=== PATIENT | female | born 1945 | race Caucasian/White ===

== ENCOUNTER → 2018-05-31 10:55 | Outpatient (CLI) | payer MEDICARE, OTHER, SELFPAY ==
--- NOTE | 2018-05-31 11:30 | MRI_ITS ---
STUDY: MRI BRAIN WITH AND WITHOUT CONTRAST REASON FOR EXAM: Female, 73 years old. Ataxia, bilateral ear fullness. TECHNIQUE: Standardized multiplanar fat and water weighted pulse sequences were obtained. 7 ml of Gadavist contrast material was administered intravenously for the contrast portion of the examination. COMPARISON: None. FINDINGS: There is mild cerebral atrophy with widening of the extra-axial spaces and ventricular dilatation. There are a limited number of small white matter hyperintensities, distributed throughout the deep white matter tracts of the cerebral hemispheres, consistent with mild chronic white matter ischemic changes. Normal bilateral basal ganglia. Normal thalami. There is no extra-axial fluid accumulation. Normal flow voids within the major intracranial circulation suggesting patency by spin echo criteria. There is no enhancing intra-axial or extra-axial abnormality. There is no intracranial mass or enhancing lesion. 7th and 8th cranial nerves are unremarkable. There is no enhancing lesion within the internal auditory canals. Cerebellopontine angles are unremarkable. Normal midbrain, amaury and medulla. Normal cerebellum. Normal basal cisterns. Normal bilateral temporal bones. Normal bilateral internal auditory canals. No demonstrated orbital abnormality, within the constraints of a routine brain study. Normal visualized paranasal sinuses. Normal calvarium and skull base. Normal visualized soft tissue structures. Normal visualized upper cervical spine. MRI/Brain W/WO Contrast IMPRESSION: 1. Mild chronic microvascular ischemic changes. Mild atrophy. 2. Normal IACs. Electronically Signed: Lauren Luna MD at 21:01 EDT Tel , Service support ,
[2018-05-31 11:35] LABS: CREATININE FINGERSTICK 0.9 mg/dL (0.55-1.02); EGFR FINGERSTICK > 60.0000 mL/min (>60)
== END ==
PROVIDERS: Visit Provider Otolaryngology Otolaryngology/Facial Plastic Surgery
DX: R27.0 Ataxia, unspecified (principal)
CPT/HCPCS: 70553; A9585

== ENCOUNTER → 2018-06-11 15:17 | Outpatient (CLI) | payer MEDICARE, OTHER, SELFPAY ==
[2018-06-11 17:48] LABS: Absolute Lymphocyte Count 1.35 X10^3/ul (0.83-4.51); Absolute Neutrophil Count 4.1 X10^3/uL (2.0-7.7); Basophil# 0.03 X10^3/uL; Basophil% 0.5 % (0-1); Eosinophil# 0.06 X10^3/uL; Hematocrit 36.3 % (37-47); Hemoglobin 12.1 g/dl (12.0-15.0); Lymphocyte # 1.35 X10^3/ul (4.0); Lymphocyte % 22.5 % (19-41); Mean Corp Hgb Conc 33.3 g/gl (32-36); Mean Corpuscular Hgb 31.5 pg (27.0-32.0); Mean Corpuscular Volume 94.5 fL (81-99); Mean Platelet Vol. 10.4 fl (6.2-12.0); Monocyte# 0.43 X10^3/uL; Monocyte% 7.2 % (0-10); Neutrophil # 4.13 X10^3/uL (2.7-7.7); Neutrophil % 68.6 % (47-70); Platelet Count 211 K/mm3 (150-450); RBC Distribution Width CV 12.8 % (11.6-14.6); RBC Distribution Width SD 43.3 fl (35.1-43.9); Red Blood Count 3.84 M/mm3 (4.2-5.4)
[2018-06-11 17:52] LABS: POSITIVE COUNT NO; POSITIVE DIFFERENTIAL NO; POSITIVE MORPHOLOGY NO
[2018-06-11 18:06] LABS: Vitamin B12 294 pg/mL (211-911)
[2018-06-11 18:27] LABS: AST(SGOT) 19 U/L (15-37); Alanine Aminotransfer ALT/SGPT 23 U/L (13-56); Albumin, Serum 3.5 g/dL (3.2-5.0); Alkaline Phosphatase 68 U/L (45-117); Anion Gap 8 (5-15); BUN 27 mg/dL (7-18); BUN/Creat Ratio 31.1 RATIO (10-20); Calcium,Total 8.8 mg/dL (8.5-10.1); Chloride 107 mmol/L (98-107); Creatinine, Serum 0.87 mg/dL (0.55-1.02); EST Glomerular Filtration Rate 68 mL/min (>60); Est Glom Filt Rate - Afr Amer 82 mL/min (>60); Ferritin 82 ng/mL (8-252); Globulin 3.6 g/dL (2.2-4.2); Glucose 91 mg/dL (74-106); Iron 50 ug/dL (50-170); Iron Binding Capacity,Total 303 ug/dL (250-450); Potassium 3.9 mmol/L (3.5-5.1); Protein, Total 7.1 g/dL (6.4-8.2); Sodium Level 142 mmol/L (136-145); Thyroid Stim Hormone (TSH) 0.63 uIU/mL (0.358-3.74)
== END ==
PROVIDERS: Family Provider Family Medicine; PCP Family Medicine; Visit Provider Family Medicine
DX: R35.8 Other polyuria (principal); R42 Dizziness and giddiness; D64.9 Anemia, unspecified
CPT/HCPCS: 36415; 80053; 82607; 82728; 82746; 83540; 83550; 84443; 85025

== ENCOUNTER → 2018-07-08 13:51 | Outpatient (CLI) | payer MEDICARE, OTHER, SELFPAY ==
--- NOTE | 2018-07-08 13:53 | ECHOD_ITS ---
Reason For Study: Murmur Procedure This was a 2D Doppler, Color Flow transthoracic echocardiogram. Exam performed in department. Left Ventricle Normal size and thickness. The estimated ejection fraction is 65 %. Stage 1 diastolic dysfunction. No regional wall motion abnormalities noted. Right Ventricle Normal size and thickness. Normal systolic function. Atria Normal left atrium. Normal right atrium. Normal atrial septum. Bubble contrast study negative for right to left interatrial shunt. Mitral Valve The mitral valve is structurally normal. No prolapse or stenosis seen. Trivial mitral valve insufficiency. Tricuspid Valve Normal tricuspid valve. Mild (1+) tricuspid valve insufficiency. Right ventricular systolic pressure estimated to be 26 mmHg. Aortic Valve Trisinus/trileaflet aortic valve. Trivial aortic valve insufficiency. Pulmonic Valve Normal pulmonic valve. Great Vessels Normal aortic root. Normal arch. Normal inferior vena cava. Inferior vena cava collapse with sniff. Pericardium/Pleural No pericardial effusion. Medication 20 gauge I.V. with prn adaptor inserted into left arm. Performed a rapid injection of agitated mix of 9 cc saline and 1cc air to assess for atrial septal defect. MMode/2D Measurements & Calculations LVIDd: 4.4 cm IVSd: 1.1 cm Ao root diam: 3.5 cm LVIDs: 2.4 cm LVPWd: 1.1 cm LA dimension: 3.2 cm RVDd: 3.2 cm FS: 45.5 % LAV(MOD-bp): 43.5 ml LA A4 area: 16.7 cm2 RA A4 area: 12.6 cm2 LAV(MOD-bp) Indexed: 26.7 ml/m2 LAV(MOD-sp2): 49.4 ml LAV(MOD-sp4): 37.7 ml Time Measurements MV dec time: 0.19 sec Doppler Measurements & Calculations MV E max luis: 71.7 cm/sec Lat Peak E' Luis: 8.7 cm/sec MV V2 max: 93.8 cm/sec MV A max luis: 83.8 cm/sec E/E' lat: 8.2 MV max P.5 mmHg MV E/A: 0.86 MV V2 mean: 50.6 cm/sec MV mean P.2 mmHg MV V2 VTI: 26.7 cm MV P1/2t max luis: 82.8 cm/sec Ao V2 max: 128.1 cm/sec AI max luis: 417.9 cm/sec MV P1/2t: 64.6 msec Ao max P.6 mmHg AI max P.8 mmHg MV dec slope: 375.7 cm/sec2 Ao V2 mean: 81.2 cm/sec AI dec slope: 210.9 cm/sec2 MVA(P1/2t): 3.4 cm2 Ao mean P.1 mmHg AI P1/2t: 580.4 msec Ao V2 VTI: 25.7 cm LV V1 max: 98.5 cm/sec PA V2 max: 89.6 cm/sec TR max luis: 232.3 cm/sec LV V1 max P.9 mmHg TR max P.6 mmHg LV V1 mean P.8 mmHg LV V1 mean: 63.2 cm/sec LV V1 VTI: 21.1 cm Interpretation Summary The estimated ejection fraction is 65 %. Stage 1 diastolic dysfunction. Trivial mitral valve insufficiency. Mild (1+) tricuspid valve insufficiency. Right ventricular systolic pressure estimated to be 26 mmHg. Trivial aortic valve insufficiency. Bubble contrast study negative for right to left interatrial shunt. There is no comparison study available. Ordering Physician: Dane Castro Referring Physician: Dane Castro Performed By: Iain Vega RCS
== END ==
PROVIDERS: Family Provider Family Medicine; PCP Family Medicine; Referring Provider Family Medicine; Visit Provider Family Medicine
DX: R01.1 Cardiac murmur, unspecified (principal)
CPT/HCPCS: 93306; A4216

== ENCOUNTER → 2018-08-12 11:52 | Outpatient (CLI) | payer MEDICARE, OTHER, SELFPAY ==
--- NOTE | 2018-08-12 11:58 | BI_ITS ---
MAMMOGRAPHY - BILATERAL SCREENING REASON FOR EXAM: Female, 73 years old. Routine annual screening examination. PERTINENT HISTORY: Non-contributory. TECHNIQUE: Digital bilateral breast bety (3D mammographic acquisition) in the CC and MLO projections. 2-D mediolateral oblique (MLO) and craniocaudad (CC) views of both breasts were obtained. CAD: Full Field Digital Mammography with Computer Added Detection was performed. COMPARISON: No comparison mammograms available at this time. If any prior films become available, an addendum to this report can be generated. FINDINGS: Breast Composition: There are scattered areas of fibroglandular density. There are no dominant masses or suspicious calcifications. No other significant abnormalities are identified. BI/SCREENING MAMM (CAD), BILAT IMPRESSION: Negative screening mammogram. Yearly followup mammogram recommended. (A) ASSESSMENT CATEGORY: BIRADS Category 1: Negative. A letter regarding these results will be sent to the patient by the facility within 30 days. Approximately 10% of breast cancers are not detected by mammography. A normal mammogram should not delay biopsy of a clinically suspicious abnormality. [id number] Electronically Signed: Pedro Sorto MD at 15:26 EST Tel [phone], Service support ,
== END ==
PROVIDERS: Family Provider Family Medicine; PCP Family Medicine; Visit Provider Family Medicine
DX: Z12.31 Encounter for screening mammogram for malignant neoplasm of breast (principal)
CPT/HCPCS: 77063; 77067

== ENCOUNTER 2018-08-30 07:11 | Day surgery (SDC) | payer MEDICARE, OTHER, SELFPAY ==
[2018-08-12 15:21] VITALS: BMI 28.2
[2018-08-30] VITALS (7 sets, daily range): BP systolic 126–138; BP diastolic 65–73; PULSE 66–78; RESP 16–18; TEMP 36.2–36.9; O2SAT 96–100; BMI 29.0
--- NOTE | 2018-08-30 08:44 | OP.ENDO_ITS ---
Patient Name: Sharita Crews Procedure Date: 08/30/2018 8:15 AM Date of : 1945 Age: 73 Procedure: Colonoscopy Indications: Screening for colorectal malignant neoplasm Providers: Marcial Shepard MD Referring MD: Dane Castro Medicines: See the Anesthesia note for documentation of the administered medications Patient Profile: Last Colonoscopy: none. The patient's first colonoscopy is today. Complications: No immediate complications. Procedure: Pre-Anesthesia Assessment: - Prior to the procedure, a History and Physical was performed, and patient medications and allergies were reviewed. The patient's tolerance of previous anesthesia was also reviewed. The risks and benefits of the procedure and the sedation options and risks were discussed with the patient. All questions were answered, and informed consent was obtained. Prior Anticoagulants: The patient has taken no previous anticoagulant or antiplatelet agents. ASA Grade Assessment: II - A patient with mild systemic disease. After reviewing the risks and benefits, the patient was deemed in satisfactory condition to undergo the procedure. After I obtained informed consent, the scope was passed under direct vision. Throughout the procedure, the patient's blood pressure, pulse, and oxygen saturations were monitored continuously. The pediatric colonoscope was introduced through the anus and advanced to the cecum, identified by appendiceal orifice and ileocecal valve. The colonoscopy was performed without difficulty. The patient tolerated the procedure well. The quality of the bowel preparation was good. The ileocecal valve and the appendiceal orifice were photographed. Scope In: 8:27:36 AM Scope Withdrawal Time 0 hours 6 minutes 35 seconds Scope Out: 8:40:08 AM Total Procedure Duration Time 0 hours 12 minutes 32 seconds Findings: The digital rectal exam findings include non-thrombosed external hemorrhoids, non-thrombosed internal hemorrhoids and internal hemorrhoids that prolapse with straining, but spontaneously regress to the resting position (Grade II). Pertinent negatives include normal sphincter tone. Multiple diverticula were found in the sigmoid colon. The exam was otherwise without abnormality. Impression: - Non-thrombosed external hemorrhoids, non-thrombosed internal hemorrhoids and internal hemorrhoids that prolapse with straining, but spontaneously regress to the resting position (Grade II) found on digital rectal exam. - Diverticulosis in the sigmoid colon. - The examination was otherwise normal. - No specimens collected. Recommendation: - Discharge patient to home. - Resume previous diet. - Continue present medications. - Repeat colonoscopy in 10 years for screening purposes. Procedure Code(s): --- Professional --- 34666, Colonoscopy, flexible; diagnostic, including collection of specimen(s) by brushing or washing, when performed (separate procedure) Diagnosis Code(s): --- Professional --- Z12.11, Encounter for screening for malignant neoplasm of colon K64.1, Second degree hemorrhoids K64.4, Residual hemorrhoidal skin tags K57.30, Diverticulosis of large intestine without perforation or abscess without bleeding CPT copyright 2017 [employer] [employer]. All rights reserved. The codes documented in this report are preliminary and upon agent review may be revised to meet current compliance requirements. Marcial Shepard MD 08/30/2018 8:43:56 AM This report has been signed electronically. Number of Addenda: 0 Note Initiated On: 08/30/2018 8:15 AM
--- OUTSIDE RECORDS SUMMARY | 2018-10-15 18:56 | XMS RPT_ITS ---
:1945 Author Organization OHIP Care Team Providers Name Role Phone Marcial Shepard Attending Unavailable Willi Ceja Attending Unavailable Willi Ceja Referring Unavailable Primay Care Physicia, No Primary Care Unavailable Dane Castro Attending Unavailable Dane Castro Primary Care Unavailable Dane Castro Attending Unavailable Dane Castro Primary Care Unavailable Dane Castro Referring Unavailable Thom Chavez Attending Unavailable Dane Castro Referring Unavailable Dane Castro Attending Unavailable Dane Castro Primary Care Unavailable Marcial Shepard Attending Unavailable Dane Castro Referring Unavailable Marcial Shepard Attending Unavailable Marcial Shepard Referring Unavailable Dane Castro Primary Care Unavailable PROBLEMS PROBLEMS DATE TYPE CONDITION / CODE ATTENDING STATUS SOURCE 10/01/2018 Unknown Z12.11 - Encounter Marcial Shepard for screening for Community malignant neoplasm [facility] / Repository Z12.11(ICD-10) 10/01/2018 Unknown K64.1 - Second Marcial Shepard degree hemorrhoids / Community K64.1(ICD-10) Hospital Repository 10/01/2018 Unknown K57.30 - Marcial Sheaprd Diverticulosis of [facility] large intestine [facility] without perforation Repository or abscess without bleeding / K57.30(ICD-10) PROCEDURES PROCEDURES No Procedure Records FoundRESULTS RESULTS OPERATIVE REPORT - Observed: 08/30/2018 Status: F Source: [facility] 8:44 AM [facility] REPOSITORY [facility] Medical Records Department [address] [place] [address] Operative Report - Endoscopy MR#: [id number] Acct: [id number] Name: SHARITA CREWS Rep #: [id number] : 1945 73 From: Marcial Shepard MD PCP: Dane Castro MD Status: REG [facility] Patient Name: Sharita Crews Procedure Date: 08/30/2018 8:15 AM Date of : 1945 Age: 73 Procedure: Colonoscopy Indications: Screening for colorectal malignant neoplasm Providers: Marcial Shepard MD Referring MD: Dane Castro Medicines: See the Anesthesia note for documentation of the administered medications Patient Profile: Last Colonoscopy: none. The patient's first colonoscopy is today. Complications: No immediate complications. Procedure: Pre-Anesthesia Assessment: - Prior to the procedure, a History and Physical was performed, and patient medications and allergies were reviewed. The patient's tolerance of previous anesthesia was also reviewed. The risks and benefits of the procedure and the sedation options and risks were discussed with the patient. All questions were answered, and informed consent was obtained. Prior Anticoagulants: The patient has taken no previous anticoagulant or antiplatelet agents. ASA Grade Assessment: II - A patient with mild systemic disease. After reviewing the risks and benefits, the patient was deemed in satisfactory condition to undergo the procedure. After I obtained informed consent, the scope was passed under direct vision. Throughout the procedure, the patient's blood pressure, pulse, and oxygen saturations were monitored continuously. The pediatric colonoscope was introduced through the anus and advanced to the cecum, identified by appendiceal orifice and ileocecal valve. The colonoscopy was performed without difficulty. The patient tolerated the procedure well. The quality of the bowel preparation was good. The ileocecal valve and the appendiceal orifice were photographed. Scope In: 8:27:36 AM Scope Withdrawal Time 0 hours 6 minutes 35 seconds Scope Out: 8:40:08 AM Total Procedure Duration Time 0 hours 12 minutes 32 seconds Findings: The digital rectal exam findings include non-thrombosed external hemorrhoids, non-thrombosed internal hemorrhoids and internal hemorrhoids that prolapse with straining, but spontaneously regress to the resting position (Grade II). Pertinent negatives include normal sphincter tone. Multiple diverticula were found in the sigmoid colon. The exam was otherwise without abnormality. Impression: - Non-thrombosed external hemorrhoids, non-thrombosed internal hemorrhoids and internal hemorrhoids that prolapse with straining, but spontaneously regress to the resting position (Grade II) found on digital rectal exam. - Diverticulosis in the sigmoid colon. - The examination was otherwise normal. - No specimens collected. Recommendation: - Discharge patient to home. - Resume previous diet. - Continue present medications. - Repeat colonoscopy in 10 years for screening purposes. Procedure Code(s): --- Professional --- 48708, Colonoscopy, flexible; diagnostic, including collection of specimen(s) by brushing or washing, when performed (separate procedure) Diagnosis Code(s): --- Professional --- Z12.11, Encounter for screening for malignant neoplasm of colon K64.1, Second degree hemorrhoids K64.4, Residual hemorrhoidal skin tags K57.30, Diverticulosis of large intestine without perforation or abscess without bleeding CPT copyright 2017 [employer]. All rights reserved. The codes documented in this report are preliminary and upon per diem clerk review may be revised to meet current compliance requirements. Marcial Shepard MD 08/30/2018 8:43:56 AM This report has been signed electronically. Number of Addenda: 0 Note Initiated On: 08/30/2018 8:15 AM 08/30/18 0843 Date Marcial Shepard MD Cosign Signature: Date (if indicated) CC: Dane Castro MD; Marcial Shepard MD Date Dictated: 08/30/18814 Date Transcribed: Gambling Floor Supervisor: SURYA Signed SURGERY VISIT REPORT Observed: 08/12/2018 Status: F Source: [place] 6:04 PM [facility] REPOS[facility] [address] [place] [address] OFFICE VISIT Date of Service: 08/12/18 MR#: [id number] Acct: [id number] Name: SHARITA CREWS Rep #: [id number] : 1945 Provider: Marcial Shepard MD Age/Sex: 73/F Location: [facility] Status: Signed Intake Vital Signs08/12/18 Height 5 ft 0.75 in 08/12/18 Weight: 148 lb 08/12/18 Body Mass Index (BMI) 28.2 Intake Visit 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 Hand Required: No Is patient in pain?: No Allergies No Known Allergies Allergy (Unverified 08/12/18 15:21) Medications NK 08/12/18 [History Confirmed 08/12/18] PFSH Medical History Screening for intestinal cancer (Acute) Surgical History S/P cataract extraction (Acute) s/p dental extraction (Acute) Family History Mother Diabetes Heart disease Hypertension CVA (cerebral vascular accident) Thyroid disorder Father Heart disease Brother CAD (coronary artery disease) Social History Smoking Status: Never smoker alcohol intake: never HPI HPI HPI: SHARITA CREWS, is a 73 F who presents to the office today for surgical consultation regarding a screening colonoscopy. The patient is age 73. She has never previously had a colonoscopy. She denies family history of colon cancer or colon polyps. On further discussion with her it is apparent apparently over the years that she has been variably compliant with her screening mammography as well. She denies bright red blood per rectum or melena. The patient is referred by Dr Dane Castro for a screening colonoscopy and a written copy of my surgical consult and recommendations will be returned to him. Fortunately she otherwise enjoys a good quality of life ROS General General: Yes fatigue; no weight change, appetite, colon cancer, breast cancer or weakness HEENT HEENT: Yes eye injury and eye surgery; no difficulty swallowing, swollen glands or hoarseness Endo Endocrine: No thyroid disease, diabetes mellitus, thyroid cancer, Hair loss, heat intolerance or cold intolerance Skin Skin: Yes rash; no changing moles Breast Breast: No left breast lump, right breast lump, nipple discharge, breast pain, abnormal mammogram, abnormal US or breast enlargement Musc Musculoskeletal: No back problems, arthritis, rheumatoid arthritis, gout or joint pain Cardio Cardiovascular: Yes murmur; no pacemaker, heart disease, atrial fibrillation, high blood pressure, heart attack, heart stent, palpitations, shortness of breat with exertion or chest pain Psych Psychiatric: No depression, anxiety or hearing voices Resp Respiratory: No shortness of breath, No sleep apnea, No cough, No COPD, No asthma, No emphysema, No wheezing Gastro Gastrointestinal: Yes nausea or vomiting, No abdominal pain, No diarrhea, No constipation, No blood in stool, No acid reflux, No hemorrhoids, No ulcers, No gallbladder problem, No black,tarry stools Keny Hematologic: No blood thinners, No blood disorders, No bleeding, No anemia, No blood clots Neuro Neurologic: No system reviewed and no additional complaints, except as docu, No as per HPI, No abnormal walking, No abnormal hearing, No abnormal movements, No abnormal speech, No behavioral changes, No burning sensations, No confusion, No seizure-like activity, No unsteadiness, No dizziness, No localized weakness, No frequent falls, No headache(s), No lack of coordination, No loss of vision, No memory loss, No numbness, No other visual disturbances, No radiating pain, No restless legs, No sensory deficit, No fainting, No tingling, No tremor(s), No weakness, No other Exam Const General: cooperative, healthy appearing Nutritional Appearance: overweight Orientation: alert, awake, oriented x3 HENMT Head: normal to inspection Chest Chest palpation AND inspection: normal inspection of the chest Breast Palpation: No nipple discharge Resp Effort AND Inspection: normal respiratory effort Auscultation: clear to auscultation bilaterally Cardio Rate: regular rate Rhythm: regular rhythm Heart Sounds: murmur GI Palpation: soft, no hepatosplenomegaly Auscultation: normal bowel sounds Skin General: no rashes or lesions noted Neuro General: alert Extrem General: no clubbing, cyanosis or edema Psych Affect: normal affect Assessment AND Plan Problems 1. Screening for intestinal cancer Z12.10 Plan I am recommending to the patient a screening colonoscopy with possible biopsy or polypectomy is indicated. She is aware of the technique, benefits, risks, alternatives. She is older at age 73. I will pursue with monitored anesthesia care. She has had an opportunity to ask and have questions answered. We will schedule and proceed at her discretion. I very much appreciate the ongoing opportunity of assisting with her surgical care. Cc: Dr Dane Shepard M.D., F.A.C.S. Orders Orders: Coding Level of Care Code Exp prob focused,strt fwd Diagnoses Screening for intestinal cancer Z12.10 08/12/18 1804 <Electronically signed by Marcial Sheaprd MD> Date Marcial Shepard MD Cosigner Signature: Date (if applicable) CC: Dane Castro MD SCREENING MAMM (CAD), Observed: 08/12/2018 Status: F Source: [facility] 11:58 AM [facility] REPOSIT[facility] Imaging Services [address] [place] [id number] SCREENING MAMM (CAD), BILAT MR#: [id number] Acct: [id number] Name: SHARITA CREWS Rep #: [id number] : 1945 F 73 From: Pedro Sorto MD PCP: Dane Castro MD Status: [facility] Study: SCREENING MAMM (CAD), BILAT Date of Exam: 08/12/18 Exam# [id number] Ordering Dr: Dane Castro MD MAMMOGRAPHY - BILATERAL SCREENING REASON FOR EXAM: Female, 73 years old. Routine annual screening examination. PERTINENT HISTORY: Non-contributory. TECHNIQUE: Digital bilateral breast bety (3D mammographic acquisition) in the CC and MLO projections. 2-D mediolateral oblique (MLO) and craniocaudad (CC) views of both breasts were obtained. CAD: Full Field Digital Mammography with Computer Added Detection was performed. COMPARISON: No comparison mammograms available at this time. If any prior films become available, an addendum to this report can be generated. FINDINGS: Breast Composition: There are scattered areas of fibroglandular density. There are no dominant masses or suspicious calcifications. No other significant abnormalities are identified. BI/SCREENING MAMM (CAD), BILAT IMPRESSION: Negative screening mammogram. Yearly followup mammogram recommended. (A) ASSESSMENT CATEGORY: BIRADS Category 1: Negative. A letter regarding these results will be sent to the patient by the facility within 30 days. Approximately 10% of breast cancers are not detected by mammography. A normal mammogram should not delay biopsy of a clinically suspicious abnormality. [id number] Electronically Signed: Pedro Sorto MD at 15:26 EST Tel [phone], Service support , CC: Dane Castro MD Gambling Floor Supervisor: Signed ECHOCARDIOGRAM COMPLETE Observed: 07/09/2018 Status: F Source: [place] 9:33 AM [facility] REPOSITORY [facility] Cardiovascular Services [address] [place] [address] Echo Complete 07/08/18 1401 MR#: [id number] Acct: [id number] Name: SHARITA CREWS Rep #: [id number] : 1945 73 From: Thom Chavez MD Attending Dr: Dane Castro MD Status: REG CLI Ordering Dr: Dane Castro MD Date: 07/08/18 Location: [facility] Sex: F C Admitted: Reason For Study: Murmur Procedure This was a 2D Doppler, Color Flow transthoracic echocardiogram. Exam performed in department. Left Ventricle Normal size and thickness. The estimated ejection fraction is 65 %. Stage 1 diastolic dysfunction. No regional wall motion abnormalities noted. Right Ventricle Normal size and thickness. Normal systolic function. Atria Normal left atrium. Normal right atrium. Normal atrial septum. Bubble contrast study negative for right to left interatrial shunt. Mitral Valve The mitral valve is structurally normal. No prolapse or stenosis seen. Trivial mitral valve insufficiency. Tricuspid Valve Normal tricuspid valve. Mild (1+) tricuspid valve insufficiency. Right ventricular systolic pressure estimated to be 26 mmHg. Aortic Valve Trisinus/trileaflet aortic valve. Trivial aortic valve insufficiency. Pulmonic Valve Normal pulmonic valve. Great Vessels Normal aortic root. Normal arch. Normal inferior vena cava. Inferior vena cava collapse with sniff. Pericardium/Pleural No pericardial effusion. Medication 20 gauge I.V. with prn adaptor inserted into left arm. Performed a rapid injection of agitated mix of 9 cc saline and 1cc air to assess for atrial septal defect. MMode/2D Measurements AND Calculations LVIDd: 4.4 cm IVSd: 1.1 cm Ao root diam: 3.5 cm LVIDs: 2.4 cm LVPWd: 1.1 cm LA dimension: 3.2 cm RVDd: 3.2 cm FS: 45.5 % LAV(MOD-bp): 43.5 ml LA A4 area: 16.7 cm2 RA A4 area: 12.6 cm2 LAV(MOD-bp) Indexed: 26.7 ml/m2 LAV(MOD-sp2): 49.4 ml LAV(MOD-sp4): 37.7 ml Time Measurements MV dec time: 0.19 sec Doppler Measurements AND Calculations MV E max luis: 71.7 cm/sec Lat Peak E' Luis: 8.7 cm/sec MV V2 max: 93.8 cm/sec MV A max luis: 83.8 cm/sec E/E' lat: 8.2 MV max P.5 mmHg MV E/A: 0.86 MV V2 mean: 50.6 cm/sec MV mean P.2 mmHg MV V2 VTI: 26.7 cm MV P1/2t max luis: 82.8 cm/sec Ao V2 max: 128.1 cm/sec AI max luis: 417.9 cm/sec MV P1/2t: 64.6 msec Ao max P.6 mmHg AI max P.8 mmHg MV dec slope: 375.7 cm/sec2 Ao V2 mean: 81.2 cm/sec AI dec slope: 210.9 cm/sec2 MVA(P1/2t): 3.4 cm2 Ao mean P.1 mmHg AI P1/2t: 580.4 msec Ao V2 VTI: 25.7 cm LV V1 max: 98.5 cm/sec PA V2 max: 89.6 cm/sec TR max luis: 232.3 cm/sec LV V1 max P.9 mmHg TR max P.6 mmHg LV V1 mean P.8 mmHg LV V1 mean: 63.2 cm/sec LV V1 VTI: 21.1 cm Interpretation Summary The estimated ejection fraction is 65 %. Stage 1 diastolic dysfunction. Trivial mitral valve insufficiency. Mild (1+) tricuspid valve insufficiency. Right ventricular systolic pressure estimated to be 26 mmHg. Trivial aortic valve insufficiency. Bubble contrast study negative for right to left interatrial shunt. There is no comparison study available. Ordering Physician: Dane Castro Referring Physician: Dane Castro Performed By: Iain Vega RCS 07/09/18931 Date Thom Chavez MD CC: Dane Castro MD Date Dictated: 07/08/18 1401 Date Transcribed: 07/09/18931 Gambling Floor Supervisor: Signed CBC W/DIFF, AUTOMATED Collected: 06/11/2018 Status: F Source: [place] 3:18 PM [facility] REPOSIT[facility] TYPE CODE TESTS RESULT OUT OF RANGE REFERENCE UNITS LAB L100.1000 4.4-11.0 K/mm3 Normal WBC 6.0 LAB L100.1200 4.2-5.4 M/mm3 Low RBC 3.84 LAB L100.1300 12.0-15.0 g/dl Normal HGB 12.1 LAB L100.1400 37-47 % Low HCT 36.3 LAB L100.1500 81-99 fL Normal MCV 94.5 LAB L100.1600 27.0-32.0 pg Normal MCH 31.5 LAB L100.1700 32-36 g/gl Normal MCHC 33.3 LAB L100.1810 11.6-14.6 % Normal RDW CV 12.8 LAB L100.1820 35.1-43.9 fl Normal RDW SD 43.3 LAB L100.1900 150-450 K/mm3 Normal PLT 211 LAB L100.2000 6.2-12.0 fl Normal MPV 10.4 LAB L100.2100 47-70 % Normal NEUT% 68.6 LAB L100.2200 19-41 % Normal LY% 22.5 LAB L100.2300 0-10 % Normal MONO% 7.2 LAB L100.2400 0-5 % Normal EO% 1.0 LAB L100.2500 0-1 % Normal BASO% 0.5 LAB L100.2550 0.0-0.9 % Normal IM GRAN % 0.200 Result Comment: IG% - Immature Granulocytes (promyelocytes, myelocytes and metamyelocytes) > 1% indicates that a LEFT SHIFT is Present. LAB L100.2620 2.0-7.7 X10 3/uL Normal Absolute Neut 4.1 LAB L100.2720 0.83-4.51 X10 3/ul Normal Absolute Lymph 1.35 Performed By: #### L100.0100, L500.4050, L501.9520 #### [facility] [address] [place], [place], [address] COMPREHENSIVE METABOLIC Collected: 06/11/2018 Status: F Source: [facility] 3:18 PM [facility] Order Comment: Is Patient Taking Vitamins or Folic Acid Supplements? N TYPE CODE TESTS RESULT OUT OF RANGE REFERENCE UNITS LAB L501.0100 74-106 mg/dL Normal GLU 91 Result Comment: Please note revised GLUCOSE reference range effective 2017. LAB L501.1000 7-18 mg/dL High BUN 27 LAB L501.1100 0.55-1.02 mg/dL Normal CREAT,SERUM 0.87 Result Comment: The validity of the calculated GFR AND GFRAA in patients over 70 years has not been determined. Clinical correlation is essential. LAB L501.1110 >60 mL/min Normal EST GFR 68 Result Comment: Non- GFR Calc LAB L501.1115 >60 mL/min Normal EST GFR - AA 82 Result Comment: GFR Calc LAB L501.1300 10-20 RATIO High BUN/CRE 31.1 LAB L501.1500 6.4-8.2 g/dL T Normal PROT 7.1 LAB L501.1800 3.2-5.0 g/dL Normal ALB 3.5 LAB L501.1950 2.2-4.2 g/dL Normal GLOB 3.6 LAB L501.2000 0.9-2.4 RATIO Normal A/G 1.0 LAB L501.2200 8.5-10.1 mg/dL CA Normal 8.8 LAB L501.4100 15-37 U/L Normal AST 19 LAB L501.4305 45-117 U/L Normal ALK P 68 LAB L501.4405 13-56 U/L Normal ALT 23 LAB L501.4600 0.20-1.00 mg/dL T Normal BILI 0.20 LAB L501.5300 136-145 mmol/L NA Normal 142 LAB L501.5600 3.5-5.1 mmol/L K Normal 3.9 LAB L501.5900 98-107 mmol/L CL Normal 107 LAB L501.6100 21.0-32.0 mmol/L Normal CO2 27.0 LAB L501.6200 5-15 Normal GAP 8 Performed By: #### L100.0100, L500.4050, L501.9520 #### [facility] [address] [facility] [place], [address] THYROID STIM HORMONE Collected: 06/11/2018 Status: F Source: [facility] (T[facility]) 3:18 PM [facility] RE[facility] Order Comment: Is Patient Taking Vitamins or Folic Acid Supplements? N TYPE CODE TESTS RESULT OUT OF RANGE REFERENCE UNITS LAB L501.9520 0.358-3.74 uIU/mL Normal TSH 0.63 Performed By: #### L100.0100, L500.4050, L501.9520 #### [facility] [address] [facility] [place], [address] VITAMIN B12 Collected: 06/11/2018 Status: F Source: [place] 3:18 PM [facility] TYPE CODE TESTS RESULT OUT OF RANGE REFERENCE UNITS LAB L503.0105 211-911 pg/mL Normal Vitamin B12 294 Performed By: #### L503.0105, L503.6075, L503.6150, L503.6550, L506.0250 #### [facility] [address] [facility] [place], [address] IRON BINDING Collected: 06/11/2018 Status: F Source: [facility] 3:18 PM [facility] Order Comment: Is Patient Taking Vitamins or Folic Acid Supplements? N TYPE CODE TESTS RESULT OUT OF RANGE REFERENCE UNITS LAB L503.6075 250-450 ug/dL Normal TIBC 303 Performed By: #### L503.0105, L503.6075, L503.6150, L503.6550, L506.0250 #### [facility] [address] [place], [address] IRON Collected: 06/11/2018 Status: F Source: [place] 3:18 PM [facility] Order Comment: Is Patient Taking Vitamins or Folic Acid Supplements? N TYPE CODE TESTS RESULT OUT OF RANGE REFERENCE UNITS LAB L503.6150 50-170 ug/dL Normal IRON 50 Performed By: #### L503.0105, L503.6075, L503.6150, L503.6550, L506.0250 #### [facility] [address] [facility] [place], [address] FERRITIN Collected: 06/11/2018 Status: F Source: [place] 3:18 PM [facility] Order Comment: Is Patient Taking Vitamins or Folic Acid Supplements? N TYPE CODE TESTS RESULT OUT OF RANGE REFERENCE UNITS LAB L503.6550 8-252 ng/mL Normal FERRITIN 82 Performed By: #### L503.0105, L503.6075, L503.6150, L503.6550, L506.0250 #### [facility] [facility] [place], [address] FOLATES, (FOLIC ACID) Collected: 06/11/2018 Status: F Source: [place] 3:18 PM [facility] Order Comment: Is Patient Taking Vitamins or Folic Acid Supplements? N TYPE CODE TESTS RESULT OUT OF RANGE REFERENCE UNITS LAB L506.0250 3.1-55.4 ng/mL Normal FOLATES 19.00 Performed By: #### L503.0105, L503.6075, L503.6150, L503.6550, L506.0250 #### [facility] [address] [facility] [place], [address] CREATININE FINGERSTICK Collected: 05/31/2018 Status: F Source: [place] 11:22 AM [facility] RE[facility] TYPE CODE TESTS RESULT OUT OF RANGE REFERENCE UNITS LAB L9100.0210 0.55-1.02 mg/dL Normal CREATININE WB 0.9 LAB L9100.0220 >60 mL/min EGFR WB Normal > 60.0000 Performed By: #### L9100.0200 #### [facility] Point of Care [address] [place] [address] BRAIN W/WO CONTRAST Observed: 05/31/2018 Status: F Source: [place] 11:03 AM [facility] REPOSIT[facility] Imaging Services [address] [place] [address] Brain W/WO Contrast MR#: [id number] Acct: [id number] Name: SHARITA CREWS Rep #: [id number] : 1945 F 73 From: Lauren Luna MD PCP: Care Physician, No Primary Status: REG CLI Study: Brain W/WO Contrast Date of Exam: 05/31/18 Exam# [id number] Ordering Dr: Willi Ceja MD STUDY: MRI BRAIN WITH AND WITHOUT CONTRAST REASON FOR EXAM: Female, 73 years old. Ataxia, bilateral ear fullness. TECHNIQUE: Standardized multiplanar fat and water weighted pulse sequences were obtained. 7 ml of Gadavist contrast material was administered intravenously for the contrast portion of the examination. COMPARISON: None. FINDINGS: There is mild cerebral atrophy with widening of the extra- axial spaces and ventricular dilatation. There are a limited number of small white matter hyperintensities, distributed throughout the deep white matter tracts of the cerebral hemispheres, consistent with mild chronic white matter ischemic changes. Normal bilateral basal ganglia. Normal thalami. There is no extra-axial fluid accumulation. Normal flow voids within the major intracranial circulation suggesting patency by spin echo criteria. There is no enhancing intra- axial or extra-axial abnormality. There is no intracranial mass or enhancing lesion. 7th and 8th cranial nerves are unremarkable. There is no enhancing lesion within the internal auditory canals. Cerebellopontine angles are unremarkable. Normal midbrain, amaury and medulla. Normal cerebellum. Normal basal cisterns. Normal bilateral temporal bones. Normal bilateral internal auditory canals. No demonstrated orbital abnormality, within the constraints of a routine brain study. Normal visualized paranasal sinuses. Normal calvarium and skull base. Normal visualized soft tissue structures. Normal visualized upper cervical spine. MRI/Brain W/WO Contrast IMPRESSION: 1. Mild chronic microvascular ischemic changes. Mild atrophy. 2. Normal IACs. Electronically Signed: Lauren Luna MD at 21:01 EDT Tel , Service support , CC: No Primary Care Physician; Willi Ceja MD Gambling Floor Supervisor: Signed ALLERGIES ALLERGIES DATE TYPE / CODE NAME / CODE REACTION SEVERITY SOURCE 08/29/2018 Drug No Known Unknown Dania [facility] Allergy/4160 Allergies/F00 Hospital 23301(SNOMED [id number](RXNOR Repository CT) M) ENCOUNTERS ENCOUNTERS ADMIT/DISCHARGE ACCOUNT ADMITTING ENCOUNTER LOCATION SOURCE NUMBER CLASS 08/30/2018/ [id number] Ambulatory BMSBuilding:B Somis 8 5 [facility] Repository 08/30/2018/ [id number] Ambulatory Somis Somis 8 5 [facility] ing:ENRoom: Repository 14 08/12/2018/ [id number] Ambulatory BMSBuilding:B Dania 8 4 [facility] Repository 08/12/2018 [id number] Ambulatory Dania Dania 4 [facility] ing:OPBI Repository 07/08/2018 [id number] Ambulatory Dania Dania 8 [facility] ing:CVS Repository 07/08/2018 [id number] Ambulatory BMSBuilding:W Somis 5 [facility] Repository 06/11/2018 [id number] Ambulatory Somis Somis 6 [facility] ing:MFPLAB Repository 05/31/2018 [id number] Ambulatory Somis Somis 2 [facility] ing:MRI Repository PAYERS PAYERS ENCOUNTER GUARANTOR PAYER SUBSCRIBER SOURCE 08/30/2018 SHARITA Najera [id number] W Insurance:MEDICARE BURKHOLDERDOB: Community [place] PART A [id number] Number: Repository [id number]: 330 [id number] [phone] () Date:2018-08-13 08/30/2018 Secondary SHARITA E Somis Insurance:AARPPolicy BURKHOLDERDOB: Community Number: [id number] Hospital [id number] Repository Date:8031-01-36[address], [place] [address]CR: 08/30/2018 Tertiary NOT GIVENUNK Somis Insurance:SELF PAY [facility] Number: Effective Repository Date:2018-08-30 08/30/2018 SHARITA E Primary SHARITA E Dania [id number] Insurance:MEDICARE BURKHOLDERDOB: Community LARWILL PART A [id number] [place] Number[facility] Repository [id number]: 330 [id number] [phone] () Date:2018-08-13 08/30/2018 Secondary SHARITA E Dania Insurance:AARPPolicy BURKHOLDERDOB: Community Number: [id number] Hospital [id number] Repository Date:3860-56-63[address], [place] [address]NB: 08/30/2018 Tertiary NOT GIVENUNK Dania Insurance:SELF PAY [facility] Number: Effective Repository Date:2018-08-13 08/12/2018 SHARITA E Primary SHARITA E Somis [id number] [address] Insurance:MEDICARE BURKHOLDERDOB: Community LARWILL PART A [facility] [id number] Number: Repository [id number]: 330 [id number] [phone] () Date:2018-07-03 08/12/2018 Secondary SHARITA E Somis Insurance:AARPPolicy BURKHOLDERDOB: Community Number: [id number] Hospital [id number] Repository Date:4885-34-18[address], [place] [address]ZT: 08/12/2018 Tertiary NOT GIVENUNK Dania Insurance:SELF PAY [facility] Number: Effective Repository Date:2018-08-07 08/12/2018 SHARITA E Primary SHARITA E Dania [id number] W Insurance:MEDICARE BURKHOLDERDOB: Community LARWILL PART A [facility] [id number] Number: Repository [id number]: [phone] [id number] [phone] () Date:2018-07-03 08/12/2018 Secondary SHARITA E Dania Insurance:AARPPolicy BURKHOLDERDOB: Community Number: [id number] Hospital [id number] Repository Date:9623-22-15[address], [place] [address]BC: 08/12/2018 Tertiary NOT GIVENUNK Dania Insurance:SELF PAY [facility] Number: Effective Repository Date:2018-07-03 07/08/2018 SHARITA E Primary SHARITA E Somis [id number] [address] Insurance:MEDICARE BURKHOLDERDOB: Community LARWILL PART A [facility] [id number] Number[place] Repository [id number]: [phone] [id number] [phone] () Date:2018-07-04 07/08/2018 Secondary SHARITA E Somis Insurance:AARPPolicy BURKHOLDERDOB: Community Number: [id number] Hospital [id number] Repository Date:4684-06-35XJ [facility] [address], [place] [address]RI: 07/08/2018 Tertiary NOT GIVENUNK Somis Insurance:SELF PAY [facility] Number: Effective Repository Date:2018-07-04 07/08/2018 SHARITA E Primary SHARITA E Somis [id number] [address] Insurance:MEDICARE BURKHOLDERDOB: Community LARWILL PART A [id number] [place] Number: Repository [id number]: [phone] [id number] [phone] () Date:2018-07-04 07/08/2018 Secondary SHARITA E Dania Insurance:AARPPolicy BURKHOLDERDOB: Community Number: [id number] Hospital [id number] Repository Date:0141-96-01CB [facility] [place], [place] [address]CV: 07/08/2018 Tertiary NOT GIVENUNK Dania Insurance:SELF PAY [facility] Effective Repository Date:2018-07-08 06/11/2018 SHARITA E Primary SHARITA E Somis [id number] W Insurance:MEDICARE BURKHOLDERDOB: Community LARWILL PART A [facility] [id number] Number: Repository [id number]: 330 [id number] [phone] () Date:2018-06-11 06/11/2018 Secondary SHARITA E Somis Insurance:AARPPolicy BURKHOLDERDOB: Community Number: [id number] Hospital [id number] Repository Date:1873-04-75[address], [place] [address]ZE: 06/11/2018 Tertiary NOT GIVENUNK Dania Insurance:SELF PAY [facility] Number: Effective Repository Date:2018-06-11 05/31/2018 SHARITA E Primary SHARITA E Somis [id number] W Insurance:MEDICARE BURKHOLDERDOB: Community LARWILL PART A [facility] [id number] [place] Number: Repository [id number]: 330 [id number] [phone] () Date:2018-05-23 05/31/2018 Secondary SHARITA E Somis Insurance:AARPPolicy BURKHOLDERDOB: Community Number: [id number] Hospital [id number] Repository Date:1524-70-59WF [facility] [address]44[address], [place] [address]LK: 05/31/2018 Tertiary NOT GIVENUNK Somis Insurance:SELF PAY [facility] Number: Effective Repository Date:2018-05-23
== END 2018-08-30 09:36 | disposition home or self-care (01) ==
LOC: EN 07:12 → AC 07:13
PROVIDERS: Family Provider Family Medicine; PCP Family Medicine; Referring Provider Surgery; Visit Provider Surgery
PROC: 0DJD8ZZ Inspection of Lower Intestinal Tract, Via Natural or Artificial Opening Endoscopic (ICD-10-PCS; CPT 45378; principal; 2018-08-30 08:10)
DX: Z12.11 Encounter for screening for malignant neoplasm of colon (principal); K64.4 Residual hemorrhoidal skin tags; K57.30 Diverticulosis of large intestine without perforation or abscess without bleeding; K64.1 Second degree hemorrhoids; R01.1 Cardiac murmur, unspecified
CPT/HCPCS: G0121; J7120

== ENCOUNTER → 2018-10-24 08:22 | Outpatient (CLI) | payer MEDICARE, OTHER, SELFPAY ==
[2018-08-30 07:33] VITALS: BMI 29.0
--- NOTE | 2018-10-24 08:28 | BD_ITS ---
STUDY: DUAL ENERGY X-RAY ABSORPTIOMETRY / DXA REASON FOR EXAM: Female, 73 years old. The patient is postmenopausal. Loss of height. TECHNIQUE: Bone Mineral Density (BMD) measurements of lumbar spine and bilateral hips were obtained. COMPARISON: Comparison is made with prior examination of May 26, 1999. FINDINGS: Lumbar Spine (L1-L4): g/cm2 (1.369) / T-score (1.6) / Z-score (3.3) Findings are suggestive of normal bone density with a low fracture risk. Increased kyphosis. Left Femur Total: g/cm2 (1.211) / T-score (1.6) / Z-score (3.4) Left Femoral Neck: g/cm2 (1.053) / T-score (0.1) / Z-score (2.0) Right Femur Total: g/cm2 (1.098) / T-score (0.7) / Z-score (2.5) Right Femoral Neck: g/cm2 (0.977) / T-score (-0.4) / Z-score (1.5) The T-Scores on the most recent prior examination were: Lumbar Spine (L1-L4): There has been improvement of bone density since the previous examination. Left Femur Total: which represents a worsening of 1%. BD/Dexa Bone Density Study IMPRESSION: The patient is considered normal as outlined below according to World Vasu Organization (WHO) criteria with a low fracture risk. There has been improvement of bone density since the previous examination. Reference Information: The T-score is the number of standard deviations above or below the standard which is normal for young adults at their peak bone mineral density. The World Health Organization (WHO) interprets the T-scores as follows: Above -1 Normal bone density Between -1 and -2.5 Osteopenia Equal to / or below -2.5 Osteoporosis As a practical clinical guideline, osteopenia may be graded as follows: Mild -1 through -1.5 Moderate -1.6 through -2.0 Severe -2.1 through -2.4 The Z-score is the number of standard deviations above or below age-matched controls. A Z-score of less than -1.5 would be considered abnormal. References: 1. NIH Osteoporosis and Related Bone Diseases http://www.osteo.org 2. International Society for Clinical Densitometry http://www.iscd.org 3. National Osteoporosis Foundation http://www.nof.org Electronically Signed: Pedro Sorto MD at 15:48 EST , Service support ,
== END ==
PROVIDERS: Family Provider Family Medicine; PCP Family Medicine; Referring Provider Family Medicine; Visit Provider Family Medicine
DX: Z13.820 Encounter for screening for osteoporosis (principal); Z78.0 Asymptomatic menopausal state
CPT/HCPCS: 77080

== ENCOUNTER 2020-11-23 10:56 | Outpatient (RCR) | payer MEDICARE, SELFPAY ==
[2018-08-30 07:33] VITALS: BMI 29.0
[2020-11-23] MEDS: COVID-19 VACC, MRNA(PFIZER)/PF 30 MCG/0.3 ML SYRINGE IM (13:44)
[2020-12-14] MEDS: COVID-19 VACC, MRNA(PFIZER)/PF 30 MCG/0.3 ML SYRINGE IM (13:47)
== END 2021-02-22 23:59 ==
LOC: IMMUN 10:56
PROVIDERS: PCP Family Medicine; Visit Provider Family Medicine
DX: Z23 Encounter for immunization (principal)
CPT/HCPCS: 0001A; 0002A; 91300

== ENCOUNTER → 2022-02-28 | Outpatient (CLI) | payer BC, MEDICARE, SELFPAY ==
[2022-02-28 15:41] LABS: Absolute Lymphocyte Count 1.19 X10^3/uL (0.83-4.51); Absolute Neutrophil Count 4.2 X10^3/uL (2.0-7.7); Basophil# 0.04 X10^3/uL; Basophil% 0.7 % (0-1); Eosinophil# 0.05 X10^3/uL; Eosinophils% 0.8 % (0-5); Hematocrit 38.2 % (37-47); Hemoglobin 12.6 g/dL (12.0-15.0); Lymphocyte # 1.19 X10^3/ul (0.83-4.51); Lymphocyte % 20.1 % (19-41); Mean Corpuscular Hgb 31.1 pg (27.0-32.0); Mean Corpuscular Volume 94.3 fL (81-99); Mean Platelet Vol. 10.6 fl (6.2-12.0); Monocyte# 0.42 X10^3/uL; Monocyte% 7.1 % (0-10); NRBC Flagged by Analyzer 0 % (0-5); Neutrophil # 4.22 X10^3/uL (2.7-7.7); Neutrophil % 71.1 % (47-70); Platelet Count 219 K/mm3 (150-450); RBC Distribution Width CV 12.9 % (11.6-14.6); RBC Distribution Width SD 44.9 fl (35.1-43.9); Red Blood Count 4.05 M/mm3 (4.2-5.4); White Blood Count 5.9 K/mm3 (4.4-11.0)
[2022-02-28 17:01] LABS: AST(SGOT) 18 U/L (15-37); Alanine Aminotransfer ALT/SGPT 20 U/L (13-56); Albumin, Serum 3.9 g/dL (3.2-5.0); Alkaline Phosphatase 69 U/L (45-117); Anion Gap 4 (5-15); BUN 20 mg/dL (7-18); BUN/Creat Ratio 19.2 RATIO (10-20); Calcium,Total 9.4 mg/dL (8.5-10.1); Chloride 107 mmol/L (98-107); Cholesterol 254 mg/dL (200); Creatinine, Serum 1.04 mg/dL (0.55-1.02); EST Glomerular Filtration Rate 54 mL/min (>60); Est Glom Filt Rate - Afr Amer 66 mL/min (>60); Globulin 3.8 g/dL (2.2-4.2); Glucose 84 mg/dL (74-106); High Density Lipoprotein 71 mg/dL; Potassium 3.8 mmol/L (3.5-5.1); Protein, Total 7.7 g/dL (6.4-8.2); Sodium Level 141 mmol/L (136-145); Triglycerides 91 mg/dL; Very Low Density Lipoprotein 18 mg/dL (5-40)
== END | disposition home or self-care (01) ==
LOC: MTLAB 11:43
PROVIDERS: PCP Family Medicine; Referring Provider Nurse Practitioner Family; Visit Provider Nurse Practitioner Family
DX: Z00.00 Encounter for general adult medical examination without abnormal findings (principal)
CPT/HCPCS: 36415; 80053; 80061; 85025

== ENCOUNTER → 2022-07-06 | Outpatient (CLI) | payer BC, MEDICARE, SELFPAY ==
[2022-07-06 15:44] LABS: Anion Gap 7 (5-15); BUN 20 mg/dL (7-18); BUN/Creat Ratio 18.9 RATIO (10-20); Calcium,Total 9.3 mg/dL (8.5-10.1); Chloride 107 mmol/L (98-107); Cholesterol 222 mg/dL (200); Creatinine, Serum 1.06 mg/dL (0.55-1.02); EST Glomerular Filtration Rate 53 mL/min (>60); Est Glom Filt Rate - Afr Amer 64 mL/min (>60); Glucose 128 mg/dL (74-106); High Density Lipoprotein 76 mg/dL; Potassium 4.1 mmol/L (3.5-5.1); Sodium Level 140 mmol/L (136-145); Triglycerides 73 mg/dL; Very Low Density Lipoprotein 15 mg/dL (5-40)
[2022-07-06 17:01] LABS: Mucous, Urine 0 SEEN /hpf (<or=2+); Red Blood Cells-Urine 0 SEEN /hpf (0-5); Squamous Epithelial Cells - UA 0 SEEN /hpf (5-10); White Blood Cells 0 SEEN /hpf (0-5)
[2022-07-06 17:59] LABS: Color, Urine Yellow (Yellow); Glucose, Dipstick Normal (Normal); Ketone-Dipstick 5 mg/dl (Negative); Leukocyte Esterase-Dipstick Negative /ul (Negative); Nitrite-Dipstick Negative (Negative); Occult Blood-Urine 25 /ul (Negative); Protein-Dipstick Negative (Negative); Specific Gravity, Urine 1.015 (1.002-1.030); Urine Bilirubin Dipstick Negative (Negative); Urine Clarity Clear (Clear); Urine Urobilinogen Normal (Normal); Urine pH 6.5 (5.0 - 8.0)
[2022-07-06 18:22] LABS: Bacteria 2+ /hpf (None Seen)
== END | disposition home or self-care (01) ==
LOC: MFPLAB 10:23
PROVIDERS: PCP Family Medicine; Referring Provider Family Medicine; Visit Provider Family Medicine
DX: E78.5 Hyperlipidemia, unspecified (principal); R31.9 Hematuria, unspecified; R94.4 Abnormal results of kidney function studies
CPT/HCPCS: 36415; 80048; 80061; 81001

== ENCOUNTER 2022-09-28 21:42 | Emergency (ER) | payer BC, MEDICARE, SELFPAY ==
[2022-09-28 21:43] VITALS: BP 197/85; PULSE 85; RESP 16; TEMP 36.7; O2SAT 97; BMI 29.2
--- NOTE | 2022-09-28 21:57 | CT_ITS ---
INDICATION: trauma EXAMINATION: CT BRAIN - CT Head or Brain W/O Contrast Injection TECHNIQUE: Multiple axial images were obtained of the head without intravenous contrast. A radiation dose optimization technique was used for this scan. IV Contrast dosage and agent: None. COMPARISON: FINDINGS: BRAIN PARENCHYMA: No intra- or extra-axial hemorrhage. Moderate periventricular white matter ischemic changes No evidence of acute infarct. No intracranial mass or mass effect. There is preservation of the osborn/white matter interface. Posterior fossa structures are unremarkable. CSF SPACES: Mild atrophy.. No hydrocephalus. Basal cisterns are patent. CALVARIUM, SKULL BASE, PARANASAL SINUSES AND MASTOID AIR CELLS: Clear. There is a hematoma in the scalp overlying the right frontal bone without associated skull fracture No discrete lytic or blastic abnormalities. ORBITS: Postsurgical changes of the orbits CT/Brain/Head without Contrast IMPRESSION: Hematoma in the scalp overlying the right frontal bone without associated skull fracture Mild atrophy and moderate white matter ischemic change. No acute intracranial hemorrhage Electronically Signed: Regino Jyoce MD at 22:24 EST ,
--- NOTE | 2022-09-28 22:03 | EDS_ITS ---
HPI HPI - Fall History of Present Illness Chief Complaint: Head Injury Informant: patient Occured/Mechanism Occurred: Today (JPTA) Mechanism/Context: Yes same level fall and Yes trip Narrative: Pushing her garbage can out, it got caught on something, causing her to fall into it, hitting her right head. No other injuries. Usually ambulates: Without assistance Pain/Injury Pain Location: head Quality of Pain: - (Sore) Current Severity: Mild Maximum Severity: Moderate Worsened by: Palpation Relieved by: Applying ice Associated Symptoms Associated Symptoms: Negative for Parasthesias, Weakness, Loss of function, Inability to ambulate, Loss of consciousness or Amnesia Narrative Narrative: Injury to the patient's head, accidental fall. No other injuries. Ambulatory, no headache, no nausea or vomiting, no vision changes. Patient is on no antiplatelet or anticoagulant medications. PFSH PFS Medical History Encounter for screening for COVID-19 Non-smoker Screening for intestinal cancer Home Medications NK 08/12/18 [History Last Taken Unknown] Allergy/AdvReac Type Severity Reaction Status Date / Time No Known Allergies Allergy Unverified 09/28/22 21:45 Family History Mother Diabetes Heart disease Hypertension CVA (cerebral vascular accident) Thyroid disorder Father Heart disease Brother CAD (coronary artery disease) Surgical History S/P cataract extraction s/p dental extraction Social History Smoking Status: Never smoker alcohol intake: never ROS ROS ED Constitutional Constitutional ED: Denies chills or fever(s) Eyes Eyes: Denies change in vision or diplopia ENT ENT ED: Denies ear pain, epistaxis, facial pain or rhinorrhea Cardiovascular Cardiovascular: Denies chest pain or palpitations Respiratory/Chest Respiratory/Chest: Denies cough or dyspnea Gastrointestinal Gastrointestinal: Denies abdominal pain, diarrhea, melena, nausea or vomiting Genitourinary Genitourinary ED: Denies dysuria or hematuria Musculoskeletal Musculoskeletal: Denies back pain, extremity pain or neck pain Integumentary Denies abscess, Abrasions, laceration or rash Neurologic Neurologic: Denies confusion, headache(s), paresthesias or weakness EXAM Physical Exam Const Vital Signs: 09/28/22 21:43 09/28/22 21:51 09/28/22 22:24 Temperature 98.1 F Temperature Source Temporal Pulse Rate 85 82 Respiratory Rate 16 14 Respiratory Effort Normal Respiratory Depth Normal Respiratory Pattern Normal Blood Pressure 197/85 H 179/78 H Blood Pressure Mean 122 111 Pulse Ox 97 95 Oxygen Delivery Method Room Air Room Air Room Air Positive well nourished and well developed General Appearance ED: well developed and NAD HEENT Reports TM's clear and nasal mucous membranes and turbinates normal HEENT Narrative: Tender hematoma with overlying abrasion right parietal scalp without crepitance or depression, but hematoma is swollen enough that it does limit the palpation of the scalp underneath. No laceration. No licona sign or raccoon eyes. No CSF otorhinorrhea or hemotympanum. trauma Face and Sinus: Negative for facial tenderness Tympanic Membrane ED: Yes TM's clear Eyes PERRL and EOMs intact bilaterally Visual Acuity: other Other Details: no entrapment or pain with extraocular movements Neck full ROM and supple General: Negative for tenderness Chest Wall inspection of chest normal and palpation of chest normal Chest: symmetrical chest wall rise; Negative for crepitus or tenderness Back/Spine normal ROM Cervical Spine: Negative for cervical spine tenderness Thoracic Spine / Upper Back: Negative for thoracic spinal tenderness Lumbar Spine / Lower Back: Negative for lumbar spinal tenderness Extremity normal to inspection and full ROM General Extremety ED: Negative for tenderness Neuro oriented x3, CN's II-XII intact bilaterally, moves all extremities, no focal motor deficits and no sensory deficits noted Fidelina Coma Scale: document GCS findings Spontaneous Obeys Commands Oriented 15 Sensorium / Orientation: awake and alert Psych mental status grossly normal and thought process normal Skin Lesions: no lesions Rashes: no rashes MDM MDM MDM Narrative Medical decision making narrative: CT of the head was performed. The scalp hematoma is noted, there is no underlying skull fracture or intracranial hemorrhage. I reviewed the films. My interpretation of the CT agrees with that of the radiologist. Patient reassured, no sign of any other injury, her blood pressure was high when she arrived that is gradually coming down, advised to have this rechecked in the near future and to return for any other acute issues. She is comfortable with this plan. Radiography Diagnostic Testing: Clinical Impression(s) from Imaging Studies Brain CT 09/28/22 21:57 IMPRESSION: Hematoma in the scalp overlying the right frontal bone without associated skull fracture Mild atrophy and moderate white matter ischemic change. No acute intracranial hemorrhage Electronically Signed: Regino Joyce MD at 22:24 EST Reading Location ID and State: [facility] / [place] , Service support , Discharge Plan Triage Chief Complaint: Head Injury ED Provider: Tyler Melo Dx/Rx/DC Orders Clinical Impression: Closed head injury without loss of consciousness, Hematoma of right parietal scalp Instructions: ED Scalp Contusion Prescriptions: No Action NK Primary Care Provider: Dane Castro Referrals: Dane Castro MD [Primary Care Provider] - As Needed Disposition Disposition: Home, Self Care
[2022-09-28 22:24] VITALS: BP 179/78; PULSE 82; RESP 14; O2SAT 95
[2022-09-28] MEDS: Acetaminophen 325 MG Tablet 650 MG PO (22:54)
[2022-09-28 22:56] VITALS: BP 182/102; PULSE 90; RESP 15; O2SAT 98
== END 2022-09-28 22:56 | disposition home or self-care (01) ==
PROVIDERS: Emergency Provider Emergency Medicine; PCP Family Medicine; Visit Provider Emergency Medicine
DX: S00.03XA Contusion of scalp, initial encounter (principal); W18.30XA Fall on same level, unspecified, initial encounter
CPT/HCPCS: 70450; 99282

== ENCOUNTER → 2022-11-09 | Outpatient (CLI) | payer MEDICARE, SELFPAY ==
[2022-11-09 08:48] LABS: Bacteria 0 SEEN /hpf (None Seen); Mucous, Urine 0 SEEN /hpf (<or=2+); White Blood Cells 0 SEEN /hpf (0-5)
[2022-11-09 10:32] LABS: Absolute Lymphocyte Count 1.39 X10^3/uL (0.83-4.51); Basophil# 0.05 X10^3/uL; Hematocrit 36.2 % (37-47); Hemoglobin 11.6 g/dL (12.0-15.0); Lymphocyte # 1.39 X10^3/ul (0.83-4.51); Lymphocyte % 27.6 % (19-41); Mean Corpuscular Hgb 31.1 pg (27.0-32.0); Mean Corpuscular Volume 97.1 fL (81-99); Mean Platelet Vol. 10.6 fl (6.2-12.0); Monocyte# 0.46 X10^3/uL; Monocyte% 9.1 % (0-10); NRBC Flagged by Analyzer 0 % (0-5); Neutrophil # 3.01 X10^3/uL (2.7-7.7); Neutrophil % 59.9 % (47-70); Platelet Count 214 K/mm3 (150-450); RBC Distribution Width SD 49.8 fl (35.1-43.9); Red Blood Count 3.73 M/mm3 (4.2-5.4)
[2022-11-09 10:35] LABS: Color, Urine Yellow (Yellow); Glucose, Dipstick Normal (Normal); Ketone-Dipstick Negative (Negative); Leukocyte Esterase-Dipstick Negative /ul (Negative); Nitrite-Dipstick Negative (Negative); Occult Blood-Urine 25 /ul (Negative); Protein-Dipstick Negative (Negative); Urine Bilirubin Dipstick Negative (Negative); Urine Clarity Clear (Clear); Urine Urobilinogen Normal (Normal)
[2022-11-09 10:51] LABS: Vitamin D,25 Hydroxy 16.2 ng/mL
[2022-11-09 10:52] LABS: AST(SGOT) 13 U/L (15-37); Alanine Aminotransfer ALT/SGPT 16 U/L (13-56); Albumin, Serum 3.5 g/dL (3.2-5.0); Alkaline Phosphatase 61 U/L (45-117); Anion Gap 7 (5-15); BUN 19 mg/dL (7-18); BUN/Creat Ratio 21.6 RATIO (10-20); Calcium,Total 9.2 mg/dL (8.5-10.1); Chloride 109 mmol/L (98-107); Cholesterol 210 mg/dL (200); Creatinine, Serum 0.88 mg/dL (0.55-1.02); EST Glomerular Filtration Rate 66 mL/min (>60); Est Glom Filt Rate - Afr Amer 80 mL/min (>60); Globulin 3.6 g/dL (2.2-4.2); Glucose 91 mg/dL (74-106); High Density Lipoprotein 73 mg/dL; Phosphorus 3.3 mg/dL (2.5-4.9); Potassium 4.2 mmol/L (3.5-5.1); Protein, Total 7.1 g/dL (6.4-8.2); Sodium Level 143 mmol/L (136-145); Triglycerides 57 mg/dL; Very Low Density Lipoprotein 11 mg/dL (5-40)
[2022-11-09 10:53] LABS: Red Blood Cells-Urine 0-5 SEEN /hpf (0-5); Squamous Epithelial Cells - UA 0-5 SEEN /hpf (5-10)
[2022-11-09 10:55] LABS: PTHIN 73.3 pg/mL (18.4-80.1)
[2022-11-09 11:24] LABS: Protein, Urine (Random) 7.4 mg/dL (<11.9); Protein:Creat Ratio 88 mg/g CRE (0-200)
[2022-11-10 17:43] LABS: Ferritin 57 ng/mL (8-252); Iron 62 ug/dL (50-170); Iron Binding Capacity,Total 291 ug/dL (250-450); PERCENT IRON SATURATION 21.3 % (15.0-55.0)
[2022-11-13 10:05] LABS: Vitamin B12 337 pg/mL (211-911)
== END | disposition home or self-care (01) ==
PROVIDERS: PCP Family Medicine; Referring Provider Family Medicine; Visit Provider Family Medicine
DX: D64.9 Anemia, unspecified (principal); N18.30 Chronic kidney disease, stage 3 unspecified; E78.5 Hyperlipidemia, unspecified
CPT/HCPCS: 36415; 80053; 80061; 81001; 82306; 82570; 82607; 82728; 83540; 83550; 83970; 84100; 84156; 85025

== ENCOUNTER → 2023-03-16 | Outpatient (CLI) | payer MEDICARE, SELFPAY ==
[2023-03-16 11:10] LABS: Ferritin 85 ng/mL (8-252); Iron 67 ug/dL (50-170); Iron Binding Capacity,Total 286 ug/dL (250-450)
[2023-03-16 11:15] LABS: Vitamin B12 300 pg/mL (211-911)
[2023-03-16 11:26] LABS: Cholesterol 216 mg/dL (200); High Density Lipoprotein 68 mg/dL; Triglycerides 67 mg/dL; Very Low Density Lipoprotein 13 mg/dL (5-40)
== END | disposition home or self-care (01) ==
LOC: MTLAB 08:40
PROVIDERS: PCP Family Medicine; Referring Provider Nurse Practitioner Family; Visit Provider Nurse Practitioner Family
DX: D64.9 Anemia, unspecified (principal); E55.9 Vitamin D deficiency, unspecified; E78.5 Hyperlipidemia, unspecified
CPT/HCPCS: 36415; 80061; 82306; 82607; 82728; 83540; 83550

== ENCOUNTER → 2023-07-11 | Outpatient (CLI) | payer MEDICARE, SELFPAY ==
[2023-07-11 13:03] LABS: Absolute Lymphocyte Count 1.16 X10^3/uL (0.83-4.51); Absolute Neutrophil Count 3.4 X10^3/uL (2.0-7.7); Basophil# 0.04 X10^3/uL; Basophil% 0.8 % (0-1); Eosinophil# 0.02 X10^3/uL; Eosinophils% 0.4 % (0-5); Hematocrit 36.2 % (37-47); Hemoglobin 11.4 g/dL (12.0-15.0); Lymphocyte # 1.16 X10^3/ul (0.83-4.51); Lymphocyte % 23.2 % (19-41); Mean Corp Hgb Conc 31.5 g/dL (32-36); Mean Corpuscular Volume 98.4 fL (81-99); Mean Platelet Vol. 11.2 fl (6.2-12.0); Monocyte# 0.36 X10^3/uL; Monocyte% 7.2 % (0-10); NRBC Flagged by Analyzer 0 % (0-5); Platelet Count 161 K/mm3 (150-450); RBC Distribution Width CV 13.2 % (11.6-14.6); RBC Distribution Width SD 47.1 fl (35.1-43.9); Red Blood Count 3.68 M/mm3 (4.2-5.4)
[2023-07-11 13:22] LABS: PTHIN 83.5 pg/mL (18.4-80.1)
[2023-07-11 13:23] LABS: Vitamin B12 368 pg/mL (211-911); Vitamin D,25 Hydroxy 36.8 ng/mL
[2023-07-11 13:56] LABS: ALB/GLOB Ratio 1.1 RATIO (0.9-2.4); AST(SGOT) 14 U/L (15-37); Alanine Aminotransfer ALT/SGPT 21 U/L (13-56); Albumin, Serum 3.6 g/dL (3.2-5.0); Alkaline Phosphatase 67 U/L (45-117); Anion Gap 6 (5-15); BUN 12 mg/dL (7-18); BUN/Creat Ratio 14.2 RATIO (10-20); Calcium,Total 9.3 mg/dL (8.5-10.1); Chloride 109 mmol/L (98-107); Cholesterol 155 mg/dL (200); Creatinine, Serum 0.84 mg/dL (0.55-1.02); EST Glomerular Filtration Rate 69 mL/min (>60); Est Glom Filt Rate - Afr Amer 83 mL/min (>60); Ferritin 78 ng/mL (8-252); Globulin 3.4 g/dL (2.2-4.2); Glucose 90 mg/dL (74-106); High Density Lipoprotein 73 mg/dL; Iron 59 ug/dL (50-170); Iron Binding Capacity,Total 316 ug/dL (250-450); Phosphorus 3.3 mg/dL (2.5-4.9); Potassium 4.2 mmol/L (3.5-5.1); Sodium Level 142 mmol/L (136-145); Triglycerides 57 mg/dL; Very Low Density Lipoprotein 11 mg/dL (5-40)
== END | disposition home or self-care (01) ==
LOC: MFPLAB 11:13
PROVIDERS: PCP Family Medicine; Visit Provider Family Medicine
DX: E55.9 Vitamin D deficiency, unspecified (principal); N18.30 Chronic kidney disease, stage 3 unspecified; D64.9 Anemia, unspecified; E78.5 Hyperlipidemia, unspecified
CPT/HCPCS: 36415; 80053; 80061; 82306; 82607; 82728; 82746; 83540; 83550; 83970; 84100; 85025

== ENCOUNTER → 2023-08-07 | Outpatient (CLI) | payer MEDICARE, SELFPAY ==
[2023-08-07 17:50] LABS: Absolute Lymphocyte Count 1.26 X10^3/uL (0.83-4.51); Basophil# 0.03 X10^3/uL; Basophil% 0.5 % (0-1); Eosinophil# 0.05 X10^3/uL; Eosinophils% 0.9 % (0-5); Hematocrit 36.1 % (37-47); Hemoglobin 11.7 g/dL (12.0-15.0); Lymphocyte # 1.26 X10^3/ul (0.83-4.51); Lymphocyte % 21.8 % (19-41); Mean Corp Hgb Conc 32.4 g/dL (32-36); Mean Corpuscular Hgb 31.7 pg (27.0-32.0); Mean Corpuscular Volume 97.8 fL (81-99); Mean Platelet Vol. 11.1 fl (6.2-12.0); Monocyte# 0.42 X10^3/uL; Monocyte% 7.3 % (0-10); NRBC Flagged by Analyzer 0 % (0-5); Neutrophil % 69.3 % (47-70); Platelet Count 165 K/mm3 (150-450); RBC Distribution Width CV 14.3 % (11.6-14.6); RBC Distribution Width SD 51.7 fl (35.1-43.9); Red Blood Count 3.69 M/mm3 (4.2-5.4); White Blood Count 5.8 K/mm3 (4.4-11.0)
[2023-08-07 18:22] LABS: ALB/GLOB Ratio 1.1 RATIO (0.9-2.4); AST(SGOT) 30 U/L (15-37); Alanine Aminotransfer ALT/SGPT 44 U/L (13-56); Albumin, Serum 3.5 g/dL (3.2-5.0); Alkaline Phosphatase 82 U/L (45-117); Anion Gap 6 (5-15); BUN 18 mg/dL (7-18); BUN/Creat Ratio 18.4 RATIO (10-20); Calcium,Total 8.5 mg/dL (8.5-10.1); Chloride 111 mmol/L (98-107); Creatinine, Serum 0.98 mg/dL (0.55-1.02); EST Glomerular Filtration Rate 58 mL/min (>60); Est Glom Filt Rate - Afr Amer 70 mL/min (>60); Globulin 3.3 g/dL (2.2-4.2); Glucose 84 mg/dL (74-106); Magnesium 2.3 mg/dL (1.6-2.6); Potassium 4.1 mmol/L (3.5-5.1); Protein, Total 6.8 g/dL (6.4-8.2); Sodium Level 144 mmol/L (136-145); Thyroid Stim Hormone (TSH) 1.35 uIU/mL (0.358-3.74)
== END | disposition home or self-care (01) ==
LOC: MFPLAB 16:50
PROVIDERS: PCP Family Medicine; Visit Provider Family Medicine
DX: I48.91 Unspecified atrial fibrillation (principal)
CPT/HCPCS: 36415; 80053; 83735; 84443; 85025

== ENCOUNTER → 2023-09-04 | Outpatient (CLI) | payer MEDICARE, SELFPAY ==
--- NOTE | 2023-09-04 08:32 | ECHOD_ITS ---
Reason For Study: AFIB Procedure This was a 2D Doppler, Color Flow transthoracic echocardiogram. Exam performed in department. Left Ventricle Normal LV size. Apical false tendon noted. The estimated ejection fraction is 40 %. No regional wall motion abnormalities noted. Right Ventricle Normal RV size. Normal systolic function. Atria Normal left atrium. Normal right atrium. Mitral Valve Bileaflet diffuse mitral valve thickening. Mild (1+) mitral valve insufficiency. Tricuspid Valve Normal tricuspid valve. Mild tricuspid valve insufficiency. Pulmonary artery systolic pressure is 30 mmHg. Aortic Valve Trisinus/trileaflet aortic valve. Mild (1+) aortic valve insufficiency. Pulmonic Valve Normal pulmonic valve. Great Vessels Normal aortic root. The pulmonary artery is normal size. Normal inferior vena cava. Pericardium/Pleural Moderate pericardial effusion. There are no echocardiographic indications of cardiac tamponade. MMode/2D Measurements & Calculations LVIDd: 4.7 cm IVSd: 1.2 cm Ao root diam: 3.2 cm LVIDs: 3.5 cm LVPWd: 1.0 cm LA dimension: 3.9 cm RVDd: 3.4 cm FS: 26.0 % LAV(MOD-bp): 67.3 ml LA A4 area: 21.7 cm2 RA A4 area: 15.2 cm2 LAV(MOD-bp) Indexed: 40.2 ml/m2 LAV(MOD-sp2): 63.6 ml LAV(MOD-sp4): 56.6 ml Doppler Measurements & Calculations MV E max dali: 89.4 cm/sec MV V2 max: 94.9 cm/sec Ao V2 max: 100.5 cm/sec MV max P.6 mmHg Ao max P.0 mmHg MV V2 mean: 58.8 cm/sec Ao V2 mean: 67.3 cm/sec MV mean P.7 mmHg Ao mean P.1 mmHg MV V2 VTI: 17.2 cm Ao V2 VTI: 17.6 cm AV (velocity ratio): 0.68 AI max dali: 428.5 cm/sec LV V1 max: 76.1 cm/sec MR max dali: 522.4 cm/sec AI max P.4 mmHg LV V1 max P.3 mmHg MR max P.2 mmHg LV V1 mean P.1 mmHg MR mean dali: 379.5 cm/sec AI dec slope: 242.2 cm/sec2 LV V1 mean: 48.9 cm/sec MR mean P.4 mmHg AI P1/2t: 518.3 msec LV V1 VTI: 12.1 cm MR VTI: 158.1 cm PA V2 max: 72.6 cm/sec TR max dali: 251.5 cm/sec TR max P.3 mmHg ECHO/Echo Complete Interpretation Summary Normal LV size. The estimated ejection fraction is 40 %. Mild (1+) mitral valve insufficiency. Normal tricuspid valve. Mild (1+) aortic valve insufficiency. Apical false tendon noted. Moderate pericardial effusion. There are no echocardiographic indications of cardiac tamponade. Ordering Physician: Lucho Crowley Referring Physician: Dane Castro Performed By: Iain Vega RCS
== END | disposition home or self-care (01) ==
PROVIDERS: PCP Family Medicine; Referring Provider Family Medicine; Visit Provider Family Medicine
DX: I48.11 Longstanding persistent atrial fibrillation (principal)
CPT/HCPCS: 93306

== ENCOUNTER → 2023-09-11 | Outpatient (CLI) | payer MEDICARE, SELFPAY ==
[2023-09-11 12:33] LABS: Anion Gap 3 (5-15); BUN 19 mg/dL (7-18); BUN/Creat Ratio 16.8 RATIO (10-20); Calcium,Total 8.6 mg/dL (8.5-10.1); Chloride 108 mmol/L (98-107); Creatinine, Serum 1.13 mg/dL (0.55-1.02); EST Glomerular Filtration Rate 49 mL/min (>60); Est Glom Filt Rate - Afr Amer 60 mL/min (>60); Glucose 87 mg/dL (74-106); Potassium 3.8 mmol/L (3.5-5.1); Sodium Level 142 mmol/L (136-145)
== END | disposition home or self-care (01) ==
LOC: MFPLAB 11:01
PROVIDERS: Nurse Practitioner Family; PCP Family Medicine; Visit Provider Family Medicine
DX: I48.91 Unspecified atrial fibrillation (principal)
CPT/HCPCS: 36415; 80048

== ENCOUNTER → 2023-09-11 | Outpatient (CLI) | payer MEDICARE, SELFPAY ==
--- NOTE | 2023-09-11 13:35 | BD_ITS ---
STUDY: DUAL ENERGY X-RAY ABSORPTIOMETRY / DXA REASON FOR EXAM: Female, 78 years old. 627.8Menopausal postmenopausal BONE DENSITY REASON FOR EXAM TECHNIQUE: Bone Mineral Density (BMD) measurements of lumbar spine and bilateral hips were obtained. COMPARISON: Comparison is made with prior study dated October 24, 2018. FINDINGS: Lumbar Spine (L1-L4): g/cm2 (1.245) / T-score (1.8) / Z-score (4.5) Findings are suggestive of normal bone density with a low fracture risk. Left Femur Total: g/cm2 (0.977) / T-score (0.3) / Z-score (2.4) Left Femoral Neck: g/cm2 (0.824) / T-score (-0.2) / Z-score (2.1) Right Femur Total: g/cm2 (0.933) / T-score (-0.1) / Z-score (2.0) Right Femoral Neck: g/cm2 (0.820) / T-score (-0.3) / Z-score (2.1) The T-Scores on the most recent prior examination were: Lumbar Spine (L1-L4): There has been improvement of bone density since the previous examination. Left Femur Total: which represents a worsening of 14.2%. Right Femur Total: which represents a worsening of 9.4%. BD/Dexa Bone Density Study IMPRESSION: The patient is considered normal as outlined below according to World Vasu Organization (WHO) criteria with a low fracture risk. There has been worsening of bone density since the previous examination. Reference Information: The T-score is the number of standard deviations above or below the standard which is normal for young adults at their peak bone mineral density. The World Health Organization (WHO) interprets the T-scores as follows: Above -1 Normal bone density Between -1 and -2.5 Osteopenia Equal to / or below -2.5 Osteoporosis As a practical clinical guideline, osteopenia may be graded as follows: Mild -1 through -1.5 Moderate -1.6 through -2.0 Severe -2.1 through -2.4 The Z-score is the number of standard deviations above or below age-matched controls. A Z-score of less than -1.5 would be considered abnormal. References: 1. NIH Osteoporosis and Related Bone Diseases www osteo.org 2. International Society for Clinical Densitometry www iscd.org 3. National Osteoporosis Foundation www nof.org Electronically Signed: Pedro Sorto MD at 14:36 EST ,
== END | disposition home or self-care (01) ==
LOC: OPBD 13:34
PROVIDERS: PCP Family Medicine; Referring Provider Family Medicine; Visit Provider Family Medicine
DX: Z78.0 Asymptomatic menopausal state (principal)
CPT/HCPCS: 77080

== ENCOUNTER → 2023-09-19 | Outpatient (CLI) | payer MEDICARE, SELFPAY ==
[2023-09-19 08:15] LABS: Anion Gap 4 (5-15); BUN 24 mg/dL (7-18); BUN/Creat Ratio 18.2 RATIO (10-20); Calcium,Total 9.8 mg/dL (8.5-10.1); Chloride 105 mmol/L (98-107); Creatinine, Serum 1.32 mg/dL (0.55-1.02); EST Glomerular Filtration Rate 41 mL/min (>60); Est Glom Filt Rate - Afr Amer 50 mL/min (>60); Glucose 100 mg/dL (74-106); Potassium 3.9 mmol/L (3.5-5.1); Sodium Level 139 mmol/L (136-145)
== END | disposition home or self-care (01) ==
PROVIDERS: PCP Family Medicine; Referring Provider Physician Assistant Medical; Visit Provider Physician Assistant Medical
DX: I48.19 Other persistent atrial fibrillation (principal); I42.9 Cardiomyopathy, unspecified; I31.39 Other pericardial effusion (noninflammatory)
CPT/HCPCS: 36415; 80048

== ENCOUNTER → 2023-10-04 | Outpatient (CLI) | payer MEDICARE, SELFPAY | END | disposition home or self-care (01) | LOC: CVS 13:17 | PROVIDERS: PCP Family Medicine; Referring Provider Nurse Practitioner Family; Visit Provider Nurse Practitioner Family | DX: R03.0 Elevated blood-pressure reading, without diagnosis of hypertension (principal) | CPT/HCPCS: 93788 ==

== ENCOUNTER → 2023-10-31 | Outpatient (CLI) | payer MEDICARE, SELFPAY ==
[2023-10-31 14:36] LABS: Absolute Lymphocyte Count 1.37 X10^3/uL (0.83-4.51); Absolute Neutrophil Count 3.6 X10^3/uL (2.0-7.7); Basophil# 0.05 X10^3/uL; Basophil% 0.9 % (0-1); Eosinophil# 0.09 X10^3/uL; Eosinophils% 1.6 % (0-5); Hematocrit 36.7 % (37-47); Hemoglobin 11.9 g/dL (12.0-15.0); Lymphocyte # 1.37 X10^3/ul (0.83-4.51); Lymphocyte % 24.2 % (19-41); Mean Corp Hgb Conc 32.4 g/dL (32-36); Mean Corpuscular Hgb 30.1 pg (27.0-32.0); Mean Corpuscular Volume 92.9 fL (81-99); Mean Platelet Vol. 11.3 fl (6.2-12.0); Monocyte# 0.53 X10^3/uL; Monocyte% 9.4 % (0-10); NRBC Flagged by Analyzer 0 % (0-5); Neutrophil # 3.61 X10^3/uL (2.7-7.7); Neutrophil % 63.7 % (47-70); Platelet Count 153 K/mm3 (150-450); RBC Distribution Width CV 14.1 % (11.6-14.6); RBC Distribution Width SD 48.4 fl (35.1-43.9); Red Blood Count 3.95 M/mm3 (4.2-5.4); White Blood Count 5.7 K/mm3 (4.4-11.0)
[2023-10-31 15:14] LABS: Anion Gap 3 (5-15); BUN 24 mg/dL (7-18); BUN/Creat Ratio 20.3 RATIO (10-20); Chloride 110 mmol/L (98-107); Creatinine, Serum 1.18 mg/dL (0.55-1.02); EST Glomerular Filtration Rate 47 mL/min (>60); Est Glom Filt Rate - Afr Amer 57 mL/min (>60); Glucose 90 mg/dL (74-106); Potassium 3.9 mmol/L (3.5-5.1); Sodium Level 142 mmol/L (136-145)
== END | disposition home or self-care (01) ==
LOC: LAB 14:01
PROVIDERS: PCP Family Medicine; Referring Provider Physician Assistant Medical; Visit Provider Physician Assistant Medical
DX: I48.11 Longstanding persistent atrial fibrillation (principal); I42.9 Cardiomyopathy, unspecified; I31.39 Other pericardial effusion (noninflammatory)
CPT/HCPCS: 36415; 80048; 85025

== ENCOUNTER → 2023-12-12 | Outpatient (CLI) | payer MEDICARE, SELFPAY ==
[2023-12-12 14:54] LABS: Basophil# 0.03 X10^3/uL; Basophil% 0.5 % (0-1); Eosinophil# 0.07 X10^3/uL; Eosinophils% 1.1 % (0-5); Hematocrit 36.3 % (37-47); Hemoglobin 11.6 g/dL (12.0-15.0); Lymphocyte % 25.6 % (19-41); Mean Corpuscular Hgb 29.8 pg (27.0-32.0); Mean Corpuscular Volume 93.3 fL (81-99); NRBC Flagged by Analyzer 0 % (0-5); Neutrophil # 4.02 X10^3/uL (2.7-7.7); Neutrophil % 64.5 % (47-70); Platelet Count 198 K/mm3 (150-450); RBC Distribution Width CV 14.6 % (11.6-14.6); RBC Distribution Width SD 49.5 fl (35.1-43.9); Red Blood Count 3.89 M/mm3 (4.2-5.4); White Blood Count 6.2 K/mm3 (4.4-11.0)
[2023-12-12 15:26] LABS: PTHIN 171.3 pg/mL (18.4-80.1)
[2023-12-12 15:29] LABS: Protein, Urine (Random) < 6.0 mg/dL (<11.9)
[2023-12-12 15:31] LABS: Vitamin B12 584 pg/mL (211-911)
[2023-12-12 15:41] LABS: AST(SGOT) 24 U/L (15-37); Alanine Aminotransfer ALT/SGPT 26 U/L (13-56); Albumin, Serum 3.4 g/dL (3.2-5.0); Alkaline Phosphatase 69 U/L (45-117); Anion Gap 4 (5-15); BUN 16 mg/dL (7-18); BUN/Creat Ratio 15.1 RATIO (10-20); Calcium,Total 8.7 mg/dL (8.5-10.1); Chloride 111 mmol/L (98-107); Cholesterol 130 mg/dL (200); Creatinine, Serum 1.06 mg/dL (0.55-1.02); EST Glomerular Filtration Rate 53 mL/min (>60); Est Glom Filt Rate - Afr Amer 64 mL/min (>60); Ferritin 85 ng/mL (8-252); Globulin 3.4 g/dL (2.2-4.2); Glucose 80 mg/dL (74-106); High Density Lipoprotein 59 mg/dL; Iron 80 ug/dL (50-170); Iron Binding Capacity,Total 339 ug/dL (250-450); Magnesium 2.1 mg/dL (1.6-2.6); Phosphorus 3.5 mg/dL (2.5-4.9); Potassium 3.6 mmol/L (3.5-5.1); Protein, Total 6.8 g/dL (6.4-8.2); Sodium Level 145 mmol/L (136-145); Triglycerides 73 mg/dL; Very Low Density Lipoprotein 15 mg/dL (5-40)
== END | disposition home or self-care (01) ==
LOC: MFPLAB 13:51
PROVIDERS: PCP Family Medicine; Visit Provider Family Medicine
DX: D64.9 Anemia, unspecified (principal); I48.91 Unspecified atrial fibrillation; N18.30 Chronic kidney disease, stage 3 unspecified; R60.0 Localized edema
CPT/HCPCS: 36415; 80053; 80061; 82570; 82607; 82728; 82746; 83540; 83550; 83735; 83970; 84100; 84156; 85025

== ENCOUNTER → 2023-12-27 | Outpatient (CLI) | payer MEDICARE, SELFPAY ==
[2023-12-27 15:27] LABS: Absolute Lymphocyte Count 1.24 X10^3/uL (0.83-4.51); Basophil# 0.05 X10^3/uL; Basophil% 0.9 % (0-1); Eosinophil# 0.04 X10^3/uL; Eosinophils% 0.7 % (0-5); Hematocrit 37.4 % (37-47); Hemoglobin 11.9 g/dL (12.0-15.0); Lymphocyte # 1.24 X10^3/ul (0.83-4.51); Lymphocyte % 21.4 % (19-41); Mean Corp Hgb Conc 31.8 g/dL (32-36); Mean Corpuscular Hgb 30.2 pg (27.0-32.0); Mean Corpuscular Volume 94.9 fL (81-99); Monocyte# 0.43 X10^3/uL; Monocyte% 7.4 % (0-10); NRBC Flagged by Analyzer 0 % (0-5); Neutrophil # 4.03 X10^3/uL (2.7-7.7); Neutrophil % 69.4 % (47-70); Platelet Count 193 K/mm3 (150-450); RBC Distribution Width SD 52.7 fl (35.1-43.9); Red Blood Count 3.94 M/mm3 (4.2-5.4); White Blood Count 5.8 K/mm3 (4.4-11.0)
[2023-12-27 16:25] LABS: AST(SGOT) 23 U/L (15-37); Alanine Aminotransfer ALT/SGPT 24 U/L (13-56); Albumin, Serum 3.7 g/dL (3.2-5.0); Alkaline Phosphatase 78 U/L (45-117); Anion Gap 4 (5-15); BUN 21 mg/dL (7-18); BUN/Creat Ratio 18.9 RATIO (10-20); Calcium,Total 8.9 mg/dL (8.5-10.1); Chloride 107 mmol/L (98-107); Creatinine, Serum 1.11 mg/dL (0.55-1.02); EST Glomerular Filtration Rate 50 mL/min (>60); Est Glom Filt Rate - Afr Amer 61 mL/min (>60); Globulin 3.6 g/dL (2.2-4.2); Glucose 91 mg/dL (74-106); Magnesium 2.1 mg/dL (1.6-2.6); Potassium 3.6 mmol/L (3.5-5.1); Protein, Total 7.3 g/dL (6.4-8.2); Sodium Level 141 mmol/L (136-145)
[2023-12-27 16:50] LABS: Digoxin Level 0.41 ng/mL (0.80-2.00)
== END | disposition home or self-care (01) ==
LOC: MFPLAB 14:15
PROVIDERS: PCP Family Medicine; Visit Provider Family Medicine
DX: I48.91 Unspecified atrial fibrillation (principal)
CPT/HCPCS: 36415; 80053; 80162; 83735; 85025

== ENCOUNTER → 2024-01-11 | Outpatient (CLI) | payer MEDICARE, SELFPAY | END | disposition home or self-care (01) | LOC: PSN 11:53 | PROVIDERS: PCP Family Medicine; Referring Provider Physician Assistant Medical; Visit Provider Physician Assistant Medical | DX: I48.11 Longstanding persistent atrial fibrillation (principal) | CPT/HCPCS: 93225; 93226 ==

== ENCOUNTER → 2024-01-25 | Outpatient (CLI) | payer MEDICARE, SELFPAY ==
--- NOTE | 2024-01-25 11:32 | STRESSREP_ITS ---
Stress Test Report Date: 01/25/2024 Procedure: Pharmacologic stress nuclear imaging study Indications: Dyspnea Consent: Per the patient Procedure: The patient underwent pharmacologic (Regadenoson 0.4mg ) evaluation with a peak heart rate of 151 beats per minute (107%predicted maximal heart rate) and a peak blood pressure of 162/82 mmHg. The baseline ECG demonstrated atrial fibrillation with incomplete right bundle branch block. The peak pharmacologic ECG demonstrated no ischemic changes . Baseline atrial fibrillation.. There was no complaint of chest discomfort during pharmacologic infusion or recovery. The patient was injected with 11.2 millicuries of technetium 99m Cardiolite and subsequently rest SPECT Cardiolite nuclear imaging was obtained in the horizontal long, vertical long, and short axis views. The patient underwent pharmacologic (Regadenoson) evaluation. The patient was injected with 35.0 millicuries of technetium 99m Cardiolite and subsequently stress SPECT Cardiolite nuclear imaging was obtained in the horizontal long, vertical long, and short axis views. A gated Cardiolite study at peak stress was obtained. The examination was stopped secondary to completion of protocol. Rest and stress SPECT Cardiolite nuclear imaging status post realignment, normalization, and attenuation correction demonstrate no fixed or reversible perfusion defects. There is end systolic thickening and brightening. The gated Cardiolite study demonstrates myocardial thickening and inward wall motion. The reported LVEF is 50 to %. Impression: 1. Pharmacologic (Regadenoson) evaluation 2. Peak pharmacologic ECG with no ischemic changes. 3. Baseline atrial fibrillation.. 5. Rest and stress SPECT Cardiolite nuclear imaging demonstrate relative uniform tracer uptake and myocardial perfusion appearing within normal limits. 6. The gated Cardiolite study reports an LVEF of 50 to %. This note was generated with Expert Medical Navigationation software. It may contain incorrect words, spelling, and punctuation that were not noted in checking the note before signing.
== END | disposition home or self-care (01) ==
LOC: CVS 06:04
PROVIDERS: PCP Family Medicine; Referring Provider Family Medicine; Visit Provider Family Medicine
DX: R06.02 Shortness of breath (principal)
CPT/HCPCS: 78452; 93017; A9500; A4216; J2785

== ENCOUNTER → 2024-01-30 | Outpatient (CLI) | payer MEDICARE, SELFPAY | END | disposition home or self-care (01) | LOC: MTLAB 16:34 | PROVIDERS: PCP Family Medicine; Referring Provider Family Medicine; Visit Provider Family Medicine | DX: I48.91 Unspecified atrial fibrillation (principal) | CPT/HCPCS: 36415; 80162 ==

== ENCOUNTER → 2024-03-13 | Outpatient (CLI) | payer MEDICARE, SELFPAY ==
[2024-03-13 10:54] LABS: Bacteria 0 SEEN /hpf (None Seen); Mucous, Urine 0 SEEN /hpf (<or=2+)
[2024-03-13 12:15] LABS: Color, Urine Yellow (Yellow); Glucose, Dipstick Normal (Normal); Ketone-Dipstick Negative (Negative); Leukocyte Esterase-Dipstick 25 /ul (Negative); Nitrite-Dipstick Negative (Negative); Occult Blood-Urine 10 /ul (Negative); Protein-Dipstick Negative (Negative); Urine Bilirubin Dipstick Negative (Negative); Urine Clarity Clear (Clear); Urine Urobilinogen Normal (Normal)
[2024-03-13 12:37] LABS: Red Blood Cells-Urine 0-5 SEEN /hpf (0-5); Squamous Epithelial Cells - UA 0-5 SEEN /hpf (5-10); White Blood Cells 0-5 SEEN /hpf (0-5)
[2024-03-13 13:11] LABS: Protein, Urine (Random) < 6.0 mg/dL (<11.9)
[2024-03-13 15:06] LABS: Absolute Neutrophil Count 3.7 X10^3/uL (2.0-7.7); Basophil# 0.05 X10^3/uL; Basophil% 0.9 % (0-1); Eosinophil# 0.11 X10^3/uL; Hematocrit 35.9 % (37-47); Hemoglobin 11.7 g/dL (12.0-15.0); Lymphocyte % 23.6 % (19-41); Mean Corp Hgb Conc 32.6 g/dL (32-36); Mean Corpuscular Hgb 31.4 pg (27.0-32.0); Mean Corpuscular Volume 96.2 fL (81-99); Mean Platelet Vol. 11.4 fl (6.2-12.0); Monocyte# 0.39 X10^3/uL; Monocyte% 7.1 % (0-10); NRBC Flagged by Analyzer 0 % (0-5); Neutrophil # 3.66 X10^3/uL (2.7-7.7); Neutrophil % 66.2 % (47-70); Platelet Count 178 K/mm3 (150-450); RBC Distribution Width CV 14.6 % (11.6-14.6); RBC Distribution Width SD 51.3 fl (35.1-43.9); Red Blood Count 3.73 M/mm3 (4.2-5.4); White Blood Count 5.5 K/mm3 (4.4-11.0)
[2024-03-13 15:20] LABS: PTHIN 120.1 pg/mL (18.4-80.1)
[2024-03-13 15:22] LABS: Vitamin B12 259 pg/mL (211-911)
[2024-03-13 15:40] LABS: ALB/GLOB Ratio 0.8 RATIO (0.9-2.4); AST(SGOT) 21 U/L (15-37); Alanine Aminotransfer ALT/SGPT 18 U/L (13-56); Albumin, Serum 3.3 g/dL (3.2-5.0); Alkaline Phosphatase 78 U/L (45-117); Anion Gap 6 (5-15); BUN 19 mg/dL (7-18); Calcium,Total 9.1 mg/dL (8.5-10.1); Chloride 105 mmol/L (98-107); Cholesterol 159 mg/dL (200); Creatinine, Serum 1.12 mg/dL (0.55-1.02); EST Glomerular Filtration Rate 50 mL/min (>60); Est Glom Filt Rate - Afr Amer 60 mL/min (>60); Ferritin 130 ng/mL (8-252); Glucose 92 mg/dL (74-106); High Density Lipoprotein 63 mg/dL; Iron 97 ug/dL (50-170); Iron Binding Capacity,Total 298 ug/dL (250-450); Magnesium 2.2 mg/dL (1.6-2.6); Phosphorus 2.8 mg/dL (2.5-4.9); Potassium 3.9 mmol/L (3.5-5.1); Protein, Total 7.3 g/dL (6.4-8.2); Sodium Level 140 mmol/L (136-145); Triglycerides 74 mg/dL; Very Low Density Lipoprotein 15 mg/dL (5-40)
== END | disposition home or self-care (01) ==
LOC: MTLAB 10:50
PROVIDERS: PCP Family Medicine; Referring Provider Family Medicine; Visit Provider Family Medicine
DX: I48.91 Unspecified atrial fibrillation (principal); N18.30 Chronic kidney disease, stage 3 unspecified; D64.9 Anemia, unspecified; E55.9 Vitamin D deficiency, unspecified
CPT/HCPCS: 80053; 80061; 81001; 82306; 82570; 82607; 82728; 82746; 83540; 83550; 83735; 83970; 84100; 84156; 85025

== ENCOUNTER → 2025-03-18 | Outpatient (CLI) | payer MEDICARE, SELFPAY ==
--- NOTE | 2025-03-18 16:05 | CT_ITS ---
PROCEDURE: CTA CHEST W/WO CONTRAST 03/18/2025 REASON FOR EXAM: KNOWN TAA TECHNIQUE: CTA CHEST W/WO CONTRAST Multiplanar Sagittal and Coronal images were obtained. CONTRAST: Isovue 370 VOLUME: 75 mL One or more dose reduction techniques were used (e.g., Automated exposure control, adjustment of the mA and/or kV according to patient size, use of iterative reconstruction technique). RADIATION DOSE SUMMARY: CTDlvol: 14 mGy DLP: 193 mGycm COMPARISON: No FINDINGS: Unremarkable base of neck and axilla. Thoracic spine scoliosis and degeneration. Normal esophagus. Cardiac enlargement. Small pericardial effusion. No central pulmonary embolism. Dilated ascending aorta, measuring 5.1 x 5.3 cm maximum cross-section. Proximal arch measures up to 5 cm. Distal arch measures up to 3.6 cm. The descending thoracic aorta is nondilated. At the thoracoabdominal junction, aorta measures 2.8 x 3.2 cm, borderline prominent. No significant calcified plaque. No dissection. No acute chest wall findings. No acute upper abdominal findings. Central airways are patent. Basilar atelectasis. No consolidation, effusion, or pneumothorax. CT/CTA Chest W/WO Contrast IMPRESSION: Ascending aortic aneurysm, measuring 5.1 x 5.3 cm maximum cross-section. No di ssection. No acute chest findings. Reading Location: [place] [address]
--- NOTE | 2025-03-18 16:05 | CT_ITS ---
PROCEDURE: CTA CHEST W/WO CONTRAST 03/18/2025 REASON FOR EXAM: KNOWN TAA TECHNIQUE: CTA CHEST W/WO CONTRAST Multiplanar Sagittal and Coronal images were obtained. CONTRAST: Isovue 370 VOLUME: 75 mL One or more dose reduction techniques were used (e.g., Automated exposure control, adjustment of the mA and/or kV according to patient size, use of iterative reconstruction technique). RADIATION DOSE SUMMARY: CTDlvol: 14 mGy DLP: 193 mGycm COMPARISON: No FINDINGS: Unremarkable base of neck and axilla. Thoracic spine scoliosis and degeneration. Normal esophagus. Cardiac enlargement. Small pericardial effusion. No central pulmonary embolism. Dilated ascending aorta, measuring 5.1 x 5.3 cm maximum cross-section. Proximal arch measures up to 5 cm. Distal arch measures up to 3.6 cm. The descending thoracic aorta is nondilated. At the thoracoabdominal junction, aorta measures 2.8 x 3.2 cm, borderline prominent. No significant calcified plaque. No dissection. No acute chest wall findings. No acute upper abdominal findings. Central airways are patent. Basilar atelectasis. No consolidation, effusion, or pneumothorax. CT/CTA Chest W/WO Contrast IMPRESSION: Ascending aortic aneurysm, measuring 5.1 x 5.3 cm maximum cross-section. No di ssection. No acute chest findings. Reading Location: [place] [id number]
== END | disposition home or self-care (01) ==
LOC: CT 16:00
PROVIDERS: PCP Family Medicine; Referring Provider Physician Assistant Medical; Visit Provider Physician Assistant Medical
DX: I71.20 Thoracic aortic aneurysm, without rupture, unspecified (principal)
CPT/HCPCS: 71275; Q9967

== ENCOUNTER → 2025-04-02 | Outpatient (CLI) | payer MEDICARE, SELFPAY ==
--- NOTE | 2025-04-02 12:23 | ECHOD_ITS ---
Reason For Study : CHF Procedure This was a 2D Doppler, Color Flow transthoracic echocardiogram. Exam performed in department. Left Ventricle Normal LV size. Mild concentric left ventricular hypertrophy. Left ventricular systolic function is normal. The left ventricular ejection fraction is 55 %. No regional wall motion abnormalities noted. Right Ventricle Normal RV size. Normal systolic function. Atria Normal left atrium. Normal right atrium. Mitral Valve Normal mitral valve. Mild (1+) eccentric mitral valve insufficiency. Tricuspid Valve Normal tricuspid valve. Mild tricuspid valve insufficiency. Pulmonary artery systolic pressure is 20 mmHg. Aortic Valve Trisinus/trileaflet aortic valve. Mild (1+) aortic valve insufficiency. Pulmonic Valve Normal pulmonic valve. Great Vessels Moderately dilated aortic root. The pulmonary artery is normal size. Inferior vena cava collapse with respiration. Pericardium/Pleural Small (<1.0 cm) pericardial effusion. MMode/2D Measurements & Calculations LVIDd: 4.2 cm IVSd: 1.2 cm Ao root diam: 5.3 cm LVIDs: 2.8 cm LVPWd: 1.4 cm RVDd: 3.5 cm FS: 33.5 % asc Aorta Diam: 4.6 cm LAV(MOD-bp): 57.7 ml LVAd ap4: 23.4 cm2 LAV(MOD-bp) Indexed: 36.6 ml/m2 LVLd ap4: 5.9 cm LAV(MOD-sp2): 55.3 ml EDV(MOD-sp4): 75.3 ml LAV(MOD-sp4): 54.9 ml EDV(sp4-el): 78.3 ml LVAs ap4: 14.1 cm2 LVLs ap4: 5.4 cm ESV(MOD-sp4): 31.1 ml ESV(sp4-el): 31.6 ml EF(MOD-sp4): 58.8 % EF(sp4-el): 59.7 % SV(MOD-sp4): 44.3 ml SV(sp4-el): 46.7 ml Ao sinus diam: 3.2 cm SI(MOD-sp4): 28.0 ml/m2 Ao ST Junction: 2.8 cm LA A4 area: 19.3 cm2 LA dimension(2D): 3.9 cm RA A4 area: 16.0 cm2 Doppler Measurements & Calculations MV E max dali: 63.7 cm/sec MV V2 max: 84.7 cm/sec MV P1/2t max dali: 83.8 cm/sec MV max P.9 mmHg MV P1/2t: 62.8 msec MV V2 mean: 46.9 cm/sec MV dec slope: 391.0 cm/sec2 MV mean P.1 mmHg MV V2 VTI: 15.1 cm MVA(P1/2t): 3.5 cm2 Ao V2 max: 111.4 cm/sec AI max dali: 449.9 cm/sec LV V1 max: 83.7 cm/sec Ao max P.0 mmHg AI max P.0 mmHg LV V1 max P.8 mmHg Ao V2 mean: 81.2 cm/sec AI dec slope: 268.5 cm/sec2 LV V1 mean P.5 mmHg Ao mean P.9 mmHg AI P1/2t: 490.7 msec LV V1 mean: 57.4 cm/sec Ao V2 VTI: 21.9 cm LV V1 VTI: 16.1 cm AV (velocity ratio): 0.74 MR max dali: 571.2 cm/sec PA V2 max: 64.8 cm/sec TR max dali: 211.7 cm/sec MR max P.5 mmHg TR max P.9 mmHg MR mean dali: 427.6 cm/sec MR mean P.0 mmHg MR VTI: 185.6 cm ECHO/Echo Complete Interpretation Summary Normal LV size. Left ventricular systolic function is normal. The left ventricular ejection fraction is 55 %. Small (<1.0 cm) pericardial effusion. Mild (1+) eccentric mitral valve insufficiency. Moderately dilated aortic root.Measures approximately 5.3 cm in the widest dime nsion. Mild concentric left ventricular hypertrophy. Ordering Physician: Matilde Correia Referring Physician: Matilde Correia Performed By: Iain Vega RCS
== END | disposition home or self-care (01) ==
LOC: CVS 12:18
PROVIDERS: PCP Family Medicine; Referring Provider Physician Assistant Medical; Visit Provider Physician Assistant Medical
DX: I51.9 Heart disease, unspecified (principal)
CPT/HCPCS: 93306

== ENCOUNTER → 2025-06-09 | Outpatient (CLI) | payer MEDICARE, SELFPAY ==
[2025-06-09 18:48] LABS: Hematocrit 38.3 % (37-47); Hemoglobin 12.7 g/dL (12.0-15.0); Immature Granulocytes Count 0.020 X10^3/uL (0.0-0.0); Mean Corp Hgb Conc 33.2 g/dL (32-36); Mean Corpuscular Volume 95.3 fL (81-99); Mean Platelet Vol. 10.9 fl (6.2-12.0); NRBC Flagged by Analyzer 0 % (0-5); Platelet Count 202 K/mm3 (150-450); RBC Distribution Width CV 12.9 % (11.6-14.6); RBC Distribution Width SD 45.2 fl (35.1-43.9); Red Blood Count 4.02 M/mm3 (4.2-5.4); White Blood Count 6.2 K/mm3 (4.4-11.0)
[2025-06-09 19:02] LABS: PTHIN 94 pg/mL (11-61)
[2025-06-09 19:03] LABS: Creatinine, Urine (random) 75.60 mg/dL (28.00-217.00); Protein, Urine (Random) 6.1 mg/dL (0.0-12.0); Protein:Creat Ratio 81 mg/g CRE (0-200)
[2025-06-09 19:18] LABS: FOLATES,SERUM (FOLIC ACID) 9.15 ng/mL (4.60-34.80)
[2025-06-09 19:33] LABS: Iron Binding Capacity,Total 329 ug/dL (250-450)
[2025-06-09 21:34] LABS: AST(SGOT) 22 U/L (<=31); Alanine Aminotransfer ALT/SGPT 14 U/L (<=34); Albumin, Serum 4.1 g/dL (3.4-4.8); Alkaline Phosphatase 77 U/L (35-104); Anion Gap 16 (5-15); BUN 36 mg/dL (4-19); BUN/Creat Ratio 22.3 RATIO (10-20); Calcium,Total 9.7 mg/dL (7.6-11.0); Carbon Dioxide 22.8 mmol/L (21.0-32.0); Chloride 100 mmol/L (98-108); Cholesterol 166 mg/dL (<=200); Globulin 3.1 g/dL (2.2-4.2); Glucose 90 mg/dL (70-99); Low Density Lipoprotein Calc. 79 mg/dL; Potassium 4.7 mmol/L (3.3-5.1); Triglycerides 107 mg/dL; Very Low Density Lipoprotein 21 mg/dL (5-40); cholesterol:hdl ratio screen 2.52
[2025-06-09 21:45] LABS: Ferritin 63 ng/mL (22-378); Magnesium 2.3 mg/dL (1.5-2.2); Vitamin B12 250 pg/mL (180-914)
[2025-06-09 21:46] LABS: Vitamin D,25 Hydroxy 37.2 ng/mL (30-100)
[2025-06-09 21:59] LABS: Iron 96 ug/dL (50-170); Iron Binding Capacity,Unsat 233 ug/dL (228-428)
== END | disposition home or self-care (01) ==
LOC: MFPLAB 14:21
PROVIDERS: PCP Family Medicine; Visit Provider Family Medicine
DX: I48.91 Unspecified atrial fibrillation (principal); N18.30 Chronic kidney disease, stage 3 unspecified; D64.9 Anemia, unspecified; E55.9 Vitamin D deficiency, unspecified
CPT/HCPCS: 36415; 80053; 80061; 82306; 82570; 82607; 82728; 82746; 83540; 83550; 83735; 83970; 84156; 84443; 85025

== ENCOUNTER 2025-08-17 06:24 | Day surgery (SDC) | payer MEDICARE, SELFPAY ==
[2025-07-28 15:35] LABS: Hematocrit 37.8 % (37-47); Hemoglobin 12.6 g/dL (12.0-15.0); Immature Granulocytes Count 0.040 X10^3/uL (0.0-0.0); Mean Corp Hgb Conc 33.3 g/dL (32-36); Mean Corpuscular Volume 94.7 fL (81-99); Mean Platelet Vol. 10.9 fl (6.2-12.0); NRBC Flagged by Analyzer 0 % (0-5); Platelet Count 178 K/mm3 (150-450); RBC Distribution Width CV 13.1 % (11.6-14.6); RBC Distribution Width SD 45.1 fl (35.1-43.9); Red Blood Count 3.99 M/mm3 (4.2-5.4); White Blood Count 7.5 K/mm3 (4.4-11.0)
[2025-07-28 15:46] LABS: Partial Thromboplast Time 25.4 Seconds (24.1-36.2); Prothrombin Time (Protime)PT. 15.3 SECONDS (11.7-14.9)
[2025-07-28 16:22] LABS: Anion Gap 10 (5-15); BUN 23 mg/dL (4-19); BUN/Creat Ratio 18.1 RATIO (10-20); Calcium,Total 9.8 mg/dL (7.6-11.0); Carbon Dioxide 26.6 mmol/L (21.0-32.0); Chloride 106 mmol/L (98-108); Glucose 106 mg/dL (70-99); Potassium 4.8 mmol/L (3.3-5.1)
[2025-08-12 14:33] VITALS: BMI 26.2
--- OUTSIDE RECORDS SUMMARY | 2025-08-17 06:28 | XMS RPT_ITS | CCD ---
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 1.485 m Peterson Shelley MD 07/14/2025 2:56 PM Signed CARDIOTHORACIC SURGERY CONSULT / HANDP SERVICE DATE: 07/14/2025 SERVICE TIME: 1:18 PM Subjective PRIMARY SERVICE: Cardiothoracic Surgery CHIEF COMPLAINT: Ascending aortic aneurysm HPI: This is a 80 year old woman is referred for evaluation of an ascending aortic aneurysm. The patient is an 80-year-old female with paroxysmal atrial fibrillation, HTN, HLD, CKD stage 3, and anemia presenting for evaluation of a thoracic aortic aneurysm. The patient reports recent onset of dyspnea, most noticeable in the mornings when feeding her cats. She denies any history of emphysema or bronchitis, has never smoked, and has never used inhalers. She denies chest heaviness, pressure, or pain. She also notes that her balance is not as good as it used to be. She was diagnosed with paroxysmal atrial fibrillation a little over a year ago and has been on Eliquis since diagnosis. She is also on metoprolol and digoxin. She reports easy bruising and difficulty stopping bleeding from minor injuries, such as cat scratches. She denies any history of stroke or heart failure. She has a history of HTN, with a recent BP reading in the 130s systolic, which she attributes to being measured over a bulky sweatshirt. She is also being treated for HLD. She denies diabetes, but her eye doctor recently suggested she be checked for it due to a finding on a recent eye exam. She reports intermittent rectal bleeding, with blood visible in the toilet for a few days at a time, then resolving. She denies abdominal pain and any history of colon ulcers or tumors. She was seen by surgery in late March for rectal bleeding, which was thought to be from hemorrhoids, and a colonoscopy was recommended if symptoms persisted. She has not had a recent colonoscopy. She reports being told by her PCP that she has CKD, but has never required dialysis. She denies liver disease, hepatitis, cirrhosis, vascular disease, or procedures on the blood vessels in her legs. She denies leg swelling. 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 She lives independently, does her own grocery shopping, and still drives. PAST MEDICAL HISTORY Diagnosis Date A-fib (HCC) Anemia Aortic root dilatation CKD (chronic kidney disease) stage 3, GFR 30-59 ml/min (HCC) PAST SURGICAL HISTORY Procedure Laterality Date LASER SURGERY OF EYE 2007 FAMILY HISTORY Problem Relation Age of Onset Diabetes Mother Hypertension Mother Heart disease Father Diabetes Father SOCIAL HISTORY[1] Prescriptions Prior to Admission[2] ELIQUIS 5 mg tab(s) Take 1 tablet by mouth every 12 hours. digoxin (LANOXIN) 125 mcg (0.125 mg) tablet Take 1 tablet by mouth once daily. furosemide (LASIX) 40 mg tablet Take 1 tablet by mouth once daily. metoprolol tartrate, short acting, (LOPRESSOR) 50 mg tablet Take 1 tablet by mouth every 12 hours. rosuvastatin (CRESTOR) 5 mg tablet Take 1 tablet by mouth once daily. Cholecalciferol, Vitamin D3, (VITAMIN D-3) 50 mcg (2,000 unit) cap Take 1 capsule by mouth once daily. ALLERGIES No Known Allergies REVIEW OF SYSTEMS: Constitutional: (+) fatigue Ears/Nose/Mouth/Thro at: (+) dry throat Cardiovascular: (-) chest pain, (-) chest pressure, (-) lower extremity swelling Respiratory: (+) dyspnea Gastrointestinal: (+) rectal bleeding, (-) abdominal pain Neurological: (+) balance difficulty Hematologic/Lymphati c: (+) easy bruising Objective PHYSICAL EXAM: General: No acute distress. CV: Irregularly irregular rhythm; strong radial pulses bilaterally; strong carotid pulses bilaterally; no jugular venous distention. Resp: Lungs clear to auscultation bilaterally. Abd: Soft, non-tender. MSK/Ext: No lower extremity edema. Skin: Mild ecchymosis on dorsum of hands. DATA: Diagnostic tests reviewed for today's visit: CTA of chest and echo CTA chest performed 03/18/2025 at [facility] shows: Dilated ascending aorta measuring 5.1 x 5.3 cm maximum cross-section; proximal arch measures up to 5 cm; descending thoracic aorta is nondilated. 2D echo performed on 04/02/2025 at [facility] shows: Normal left ventricle function Normal mitral valve with 1+ MR Normal tricuspid valve with mild TR Aortic valve trileaflet with mild AI Mildly dilated aortic root Assessment AND Plan Aneurysm of ascending aorta without rupture Ashley Crews is a 80-year-old woman with paroxysmal atrial fibrillation on chronic anticoagulation without complication who was found to have an as (more content not included)... Normal [facility] 07-14-2025 RAD[facility] Telephone ([facility]) ASHLEY CREWS ([id number]) 1945 F Date Time Provider Department 07/14/25 IDA CHRISTENSEN During your visit today, we recorded the following information about you: Maria M Abrams 07/14/2025 2:48 PM Signed Ida - is this patient being done in [place] or [place]. You have Dr. Crowley as the cathing Physician? Thanks Allergies As of Date: 07/14/2025 (No Known Allergies) Date Reviewed: 07/14/2025 Reviewed by: Linda Dias LPN - Fully Assessed Prescriptions as of 07/15/2025 - ELIQUIS 5 mg tab(s) Take 1 tablet by mouth every 12 hours. - digoxin (LANOXIN) 125 mcg (0.125 mg) tablet Take 1 tablet by mouth once daily. - furosemide (LASIX) 40 mg tablet Take 1 tablet by mouth once daily. - metoprolol tartrate, short acting, (LOPRESSOR) 50 mg tablet Take 1 tablet by mouth every 12 hours. - rosuvastatin (CRESTOR) 5 mg tablet Take 1 tablet by mouth once daily. - Cholecalciferol, Vitamin D3, (VITAMIN D-3) 50 mcg (2,000 unit) cap Take 1 capsule by mouth once daily. Problem List As Of Date: 07/14/2025 (None) Encounter Status:Closed by TAVO BELLO on 07/15/25 Normal [facility] Absolute lymphocyte countOrd ered By: Ulysses Spencer on 06-09-2025 Lymphocytes Auto (Unsp spec) [#/Vol] 1.34 10*3/uL 0.83-4.51 [facility] Absolute neutrophil countOrd ered By: Ulysses Spencer on 06-09-2025 Neutrophils (Bld) [#/Vol] 4.3 10*3/uL 2.0-7.7 [facility] Anion gap in Serum or Plasma Ordered By: Ulysses Spencer on 06-09-2025 Anion gap [Moles/Vol] 16 mmol/L High 5-15 [facility] Automated lymphocyte count a s percentage of total leukocytesOrdered By: Ulysses Spencer on 06-09-2025 Lymphocytes/100 WBC Auto (Unsp spec) 21.5 % 19-41 [facility] BUN/creatinine ratioOrdered By: Ulysses Spencer on 06-09-2025 Urea nitrogen/Creatinine [Mass ratio] 22.3 mg/mg High 10-20 [facility] Basophil percentageOrdered B y: Ulysses Spencer on 06-09-2025 Basophils/100 WBC (Bld) 1.0 % 0-1 [facility] Bilirubin, totalOrdered By: Ulysses Spencer on 06-09-2025 Bilirubin [Mass/Vol] 0.50 mg/dL 0.00-1.30 [facility] CBC W/Diff, Automatedon 05-19 Absolute Lymph 1.34 X10 3/uL Normal 0.83-4.51 [facility] Comment on above: Order Comment: Order Date: 04/08/25 Order Info: 0184-1 - CBCD Performed By: #### L 501.9520, L500.4050, L100.0100, L500.4100, L501.5200 #### [facility] [address] [place], [address] Absolute Neut 4.3 X10 3/uL Normal 2.0-7.7 [facility] Comment on above: Order Comment: Order Date: 04/08/25 Order Info: 0184-1 - CBCD Performed By: #### L 501.9520, L500.4050, L100.0100, L500.4100, L501.5200 #### [facility] [address] [place], [address] Basophils/100 WBC (Bld) 1.0 % Normal 0-1 [facility] Comment on above: Order Comment: Order Date: 04/08/25 Order Info: 0184-1 - CBCD Performed By: #### L 501.9520, L500.4050, L100.0100, L500.4100, L501.5200 #### [facility] [address] [place], [address] Eosinophils/100 WBC (Bld) 1.3 % Normal 0-5 [facility] Comment on above: Order Comment: Order Date: 04/08/25 Order Info: 0184-1 - CBCD Performed By: #### L 501.9520, L500.4050, L100.0100, L500.4100, L501.5200 #### [facility] [address] [place], [address] Erythrocyte distribution width (RBC) [Ratio] 12.9 % Normal 11.6-14.6 [facility] Comment on above: Order Comment: Order Date: 04/08/25 Order Info: 0184-1 - CBCD Performed By: #### L 501.9520, L500.4050, L100.0100, L500.4100, L501.5200 #### [facility] [address] [place], [address] Hematocrit (Bld) [Volume fraction] 38.3 % Normal 37-47 [facility] Comment on above: Order Comment: Order Date: 04/08/25 Order Info: 0184-1 - CBCD Performed By: #### L 501.9520, L500.4050, L100.0100, L500.4100, L501.5200 #### [facility] [address] [place], [address] Hemoglobin (Bld) [Mass/Vol] 12.7 g/dL Normal 12.0-15.0 [facility] Comment on above: Order Comment: Order Date: 04/08/25 Order Info: 0184-1 - CBCD Performed By: #### L 501.9520, L500.4050, L100.0100, L500.4100, L501.5200 #### [facility] [address] [place], [address] IG% 0.300 Normal 0.0-0.9 [facility] Comment on above: Order Comment: Order Date: 04/08/25 Order Info: 0184-1 - CBCD Result Comment: IG% - Immature Granulocytes (promyelocytes, myelocytes and metamyelocytes) > 1% indicates that a LEFT SHIFT is Present. Performed By: #### L 501.9520, L500.4050, L100.0100, L500.4100, L501.5200 #### [facility] [address] [place], [address] Lymphocytes/100 WBC (Bld) 21.5 % Normal 19-41 [facility] Comment on above: Order Comment: Order Date: 04/08/25 Order Info: 0184-1 - CBCD Performed By: #### L 501.9520, L500.4050, L100.0100, L500.4100, L501.5200 #### [facility] [address] [place], [address] MCH (RBC) [Entitic mass] 31.6 pg Normal 27.0-32.0 [facility] Comment on above: Order Comment: Order Date: 04/08/25 Order Info: 018-1 - CBCD Performed By: #### L 501.9520, L500.4050, L100.0100, L500.4100, L501.5200 #### [facility] [address] [place], [address] MCHC (RBC) [Mass/Vol] 33.2 g/dL Normal 32-36 [facility] Comment on above: Order Comment: Order Date: 04/08/25 Order Info: 018- - CBCD Performed By: #### L 501.9520, L500.4050, L100.0100, L500.4100, L501.5200 #### [facility] [address] [place], [address] MCV (RBC) [Entitic vol] 95.3 fL Normal 81-99 [facility] Comment on above: Order Comment: Order Date: 04/08/25 Order Info: 018- - CBCD Performed By: #### L 501.9520, L500.4050, L100.0100, L500.4100, L501.5200 #### [facility] [address] [place], [address] Monocytes/100 WBC (Bld) 7.2 % Normal 0-10 [facility] Comment on above: Order Comment: Order Date: 04/08/25 Order Info: 018- - CBCD Performed By: #### L 501.9520, L500.4050, L100.0100, L500.4100, L501.5200 #### [facility] [address] [place], [address] Neutrophils/100 WBC (Bld) 68.7 % Normal 47-70 [facility] Comment on above: Order Comment: Order Date: 04/08/25 Order Info: 0184-1 - CBCD Performed By: #### L 501.9520, L500.4050, L100.0100, L500.4100, L501.5200 #### [facility] [address] [place], [address] Nucleated RBC (Bld) [#/Vol] 0 10*3/uL Normal 0-5 [facility] Comment on above: Order Comment: Order Date: 04/08/25 Order Info: 0184-1 - CBCD Performed By: #### L 501.9520, L500.4050, L100.0100, L500.4100, L501.5200 #### [facility] [address] [place], [address] Platelet mean volume (Bld) [Entitic vol] 10.9 fL Normal 6.2-12.0 [facility] Comment on above: Order Comment: Order Date: 04/08/25 Order Info: 0184- - CBCD Performed By: #### L 501.9520, L500.4050, L100.0100, L500.4100, L501.5200 #### [facility] [address] [place], [address] Platelets (Bld) [#/Vol] 202 10*3/uL Normal 150-450 [facility] Comment on above: Order Comment: Order Date: 04/08/25 Order Info: 0184- - CBCD Performed By: #### L 501.9520, L500.4050, L100.0100, L500.4100, L501.5200 #### [facility] [address] [place], [address] RBC (Bld) [#/Vol] 4.02 10*6/uL Low 4.2-5.4 [facility] Comment on above: Order Comment: Order Date: 04/08/25 Order Info: 0184-1 - CBCD Performed By: #### L 501.9520, L500.4050, L100.0100, L500.4100, L501.5200 #### [facility] [address] [place], [address] RDW SD 45.2 fl High 35.1-43.9 [facility] Comment on above: Order Comment: Order Date: 04/08/25 Order Info: 0184-1 - CBCD Performed By: #### L 501.9520, L500.4050, L100.0100, L500.4100, L501.5200 #### [facility] [address] [place], [place], [address] WBC (Bld) [#/Vol] 6.2 10*3/uL Normal 4.4-11.0 [facility] Comment on above: Order Comment: Order Date: 04/08/25 Order Info: 0184-1 - CBCD Performed By: #### L 501.9520, L500.4050, L100.0100, L500.4100, L501.5200 #### [facility] [address] [place], [place], [id number] Calculated very low density lipoprotein (VLDL) cholesterol measurementOrdered By: Ulysses Spencer on 06-09-2025 Calculated very low density lipoprotein (VLDL) cholesterol measurement 21 mg/dL 5-40 [facility] Carbon dioxide, total [Moles /volume] in Central venous bloodOrdered By: Ulysses Spencer on 06-09-2025 CO2 [Moles/Vol] 22.8 mmol/L 21.0-32.0 [facility] Chloride assayOrdered By: Sanjuanita Spencer on 06-09-2025 Chloride [Moles/Vol] 100 mmol/L 98-108 [facility] Comprehensive Metabolic Prof ilon 06-09-2025 Albumin [Mass/Vol] 4.1 g/dL Normal 3.4-4.8 [facility] Comment on above: Order Comment: Order Date: 04/08/25 Order Info: 0786-1 - CMP Order Info: [id number] - LIPID Order Info: [id number] - MG Order Info: 3016-3 - TSH Performed By: #### L 501.9520, L500.4050, L100.0100, L500.4100, L501.5200 #### [facility] [address] [place], [address] Albumin/Globulin [Mass ratio] 1.3 {ratio} Normal 0.9-2.4 [facility] Comment on above: Order Comment: Order Date: 04/08/25 Order Info: 0786-1 - CMP Order Info: [id number] - LIPID Order Info: [id number] - MG Order Info: 3016-3 - TSH Performed By: #### L 501.9520, L500.4050, L100.0100, L500.4100, L501.5200 #### [facility] [address] [place], [address] ALK PHOS 77 U/L Normal 35-104 [facility] Comment on above: Order Comment: Order Date: 04/08/25 Order Info: 785-1 - CMP Order Info: [id number] - LIPID Order Info: [id number] - MG Order Info: 301-3 - TSH Performed By: #### L 501.9520, L500.4050, L100.0100, L500.4100, L501.5200 #### [facility] [address] [place], [address] ALT [Catalytic activity/Vol] 14 U/L Normal <=34 [facility] Comment on above: Order Comment: Order Date: 04/08/25 Order Info: 0786-1 - CMP Order Info: [id number] - LIPID Order Info: [id number] - MG Order Info: 3016-3 - TSH Performed By: #### L 501.9520, L500.4050, L100.0100, L500.4100, L501.5200 #### [facility] [address] [place], [address] AST [Catalytic activity/Vol] 22 U/L Normal <=31 [facility] Comment on above: Order Comment: Order Date: 04/08/25 Order Info: 0786-1 - CMP Order Info: [id number] - LIPID Order Info: [id number] - MG Order Info: 3 - TSH Performed By: #### L 501.9520, L500.4050, L100.0100, L500.4100, L501.5200 #### [facility] [address] [place], [address] Bilirubin [Mass/Vol] 0.50 mg/dL Normal 0.00-1.30 [facility] Comment on above: Order Comment: Order Date: 04/08/25 Order Info: 0786-1 - CMP Order Info: [id number] - LIPID Order Info: [id number] - MG Order Info: 3 - TSH Performed By: #### L 501.9520, L500.4050, L100.0100, L500.4100, L501.5200 #### [facility] [address] [place], [address] BUN/CRE 22.3 RATIO High 10-20 [facility] Comment on above: Order Comment: Order Date: 04/08/25 Order Info: 0786-1 - CMP Order Info: [id number] - LIPID Order Info: [id number] - MG Order Info: 3 - TSH Performed By: #### L 501.9520, L500.4050, L100.0100, L500.4100, L501.5200 #### [facility] [address] [place], [address] Calcium [Mass/Vol] 9.7 mg/dL Normal 7.6-11.0 [facility] Comment on above: Order Comment: Order Date: 04/08/25 Order Info: 0786-1 - CMP Order Info: [id number] - LIPID Order Info: [id number] - MG Order Info: 3015-3 - TSH Performed By: #### L 501.9520, L500.4050, L100.0100, L500.4100, L501.5200 #### [facility] [address] [place], [address] Chloride [Moles/Vol] 100 mmol/L Normal 98-108 [facility] Comment on above: Order Comment: Order Date: 04/08/25 Order Info: 86-1 - CMP Order Info: [id number] - LIPID Order Info: [id number] - MG Order Info: 3016-3 - TSH Performed By: #### L 501.9520, L500.4050, L100.0100, L500.4100, L501.5200 #### [facility] [address] [place], [address] CO2 [Moles/Vol] 22.8 mmol/L Normal 21.0-32.0 [facility] Comment on above: Order Comment: Order Date: 04/08/25 Order Info: 785-1 - CMP Order Info: [id number] - LIPID Order Info: [id number] - MG Order Info: 3016-3 - TSH Performed By: #### L 501.9520, L500.4050, L100.0100, L500.4100, L501.5200 #### [facility] [address] [place], [place], [address] Creatinine [Mass/Vol] 1.59 mg/dL High 0.70-1.20 [facility] Comment on above: Order Comment: Order Date: 04/08/25 Order Info: 785-1 - CMP Order Info: [id number] - LIPID Order Info: [id number] - MG Order Info: 3016-3 - TSH Performed By: #### L 501.9520, L500.4050, L100.0100, L500.4100, L501.5200 #### [facility] [address] [place], [address] GAP 16 High 5-15 [facility] Comment on above: Order Comment: Order Date: 04/08/25 Order Info: 07-1 - CMP Order Info: [id number] - LIPID Order Info: [id number] - MG Order Info: 3016-3 - TSH Performed By: #### L 501.9520, L500.4050, L100.0100, L500.4100, L501.5200 #### [facility] [address] [place], [place], [id number] GFR/1.73 sq M.predicted among non-blacks MDRD (S/P/Bld) [Vol rate/Area] 32 mL/min/{1.73_m2} Low >60 [facility] Comment on above: Order Comment: Order Date: 04/08/25 Order Info: 07- - CMP Order Info: [id number] - LIPID Order Info: [id number] - MG Order Info: 3016-3 - TSH Result Comment: mL/m in/1.73m2 CKD-EPI Creatinine Equation (2020) Performed By: #### L 501.9520, L500.4050, L100.0100, L500.4100, L501.5200 #### [facility] [address] [place], [place], [address] Globulin (S) [Mass/Vol] 3.1 g/dL Normal 2.2-4.2 [facility] Comment on above: Order Comment: Order Date: 04/08/25 Order Info: 07 - CMP Order Info: [id number] - LIPID Order Info: [id number] - MG Order Info: 3016-3 - TSH Performed By: #### L 501.9520, L500.4050, L100.0100, L500.4100, L501.5200 #### [facility] [address] [place], [address] Glucose [Mass/Vol] 90 mg/dL Normal 70-99 [facility] Comment on above: Order Comment: Order Date: 04/08/25 Order Info: 0786 - CMP Order Info: [id number] - LIPID Order Info: [id number] - MG Order Info: 3016-3 - TSH Performed By: #### L 501.9520, L500.4050, L100.0100, L500.4100, L501.5200 #### [facility] [address] [place], [address] Potassium [Moles/Vol] 4.7 mmol/L Normal 3.3-5.1 [facility] Comment on above: Order Comment: Order Date: 04/08/25 Order Info: 0786-1 - CMP Order Info: [id number] - LIPID Order Info: [id number] - MG Order Info: 3016-3 - TSH Performed By: #### L 501.9520, L500.4050, L100.0100, L500.4100, L501.5200 #### [facility] [address] [place], [address] Sodium [Moles/Vol] 138 mmol/L Normal 133-145 [facility] Comment on above: Order Comment: Order Date: 04/08/25 Order Info: 785-1 - CMP Order Info: [id number] - LIPID Order Info: [id number] - MG Order Info: 3016-3 - TSH Performed By: #### L 501.9520, L500.4050, L100.0100, L500.4100, L501.5200 #### [facility] [address] [place], [address] T PROT 7.2 g/dL Normal 5.9-8.4 [facility] Comment on above: Order Comment: Order Date: 04/08/25 Order Info: 0786-1 - CMP Order Info: [id number] - LIPID Order Info: [id number] - MG Order Info: 3016-3 - TSH Performed By: #### L 501.9520, L500.4050, L100.0100, L500.4100, L501.5200 #### [facility] [address] [place], [address] Urea nitrogen [Mass/Vol] 36 mg/dL High 4-19 [facility] Comment on above: Order Comment: Order Date: 04/08/25 Order Info: 0786-1 - CMP Order Info: [id number] - LIPID Order Info: [id number] - MG Order Info: [id number] - TSH Performed By: #### L 501.9520, L500.4050, L100.0100, L500.4100, L501.5200 #### [facility] [address] [place], [place], [id number] Eosinophil percentageOrdered By: Ulysses Spencer on 06-09-2025 Eosinophils/100 WBC (Bld) 1.3 % 0-5 [facility] Erythrocyte distribution wid th ratioOrdered By: Ulysses Spencer on 06-09-2025 Erythrocyte distribution width (RBC) [Ratio] 12.9 % 11.6-14.6 [facility] Erythrocyte distribution wid th standard deviationOrdered By: Ulysses Spencer on 06-09-2025 Erythrocyte distribution width (RBC) [Ratio] 45.2 fl High 35.1-43.9 [facility] Ferritinon 06-09-2025 Ferritin [Mass/Vol] 63 ng/mL Normal 22-378 [facility] Comment on above: Order Comment: Order Date: 04/08/25Order Info: 0786-1 - CMPOrder Info: [id number] - LIPIDOrder Info: [id number] - MGOrder Info: [id number] - TSH Performed By: #### L 501.0900, L506.1001, L503.6550, L506.0200, L503.6030, L503.0106, L509.1000 ####[facility] [id number] [place], [place], [id number] Folate [Mass/volume] in Seru m or PlasmaOrdered By: Ulysses Spencer on 06-09-2025 Folate [Mass/Vol] 9.15 ng/mL 4.60-34.80 [facility] Folates,Serum (Folic Acid)on 06-09-2025 FOLATES,SERUM 9.15 ng/mL Normal 4.60-34.80 [facility] Comment on above: Order Comment: N Performed By: #### L 501.0900, L506.1001, L503.6550, L506.0200, L503.6030, L503.0106, L509.1000 ####[facility] [id number] [place], [address] Glomerular filtration rate ( GFR) estimation/1.73 sq m using serum, plasma, or whole bOrdered By: Ulysses Spencer on 06-09-2025 GFR/1.73 sq M.predicted among non-blacks MDRD (S/P/Bld) [Vol rate/Area] 32 mL/min/{1.73_m2} Low >60 [facility] Comment on above: mL/min/1.73m2 CKD-EP I Creatinine Equation (2020) Hematocrit Auto (Bld) [Volum e fraction]Ordered By: Ulysses Spencer on 06-09-2025 Hematocrit (Bld) [Volume fraction] 38.3 % 37-47 [facility] Hemoglobin measurementOrdere d By: Ulysses Spencer on 06-09-2025 Hemoglobin (Bld) [Mass/Vol] 12.7 g/dL 12.0-15.0 [facility] Immature granulocytes/100 WB C Auto (Bld)Ordered By: Ulysses Spencer on 06-09-2025 Immature granulocytes/100 WBC (Bld) 0.300 % 0.0-0.9 [facility] Comment on above: IG% - Immature Granu locytes (promyelocytes, myelocytes and metamyelocytes) > 1% indicates that a LEFT SHIFT is Present. Iron measurement (mass/mass) Ordered By: Ulysses Spencer on 06-09-2025 Iron (Unsp spec) [Mass/Mass] 96 ug/dL 50-170 [facility] Iron+Iron Binding Capacityon 06-09-2025 Iron [Mass/Vol] 96 ug/dL Normal 50-170 [facility] Comment on above: Order Comment: Order Date: 04/08/25Order Info: 0786-1 - CMPOrder Info: [id number] - LIPIDOrder Info: [id number] - MGOrder Info: [id number] - TSH Performed By: #### L 501.0900, L506.1001, L503.6550, L506.0200, L503.6030, L503.0106, L509.1000 ####[facility] [id number] [place], [address] UIBC 233 ug/dL Normal 228-428 [facility] Comment on above: Order Comment: Order Date: 04/08/25Order Info: 0786- - CMPOrder Info: [id number] - LIPIDOrder Info: [id number] - MGOrder Info: 6-3 - TSH Performed By: #### L 501.0900, L506.1001, L503.6550, L506.0200, L503.6030, L503.0106, L509.1000 ####[facility] [address] [place], [address] LDL calc ser/plasOrdered By: Ulysses Spencer on 06-09-2025 Cholesterol in LDL [Mass/Vol] 79 mg/dL [facility] Comment on above: Vfljuunvdl=673-919 m g/dL & Higher Elfq=620 mg/dL or greaterFriedwald Equation for LDL-C Laboratory - Chemistry and C hemistry - challengeOrdered By: Ulysses Spencer on 06-09-2025 AST [Catalytic activity/Vol] 22 U/L <32 [facility] Lipid Profileon 06-09-2025 CHOL:HDL 2.52 Normal [facility] Comment on above: Order Comment: Order Date: 04/08/25 Order Info: 0786- - CMP Order Info: [id number] - LIPID Order Info: [id number] - MG Order Info: [id number] - TSH Performed By: #### L 501.9520, L500.4050, L100.0100, L500.4100, L501.5200 #### [facility] [address] [place], [address] Cholesterol [Mass/Vol] 166 mg/dL Normal <=200 [facility] Comment on above: Order Comment: Order Date: 04/08/25 Order Info: 0786- - CMP Order Info: [id number] - LIPID Order Info: [id number] - MG Order Info: 3015-3 - TSH Result Comment: Chol esterol level, Desirable <200 mg/dL Borderline high cholesterol 200-239 mg/dL High cholesterol >=240 mg/dL Recommendations of the NCEP Adult Treatment Panel for the following risk-cutoff thresholds for the [place] population. Performed By: #### L 501.9520, L500.4050, L100.0100, L500.4100, L501.5200 #### [facility] [address] [place], [address] Cholesterol in HDL [Mass/Vol] 66 mg/dL Normal [facility] Comment on above: Order Comment: Order Date: 04/08/25 Order Info: [id number] - CMP Order Info: [id number] - LIPID Order Info: [id number] - MG Order Info: [id number] - TSH Result Comment: Sanam onal Cholesterol Education Program (NCEP) guidelines: <40 mg/dL: Low HDL-cholesterol (major risk factor for CHD) >= 60 mg/dL: High HDL-cholesterol (negative risk factor for CHD) HDL-cholesterol is affected by a number of factors, e.g. smoking, exercise, hormones, sex and age. Performed By: #### L 501.9520, L500.4050, L100.0100, L500.4100, L501.5200 #### [facility] [address] [place], [address] Cholesterol in LDL [Mass/Vol] 79 mg/dL Normal [facility] Comment on above: Order Comment: Order Date: 04/08/25 Order Info: [id number] - CMP Order Info: [id number] - LIPID Order Info: [id number] - MG Order Info: [id number] - TSH Result Comment: Bord osohby=006-312 mg/dL Higher Hmdz=559 mg/dL or greater Friedwald Equation for LDL-C Performed By: #### L 501.9520, L500.4050, L100.0100, L500.4100, L501.5200 #### [facility] [address] [place], [address] Cholesterol in VLDL [Mass/Vol] 21 mg/dL Normal 5-40 [facility] Comment on above: Order Comment: Order Date: 04/08/25 Order Info: [id number] - CMP Order Info: [id number] - LIPID Order Info: [id number] - MG Order Info: [id number] - TSH Performed By: #### L 501.9520, L500.4050, L100.0100, L500.4100, L501.5200 #### [facility] [address] [place], [place], [address] Triglyceride [Mass/Vol] 107 mg/dL Normal [facility] Comment on above: Order Comment: Order Date: 04/08/25 Order Info: [id number] - CMP Order Info: - LIPID Order Info: [id number] - MG Order Info: [id number] - TSH Result Comment: The drugs N-Acetylcysteine and Metamizole may falsely depress this assay. Normal range: <150 mg/dL Borderline High: 150-199 mg/dL High: 200-499 mg/dL Very High: >500 mg/dL Performed By: #### L 501.9520, L500.4050, L100.0100, L500.4100, L501.5200 #### [facility] [address] [place], [place], [address] MCV (mean corpuscular volume ) determinationOrdered By: Ulysses Spencer on 06-09-2025 MCV (RBC) [Entitic vol] 95.3 fL 81-99 [facility] Magnesiumon 06-09-2025 Magnesium [Mass/Vol] 2.3 mg/dL High 1.5-2.2 [facility] Comment on above: Order Comment: Order Date: 04/08/25 Order Info: [id number] - CMP Order Info: - LIPID Order Info: [id number] - MG Order Info: [id number] - TSH Performed By: #### L 501.9520, L500.4050, L100.0100, L500.4100, L501.5200 #### [facility] [address] [place], [place], [id number] Magnesium measurement (mass/ volume)Ordered By: Ulysses Spencer on 06-09-2025 Magnesium (Unsp spec) [Mass/Vol] 2.3 mg/dL High 1.5-2.2 [facility] Mean corpuscular hemoglobin (MCH) determinationOrdered By: Ulysses Spencer on 06-09-2025 MCH (RBC) [Entitic mass] 31.6 pg 27.0-32.0 [facility] Mean corpuscular hemoglobin concentration (MCHC) determinationOrdered By: Ulysses Spencer on 06-09-2025 MCHC (RBC) [Mass/Vol] 33.2 g/dL 32-36 [facility] Mean platelet volume determi nationOrdered By: Ulysses Spencer on 06-09-2025 Platelet mean volume (Bld) [Entitic vol] 10.9 fL 6.2-12.0 [facility] Monocyte percentageOrdered B y: Ulysses Spencer on 06-09-2025 Monocytes/100 WBC (Bld) 7.2 % 0-10 [facility] Neutrophil percentageOrdered By: Ulysses Spencer on 06-09-2025 Neutrophils/100 WBC (Bld) 68.7 % 47-70 [facility] No Panel InformationOrdered By: Ulysses Spencer on 06-09-2025 Unsaturated Iron Binding Capacity 233 ug/dL 228-428 [facility] Nucleated red blood cell per centageOrdered By: Ulysses Spencer on 06-09-2025 Nucleated RBC/100 WBC (Bld) [Ratio] 0 % 0-5 [facility] PTHINon 06-09-2025 PTH 94 pg/mL High 11-61 [facility] Comment on above: Performed By: #### L 501.0900, L506.1001, L503.6550, L506.0200, L503.6030, L503.0106, L509.1000 ####[facility] [address] [place], [place], [id number] Platelet countOrdered By: Sanjuanita Spencer on 06-09-2025 Platelets (Bld) [#/Vol] 202 10*3/uL 150-450 [facility] Potassium measurement (mass/ volume)Ordered By: Ulysses Spencer on 06-09-2025 Potassium (Unsp spec) [Mass/Vol] 4.7 mmol/L 3.3-5.1 [facility] Protein+Creatinine Ratio,Uri neon 06-09-2025 PROT:CRE RATIO 81 mg/g CRE Normal 0-200 [facility] Comment on above: Performed By: #### L 501.0900, L506.1001, L503.6550, L506.0200, L503.6030, L503.0106, L509.1000 ####[facility] [address] [place], [address] Protein (U) [Mass/Vol] 6.1 mg/dL Normal 0.0-12.0 [facility] Comment on above: Performed By: #### L 501.0900, L506.1001, L503.6550, L506.0200, L503.6030, L503.0106, L509.1000 ####[facility] [address] [place], [address] UR CREAT 75.60 mg/dL Normal 28.00-217.00 [facility] Comment on above: Performed By: #### L 501.0900, L506.1001, L503.6550, L506.0200, L503.6030, L503.0106, L509.1000 ####[facility] [address] [place], [address] RBC Auto (Bld) [#/Vol]Ordere d By: Ulysses Spencer on 06-09-2025 RBC (Bld) [#/Vol] 4.02 10*6/uL Low 4.2-5.4 [facility] Random urine creatinine kenny urement (mass/volume)Ordered By: Ulysses Spencer on 06-09-2025 Creatinine Unsp time (U) [Mass/Vol] 75.60 mg/dL 28.00-217.00 [facility] Screening total cholesterol/ high density lipoprotein (HDL) cholesterol ratioOrdered By: Ulysses Spencer on 06-09-2025 Cholesterol.total/Iris sterol in HDL [Mass ratio] 2.52 {ratio} [facility] Serum creatinine measurement (mass/volume)Ordered By: Ulysses Spencer on 06-09-2025 Creatinine [Mass/Vol] 1.59 mg/dL High 0.70-1.20 [facility] Serum globulin measurementOr dered By: Ulysses Spencer on 06-09-2025 Globulin (S) [Mass/Vol] 3.1 g/dL 2.2-4.2 [facility] Serum glucose measurement (m ass/volume)Ordered By: Ulysses Spencer on 06-09-2025 Glucose [Mass/Vol] 90 mg/dL 70-99 [facility] Serum or plasma alanine alexis otransferase (ALT) measurementOrdered By: Ulysses Spencer on 06-09-2025 ALT [Catalytic activity/Vol] 14 U/L <35 [facility] Serum or plasma albumin kenny urement (mass/volume)Ordered By: Ulysses Spencer on 06-09-2025 Albumin [Mass/Vol] 4.1 g/dL 3.4-4.8 [facility] Serum or plasma albumin/glob ulin mass ratioOrdered By: Ulysses Spencer on 06-09-2025 Albumin/Globulin [Mass ratio] 1.3 {ratio} 0.9-2.4 [facility] Serum or plasma alkaline mishel sphatase measurementOrdered By: Ulysses Spencer on 06-09-2025 ALP [Catalytic activity/Vol] 77 U/L 35-104 [facility] Serum or plasma calcium kenny urement (mass/volume)Ordered By: Ulysses Spencer on 06-09-2025 Calcium [Mass/Vol] 9.7 mg/dL 7.6-11.0 [facility] Serum or plasma cholesterol in HDL measurement (mass/volume)Ordered By: Ulysses Spencer on 06-09-2025 Cholesterol in HDL [Mass/Vol] 66 mg/dL >40 [facility] Comment on above: National Cholesterol Education Program (NCEP) guidelines:<40 mg/dL: Low HDL-cholesterol (major risk factor for CHD)>= 60 mg/dL: High HDL-cholesterol (negative risk factor for CHD)HDL-cholesterol is affected by a number of factors, e.g. smoking, exercise, hormones, sex and age. Serum or plasma cholesterol measurement (mass/volume)Ordered By: Ulysses Spencer on 06-09-2025 Cholesterol [Mass/Vol] 166 mg/dL <201 [facility] Comment on above: Cholesterol level, D esirable <200 mg/dLBorderline high cholesterol 200-239 mg/dLHigh cholesterol >=240 mg/dLRecommendations of the NCEP Adult Treatment Panel for the following risk-cutoff thresholds for the [place] population. Serum or plasma ferritin bobby surement (mass/volume)Ordered By: Ulysses Spencer on 06-09-2025 Ferritin [Mass/Vol] 63 ng/mL 22-378 [facility] Serum or plasma iron saturat ion measurement (mass fraction)Ordered By: Ulysses Spencer on 06-09-2025 Iron saturation [Mass fraction] 29.2 % 13-59 [facility] Serum or plasma urea nitroge n measurement (mass/volume)Ordered By: Ulysses Spencer on 06-09-2025 Urea nitrogen [Mass/Vol] 36 mg/dL High 4-19 [facility] Sodium levelOrdered By: Ulysses Spencer on 06-09-2025 Sodium [Moles/Vol] 138 mmol/L 133-145 [facility] TSH DL <= 0.005 mIU/L QnOrde red By: Ulysses Spencer on 06-09-2025 TSH Qn 1.480 uIU/mL 0.300-4.200 [facility] Thyroid Stim Hormone (TSH)on 06-09-2025 TSH 1.480 uIU/mL Normal 0.300-4.200 [facility] Comment on above: Order Comment: Order Date: 04/08/25 Order Info: [id number] - CMP Order Info: [id number] - LIPID Order Info: [id number] - MG Order Info: [id number] - TSH Performed By: #### L 501.9520, L500.4050, L100.0100, L500.4100, L501.5200 #### [facility] [address] [place], [place], [id number] Total proteinOrdered By: Philip Spencer on 06-09-2025 Protein [Mass/Vol] 7.2 g/dL 5.9-8.4 [facility] Triglycerides measurementOrd ered By: Ulysses Spencer on 06-09-2025 Triglyceride [Mass/Vol] 107 mg/dL <199 [facility] Comment on above: The drugs N-Acetylcy steine and Metamizole may falsely depress this assay. Normal range: <150 mg/dLBorderline High: 150-199 mg/dLHigh: 200-499 mg/dLVery High: >500 mg/dL Urine protein measurement (m ass/volume)Ordered By: Ulysses Spencer on 06-09-2025 Protein (U) [Mass/Vol] 6.1 mg/dL 0.0-12.0 [facility] Urine protein/creatinine mas s ratioOrdered By: Ulysses Spencer on 06-09-2025 Protein/Creatinine (U) [Mass ratio] 81 mg/g CRE 0-200 [facility] Vitamin B12on 06-09-2025 Cobalamin (Vitamin B12) [Mass/Vol] 250 pg/mL Normal 180-914 [facility] Comment on above: Order Comment: Order Date: 04/08/25Order Info: [id number] - CMPOrder Info: [id number] - LIPIDOrder Info: - MGOrder Info: [id number] - TSH Performed By: #### L 501.0900, L506.1001, L503.6550, L506.0200, L503.6030, L503.0106, L509.1000 ####[facility] [address] [place], [place], [id number] Vitamin B12 ser/plasOrdered By: Ulysses Spencer on 06-09-2025 Cobalamin (Vitamin B12) [Mass/Vol] 250 pg/mL 180-914 [facility] Vitamin D,25 Hydroxyon 06-09 Vitamin D 25-OH 37.2 ng/mL Normal 30-100 [facility] Comment on above: Order Comment: Order Date: 04/08/25Order Info: [id number] - CMPOrder Info: [id number] - LIPIDOrder Info: - MGOrder Info: [id number] - TSH Result Comment: Dorcas min D Status Deficiency: <20 ng/mL (50nmol/L) Insufficiency: 20-30 ng/mL (50-75 nmol/L) Sufficiency: 30-100 ng/mL (75-250 nmol/L) Toxicity: >100 ng/mL (>250 nmol/L) Performed By: #### L 501.0900, L506.1001, L503.6550, L506.0200, L503.6030, L503.0106, L509.1000 ####[facility] [address] [place], [address] White blood cell (WBC) count Ordered By: Ulysses Spencer on 06-09-2025 WBC (Bld) [#/Vol] 6.2 10*3/uL 4.4-11.0 [facility] Surgery Visit Reporton 04-16 Surgery Visit Report [facility] [address] [place] [address] OFFICE VISIT Date of Service: 04/16/25 MR#: [id number] Acct: [id number] Name: ASHLEY CREWS Rep #: [id number] : 1945 Provider: Dr. Stevie jackson MD Age/Sex: 79/F Location: [facility] Status: Signed Intake Vital Signs 02/20/25 07:15 04/16/25 14:45 Height 5 ft 5 ft Weight: 127 lb 131 lb BMI 24.7 25.5 BP 104/69 101/59 L Blood Pressure Location Lt brachial Rt brachial Position Sitting Sitting Respiration 18 17 Pulse 86 10 L Pulse Source Monitor Monitor Pulse Oximetry (%) 99 95 Oxygen Delivery Method room air Intake Visit Reasons: RECTAL BLEEDING Chief Complaint: rectal bleeding Is patient in pain?: No Allergies No Known Allergies Allergy (Unverified 04/16/25 14:46) Medications ???Medication ???Instructions ???Recorded ???Confirmed ???Type apixaban 5 mg tablet (Eliquis) 5 mg PO BID 08/13/23 04/16/25 Hist ory cholecalciferol (vitamin D3) 50 50 mcg PO DAILY 05/02/24 04/16/25 History mcg (2,000 unit) capsule furosemide 40 mg tablet (Lasix) 40 mg PO DAILY #90 tabs 12/18/24 0 04/16/25 Rx rosuvastatin 5 mg tablet (Crestor) 5 mg PO DAILY #90 tabs 12/18/24 04/16/25 Rx digoxin 125 mcg (0.125 mg) tablet 125 mcg PO DAILY #30 tabs 5 04/16/25 Rx metoprolol tartrate 50 mg tablet 50 mg PO BID #180 tabs 04/01/25 Rx Have you fallen in the past year?: No PFSH Medical History Essential hypertension Thoracic aortic aneurysm (TAA) Longstanding persistent atrial fibrillation Pericardial effusion Cardiomyopathy Afib Tachycardia Post menopausal problems Non-smoker Surgical History s/p dental extraction S/P cataract extraction Family History Mother Diabetes Heart disease Hypertension CVA (cerebral vascular accident) Thyroid disorder Father Heart disease Brother CAD (coronary artery disease) Social History Smoking Status: Never smoker alcohol intake: current alcohol intake frequency: holidays/special occasions only substance use type: does not use caffeine: Yes Type: carbonated beverages Number of servings: 1 and coffee HPI HPI HPI: The patient is an 79-year-old female who presents today with complaints of periodic blood with bowel movements and wiping after bowel movements. She denies any pain. She denies issues with constipation. She states that this occurs a few times a month. She is on Eliquis. Last colonoscopy was in 2018. Internal and external hemorrhoids were noted. No polyps were found. ROS General General: Yes fatigue; No weight change, appetite, colon cancer, breast cancer or weakness HEENT HEENT: Yes eye surgery; No difficulty swallowing, eye injury, swollen glands or hoarseness Endo Endocrine: No thyroid disease, diabetes mellitus, thyroid cancer, Hair loss, heat intolerance or cold intolerance Skin Skin: No rash or changing moles Musc Musculoskeletal: Yes arthritis; No back problems, rheumatoid arthritis, gout or joint pain Cardio Cardiovascular: Yes murmur, atrial fibrillation and high blood pressure; No pacemaker, heart disease, heart attack, heart stent, palpitations, shortness of breath with exertion or chest pain Psych Psychiatric: No depression, anxiety or hearing voices Resp Respiratory: Yes shortness of breath, Yes sleep apnea, No cough, No COPD, No asthma, No emphysema and No wheezing Gastro Gastrointestinal: No abdominal pain, No nausea or vomiting, Yes diarrhea, No constipation, Yes blood in stool, No acid reflux, Yes hemorrhoids, No ulcers, No gallbladder problem and No black,tarry stools Keny Hematologic: Yes blood thinners, No blood disorders, No bleeding, No anemia and No blood clots Neuro Neurologic: No system reviewed and no additional complaints, except as documented, No as per HPI, No abnormal gait, No abnormal hearing, No abnormal movements, No abnormal speech, No behavioral changes, No burning sensations, No confusion, No convulsions, No disequilibrium, No dizziness, No localized weakness, No frequent falls, No headache(s), No lack of coordination, No loss of vision, No memory loss, No numbness, No other visual disturbances, No radicular pain, No restless legs, No sensory deficit, No syncope, No tingling, No tremor(s), No weakness and No other Exam Const General: cooperative, comfortable and no acute distress [facility] Head: normal to inspection Eyes General: appearance normal, both eyes and all related structures Resp Effort Inspection: normal respiratory effort GI Other: Examination of the rectum revealed moderate external hemorrhoids. She also had leonardo (more content not included)... Normal [facility] 04-08-2025 [facility] Telephone (AGVASACC) ASHLEY CREWS ([id number]) 1945 F Date Time Provider Department 04/08/25 PETERSON SHELLEY During your visit today, we recorded the following information about you: Andie Drew 04/08/2025 2:47 PM Signed Left VM to schedule OV. Referral from [facility]/Matilde BRUNER #[phone] - Thoracic aortic aneurysm (ECHO AND CTA uploaded) Andie Drew 04/14/2025 12:50 PM Signed 2nd call: Left VM to schedule OV with cardio thoracic. Referral from [facility]/Matilde BRUNER #[phone] - Thoracic aortic aneurysm-Ascending (ECHO AND CTA uploaded) Andie Drew 04/14/2025 12:51 PM Signed Referral scanned to chart. Allergies As of Date: 04/08/2025 (Not on File) Date Reviewed: Never Reviewed Reason for Visit: Appointment [186] Cmt: Appointment Problem List As Of Date: 04/08/2025 (None) Encounter Status:Closed by ANDIE DREW on 04/08/25 [facility] CNPN Telephone (AGVASReDent Nova) ASHLEY CREWS ([id number]) 1945 F Date Time Provider Department 04/08/25 PETERSON SHELLEY During your visit today, we recorded the following information about you: Andie Drew 04/08/2025 2:47 PM Signed Left VM to schedule OV. Referral from [facility]/Matilde BRUNER #[phone] - Thoracic aortic aneurysm (ECHO AND CTA uploaded) Andie Drew 04/14/2025 12:50 PM Signed 2nd call: Left VM to schedule OV with cardio thoracic. Referral from [facility]/Matilde BRUNER #[phone] - Thoracic aortic aneurysm-Ascending (ECHO AND CTA uploaded) Andie Drew 04/14/2025 12:51 PM Signed Referral scanned to chart. Sumanth Bello MA 07/14/2025 1:03 PM Signed Addended by: TAVO BELLO on: 07/14/2025 01:03 PM Modules accepted: Orders Allergies As of Date: 04/08/2025 (Not on File) Date Reviewed: Never Reviewed Reason for Visit: Appointment [186] Cmt: Appointment Prescriptions as of 07/14/2025 - ELIQUIS 5 mg tab(s) Take 1 tablet by mouth every 12 hours. - digoxin (LANOXIN) 125 mcg (0.125 mg) tablet Take 1 tablet by mouth once daily. - furosemide (LASIX) 40 mg tablet Take 1 tablet by mouth once daily. - metoprolol tartrate, short acting, (LOPRESSOR) 50 mg tablet Take 1 tablet by mouth every 12 hours. - rosuvastatin (CRESTOR) 5 mg tablet Take 1 tablet by mouth once daily. - Cholecalciferol, Vitamin D3, (VITAMIN D-3) 50 mcg (2,000 unit) cap Take 1 capsule by mouth once daily. Problem List As Of Date: 04/08/2025 (None) Encounter Status:Closed by ANDIE DREW on 04/08/25 Normal [facility] Echo Completeon 04-02-2025 Echo Complete [facility] [address] [place] [id number] Echo Complete 04/02/25 1254 MR#: [id number] Acct: [id number] Name: ASHLEY CREWS Rep #: [id number] : 1945 79 From: Lucho Crowley MD Attending Dr: FRANC Aguilar Status: REG CLI Ordering Dr: Matilde Correia Date: 03/17 04/10 Location: [facility] Sex: F C Admitted: Reason For Study : CHF Procedure This was a 2D Doppler, Color Flow transthoracic echocardiogram. Exam performed in department. Left Ventricle Normal LV size. Mild concentric left ventricular hypertrophy. Left ventricular systolic function is normal. The left ventricular ejection fraction is 55 %. No regional wall motion abnormalities noted. Right Ventricle Normal RV size. Normal systolic function. Atria Normal left atrium. Normal right atrium. Mitral Valve Normal mitral valve. Mild (1+) eccentric mitral valve insufficiency. Tricuspid Valve Normal tricuspid valve. Mild tricuspid valve insufficiency. Pulmonary artery systolic pressure is 20 mmHg. Aortic Valve Trisinus/trileaflet aortic valve. Mild (1+) aortic valve insufficiency. Pulmonic Valve Normal pulmonic valve. Great Vessels Moderately dilated aortic root. The pulmonary artery is normal size. Inferior vena cava collapse with respiration. Pericardium/Pleural Small (<1.0 cm) pericardial effusion. MMode/2D Measurements Calculations LVIDd: 4.2 cm IVSd: 1.2 cm Ao root diam: 5.3 cm LVIDs: 2.8 cm LVPWd: 1.4 cm RVDd: 3.5 cm FS: 33.5 % asc Aorta Diam: 4.6 cm LAV(MOD-bp): 57.7 ml LVAd ap4: 23.4 cm2 LAV(MOD-bp) Indexed: 36.6 ml/m2 LVLd ap4: 5.9 cm LAV(MOD-sp2): 55.3 ml EDV(MOD-sp4): 75.3 ml LAV(MOD-sp4): 54.9 ml EDV(sp4-el): 78.3 ml LVAs ap4: 14.1 cm2 LVLs ap4: 5.4 cm ESV(MOD-sp4): 31.1 ml ESV(sp4-el): 31.6 ml EF(MOD-sp4): 58.8 % EF(sp4-el): 59.7 % SV(MOD-sp4): 44.3 ml SV(sp4-el): 46.7 ml Ao sinus diam: 3.2 cm SI(MOD-sp4): 28.0 ml/m2 Ao ST Junction: 2.8 cm LA A4 area: 19.3 cm2 LA dimension(2D): 3.9 cm RA A4 area: 16.0 cm2 Doppler Measurements Calculations MV E max dali: 63.7 cm/sec MV V2 max: 84.7 cm/sec MV P1/2t max dali: 83.8 cm/sec MV max P.9 mmHg MV P1/2t: 62.8 msec MV V2 mean: 46.9 cm/sec MV dec slope: 391.0 cm/sec2 MV mean P.1 mmHg MV V2 VTI: 15.1 cm MVA(P1/2t): 3.5 cm2 Ao V2 max: 111.4 cm/sec AI max dali: 449.9 cm/sec LV V1 max: 83.7 cm/sec Ao max P.0 mmHg AI max P.0 mmHg LV V1 max P.8 mmHg Ao V2 mean: 81.2 cm/sec AI dec slope: 268.5 cm/sec2 LV V1 mean P.5 mmHg Ao mean P.9 mmHg AI P1/2t: 490.7 msec LV V1 mean: 57.4 cm/sec Ao V2 VTI: 21.9 cm LV V1 VTI: 16.1 cm AV (velocity ratio): 0.74 MR max dali: 571.2 cm/sec PA V2 max: 64.8 cm/sec TR max dali: 211.7 cm/sec MR max P.5 mmHg TR max P.9 mmHg MR mean dali: 427.6 cm/sec MR mean P.0 mmHg MR VTI: 185.6 cm ECHO/Echo Complete Interpretation Summary Normal LV size. Left ventricular systolic function is normal. The left ventricular ejection fraction is 55 %. Small (<1.0 cm) pericardial effusion. Mild (1+) eccentric mitral valve insufficiency. Moderately dilated aortic root.Measures approximately 5.3 cm in the widest dimension. Mild concentric left ventricular hypertrophy. Ordering Physician: Matilde Correia Referring Physician: Matilde oCrreia Performed By: Iain Vega RCS 04/02/25 1450 Date Lucho Crowley MD CC: Dr. Ulysses Spencer MD; FRANC Aguilar Date Dictated: 04/02/25 1254 Date Transcribed: 04/02/25 1440 [employer] Maker: Signed Normal [facility] Echocardiogram study reportO rdered By: Lucho Crowley on 04-02-2025 Study report [facility] [place] [address] Echo Complete 04/02/25 1254 MR#: [id number] Acct: [id number] Name: ASHLEY CREWS Rep #:[id number] : 1945 79 From: Lucho Root Attending Dr: FRANC Aguilar Status: REG CLI Ordering Dr: Matilde Correia Date: 04/02/25 Location: [facility] Sex: F C Admitted: Reason For Study : CHF Procedure This was a 2D Doppler, Color Flow transthoracic echocardiogram. Exam performed in department. Left Ventricle Normal LV size. Mild concentric left ventricular hypertrophy. Left ventricular systolic function is normal. The left ventricular ejection fraction is 55 %. No regional wall motion abnormalities noted. Right Ventricle Normal RV size. Normal systolic function. Atria Normal left atrium. Normal right atrium. Mitral Valve Normal mitral valve. Mild (1+) eccentric mitral valve insufficiency. Tricuspid Valve Normal tricuspid valve. Mild tricuspid valve insufficiency. Pulmonary artery systolic pressure is 20 mmHg. Aortic Valve Trisinus/trileaflet aortic valve. Mild (1+) aortic valve insufficiency. Pulmonic Valve Normal pulmonic valve. Great Vessels Moderately dilated aortic root. The pulmonary artery is normal size. Inferior vena cava collapse with respiration. Pericardium/Pleural Small (<1.0 cm) pericardial effusion. MMode/2D Measurements & Calculations LVIDd: 4.2 cm IVSd: 1.2 cm Ao root diam: 5.3 cm LVIDs: 2.8 cm LVPWd: 1.4 cm RVDd: 3.5 cm FS: 33.5 % asc Aorta Diam: 4.6 cm LAV(MOD-bp): 57.7 ml LVAd ap4: 23.4 cm2 LAV(MOD-bp) Indexed: 36.6 ml/m2 LVLd ap4: 5.9 cm LAV(MOD-sp2): 55.3 ml EDV(MOD-sp4): 75.3 ml LAV(MOD-sp4): 54.9 ml EDV(sp4-el): 78.3 ml LVAs ap4: 14.1 cm2 LVLs ap4: 5.4 cm ESV(MOD-sp4): 31.1 ml ESV(sp4-el): 31.6 ml EF(MOD-sp4): 58.8 % EF(sp4-el): 59.7 % SV(MOD-sp4): 44.3 ml SV(sp4-el): 46.7 ml Ao sinus diam: 3.2 cm SI(MOD-sp4): 28.0 ml/m2 Ao ST Junction: 2.8 cm LA A4 area: 19.3 cm2 LA dimension(2D): 3.9 cm RA A4 area: 16.0 cm2 Doppler Measurements & Calculations MV E max dali: 63.7 cm/sec MV V2 max: 84.7 cm/sec MVP1/2t max dali: 83.8 cm/sec MV max P.9 mmHg MVP1/2t: 62.8 msec MV V2 mean: 46.9 cm/sec MVdec slope: 391.0 cm/sec2 MV mean P.1 mmHg MV V2 VTI: 15.1 cm MVA(P1/2t): 3.5 cm2 Ao V2 max: 111.4 cm/sec AI max dali: 449.9 cm/sec LVV1 max: 83.7 cm/sec Ao max P.0 mmHg AI max P.0 mmHg LVV1 max P.8 mmHg Ao V2 mean: 81.2 cm/sec AI dec slope: 268.5 cm/sec2 LVV1 mean P.5 mmHg Ao mean P.9 mmHg AI P1/2t: 490.7 msec LVV1 mean: 57.4 cm/sec Ao V2 VTI: 21.9 cm LVV1 VTI: 16.1 cm AV (velocity ratio): 0.74 MR max dali: 571.2 cm/sec PA V2 max: 64.8 cm/sec TRmax dali: 211.7 cm/sec MR max P.5 mmHg TRmax P.9 mmHg MR mean dali: 427.6 cm/sec MR mean P.0 mmHg MR VTI: 185.6 cm ECHO/Echo Complete Interpretation Summary Normal LV size. Left ventricular systolic function is normal. The left ventricular ejection fraction is 55 %. Small (<1.0 cm) pericardial effusion. Mild (1+) eccentric mitral valve insufficiency. Moderately dilated aortic root.Measures approximately 5.3 cm in the widest dimension. Mild concentric left ventricular hypertrophy. Ordering Physician: Matilde Correia Referring Physician: Matilde Correia Performed By: Iain Vega RCS 04/02/25 1450 Date _ Lucho Crowley MD CC: Dr. Ulysses Spencer MD; FRANC Aguilar ~ Date Dictated: 04/02/25 1254 Date Transcribed: 04/02/25 1440 [employer] Maker: Signed [facility] Work Phone: CTA Chest W/WO Contraston CTA Chest W/WO Contrast [facility] Imaging Services [address] [place] [address] CTA Chest W/WO Contrast MR#: [id number] Acct: [id number] Name: ASHLEY CREWS Rep #: [id number] : 1945 F 79 From: Enio Booker MD PCP: Dr. Ulysses Spencer MD Status: REG CLI Study: CTA Chest W/WO Contrast Date of Exam: 03/18/25 Exam# [id number] Ordering Dr: Matilde Correia PROCEDURE: CTA CHEST W/WO CONTRAST 03/18/2025 REASON FOR EXAM: KNOWN TAA TECHNIQUE: CTA CHEST W/WO CONTRAST Multiplanar Sagittal and Coronal images were obtained. CONTRAST: Isovue 370 VOLUME: 75 mL One or more dose reduction techniques were used (e.g., Automated exposure control, adjustment of the mA and/or kV according to patient size, use of iterative reconstruction technique). RADIATION DOSE SUMMARY: CTDlvol: 14 mGy DLP: 193 mGycm COMPARISON: No FINDINGS: Unremarkable base of neck and axilla. Thoracic spine scoliosis and degeneration. Normal esophagus. Cardiac enlargement. Small pericardial effusion. No central pulmonary embolism. Dilated ascending aorta, measuring 5.1 x 5.3 cm maximum cross-section. Proximal arch measures up to 5 cm. Distal arch measures up to 3.6 cm. The descending thoracic aorta is nondilated. At the thoracoabdominal junction, aorta measures 2.8 x 3.2 cm, borderline prominent. No significant calcified plaque. No dissection. No acute chest wall findings. No acute upper abdominal findings. Central airways are patent. Basilar atelectasis. No consolidation, effusion, or pneumothorax. CT/CTA Chest W/WO Contrast IMPRESSION: Ascending aortic aneurysm, measuring 5.1 x 5.3 cm maximum cross-section. No dissection. No acute chest findings. Reading Location: [place] [address] CC: Dr. Ulysses Spencer MD; FRANC Aguilar S[employer] Har[employer] Maker: Signed Normal [facility] Cardiology Visit Reporton Cardiology Visit Report [facility] [address] [place] [address] OFFICE VISIT Date of Service: 02/20/25 MR#: [id number] Acct: [id number] Name: ASHLEY CREWS Rep #: [id number] : 1945 Provider: FRANC Fair Age/Sex: 79/F Location: [facility] [place] [facility] Status: Signed HPI HPI History of Present Illness Details: Ashley Crews is an 79-year-old lady with persistent atrial fibrillation. Echocardiogram was in 2017 and at that time demonstrated preserved ejection fraction. She established with us in 2022. Echocardiogram done which demonstrated an EF of 40% and a moderate pleural effusion. We increase her metoprolol and added lasix. Stress test in 01/2024 was negative for ischemia. From a cardiac standpoint, patient is doing well. She does not have any chest discomfort/heaviness /tightness. She does not have any worsening symptoms of shortness of breath. She does not have any orthopnea. She denies PND. She does not have any symptoms of congestive heart failure. She does not have any palpitations that she is aware of. She does not have any lightheadedness or dizziness. She does not have any near-syncope or syncope. She does not have any lower extremity edema. She does not have any symptoms of claudication. She has not had any more falls. She did not schedule her echo and chest CT. Intake Vital Signs 01/06/25 08:08 02/20/25 07:15 Height 5 ft 5 ft Weight: 130 lb 127 lb BMI 25.4 24.7 BP 154/90 H 104/69 Blood Pressure Location Lt brachial Lt brachial Position Sitting Sitting Respiration 16 18 Pulse 75 86 Pulse Source NIBP Monitor Pulse Oximetry (%) 99 Intake Visit Reasons: 6 WK FU Informatics Spec Required: No Is patient in pain?: No Allergies No Known Allergies Allergy (Unverified 02/20/25 12:58) Medications ???Medication ???Instructions ???Recorded ???Confirmed ???Type apixaban 5 mg tablet (Eliquis) 5 mg PO BID 08/13/23 02/20/25 Hist ory digoxin 125 mcg (0.125 mg) tablet 125 mcg PO DAILY #30 tabs 4 02/20/25 Rx metoprolol tartrate 50 mg tablet 50 mg PO BID #180 tabs 03/13/24 Rx cholecalciferol (vitamin D3) 50 50 mcg PO DAILY 05/02/24 02/20/25 History mcg (2,000 unit) capsule furosemide 40 mg tablet (Lasix) 40 mg PO DAILY #90 tabs 12/18/24 0 02/20/25 Rx rosuvastatin 5 mg tablet (Crestor) 5 mg PO DAILY #90 tabs 12/18/24 02/20/25 Rx Ejection fraction %: 40 Have you fallen in the past year?: Yes PFSH Medical History Essential hypertension Thoracic aortic aneurysm (TAA) Longstanding persistent atrial fibrillation Pericardial effusion Cardiomyopathy Afib Tachycardia Post menopausal problems Non-smoker Surgical History s/p dental extraction S/P cataract extraction Family History Mother Diabetes Heart disease Hypertension CVA (cerebral vascular accident) Thyroid disorder Father Heart disease Brother CAD (coronary artery disease) Social History Smoking Status: Never smoker alcohol intake: current alcohol intake frequency: holidays/special occasions only substance use type: does not use caffeine: Yes Type: carbonated beverages Number of servings: 1 and coffee ROS Const Const: Positive for fatigue; Negative for weakness, headache(s) or frequent falls Eyes Eyes: Negative for blurry vision ENT ENT: Negative for headache(s), dizziness or Nosebleed/epistaxis Cardio Chest Pain: No Palpitations: No Edema: None Muscle aches with walking: None Resp Respiratory: Positive for SOB with activity and SOB at rest; Negative for SOB orthopnea SOB lying down GI GI: Negative nausea, vomiting, heartburn, bright, red blood in stools or black,tarry stools : Negative for hematuria Neuro Neuro: Negative for dizziness, lightheadedness, near syncope, syncope, frequent falls, headache(s), weakness or blurry vision Endo Endo: Positive for fatigue Cardiology Exam Const Appearance: cooperative, no acute distress and well developed Orientation: alert, awake and oriented x3 Head Head: normocephalic and atraumatic Mouth: moist mucous membranes Eyes General: appearance normal, both eyes and all related structures Conjunctivae: conjunctivae normal Pupils: PERRL EOM: EOM intact bilaterally Neck Neck: normal visual inspection, no lymphadenopathy and no JVD Carotids: Negative bruit Neck Mass: Negative Neck mass Chest Chest inspection: normal inspection of the chest and symmetric chest movement Auscultation: Bilateral: Clear to Auscultation Cardio Palpation: normal PMI Rhythm: irregularly irregular Heart sounds: S1 normal and S2 normal; Negative rub, gallop or murmur GI GI: (more content not included)... Normal [facility] Cardiology Visit Reporton Cardiology Visit Report [facility] [address] [place] [address] OFFICE VISIT Date of Service: 01/06/25 MR#: [id number] Acct: [id number] Name: ASHLEY CREWS Rep #: [id number] : 1945 Provider: FRANC Fair Age/Sex: 79/F Location: [facility] [place] Status: Signed HPI HPI History of Present Illness Details: Ashley Crews is an 79-year-old lady with persistent atrial fibrillation. Echocardiogram was in 2017 and at that time demonstrated preserved ejection fraction. She established with us in 2022. Echocardiogram done which demonstrated an EF of 40% and a moderate pleural effusion. We increase her metoprolol and added lasix. Stress testin 01/2024 was negative for ischemia. From a cardiac standpoint, patient is doing well. She does not have any chest discomfort/heaviness /tightness. She does not have any worsening symptoms of shortness of breath. She does not have any orthopnea. She denies PND. She does not have any symptoms of congestive heart failure. She does not have any palpitations that she is aware of. She does not have any lightheadedness or dizziness. She does not have any near-syncope or syncope. She does not have any lower extremity edema. She does not have any symptoms of claudication. Did discuss her living by herself with her recent falls. Encouraged her to use her medical alert as she lives by herself and no one checks on her routinely. Intake Vital Signs 05/02/24 13:19 01/06/25 08:08 Height 5 ft 5 ft Weight: 130 lb BMI 25.4 BP 154/90 H Blood Pressure Location Lt brachial Position Sitting Respiration 16 Pulse 75 Pulse Source NIBP Intake Visit Reasons: 6 M FU Informatics Spec Required: No Is patient in pain?: No Allergies No Known Allergies Allergy (Unverified 01/06/25 08:13) Medications ???Medication ???Instructions ???Recorded ???Confirmed ???Type apixaban 5 mg tablet (Eliquis) 5 mg PO BID 08/13/23 01/06/25 Hist ory digoxin 125 mcg (0.125 mg) tablet 125 mcg PO DAILY #30 tabs 4 01/06/25 Rx metoprolol tartrate 50 mg tablet 50 mg PO BID #180 tabs 03/13/24 Rx cholecalciferol (vitamin D3) 50 50 mcg PO DAILY 05/02/24 01/06/25 History mcg (2,000 unit) capsule furosemide 40 mg tablet (Lasix) 40 mg PO DAILY #90 tabs 12/18/24 0 01/06/25 Rx rosuvastatin 5 mg tablet (Crestor) 5 mg PO DAILY #90 tabs 12/18/24 01/06/25 Rx Ejection fraction %: 40 Have you fallen in the past year?: Yes (Lost balance and fell into tub) PFSH Medical History Essential hypertension Thoracic aortic aneurysm (TAA) Longstanding persistent atrial fibrillation Pericardial effusion Cardiomyopathy Afib Tachycardia Post menopausal problems Non-smoker Surgical History s/p dental extraction S/P cataract extraction Family History Mother Diabetes Heart disease Hypertension CVA (cerebral vascular accident) Thyroid disorder Father Heart disease Brother CAD (coronary artery disease) Social History Smoking Status: Never smoker alcohol intake: current alcohol intake frequency: holidays/special occasions only substance use type: does not use caffeine: Yes Type: carbonated beverages Number of servings: 1 and coffee ROS Const Const: Positive for fatigue (Feels tired alot-unchanged from previous); Negative for weakness Eyes Eyes: Negative for change in vision ENT ENT: Negative for dizziness or balance problems Cardio Chest Pain: No Palpitations: No Edema: Bilateral (Occasionally) Resp Respiratory: Positive for SOB with activity; Negative for SOB at rest or SOB orthopnea SOB lying down GI GI: Negative nausea or heartburn Musc Musc: Negative for balance problems Neuro Neuro: Negative for dizziness, lightheadedness, near syncope, syncope or weakness Endo Endo: Positive for fatigue (Feels tired alot-unchanged from previous) Cardiology Exam Const Appearance: cooperative, no acute distress and well developed Orientation: alert, awake and oriented x3 Head Head: normocephalic and atraumatic Mouth: moist mucous membranes Eyes General: appearance normal, both eyes and all related structures Conjunctivae: conjunctivae normal Pupils: PERRL EOM: EOM intact bilaterally Neck Neck: normal visual inspection, no lymphadenopathy and no JVD Carotids: Negative bruit Neck Mass: Negative Neck mass Chest Chest inspection: normal inspection of the chest and symmetric chest movement Auscultation: Bilateral: Clear to Auscultation Cardio Palpation: normal PMI Rhythm: irregularly irregular Heart sounds: S1 normal and S2 normal; Negative rub, gallop or murmur GI GI: normal to inspection, soft, no hepatos (more content not included)... Normal [facility] Absolute lymphocyte countOrd ered By: Ulysses Spencer on 12-27-2023 Lymphocytes Auto (Unsp spec) [#/Vol] 1.24 10*3/uL 0.83-4.51 [facility] Automated lymphocyte count a s percentage of total leukocytesOrdered By: Ulysses Spencer on 12-27-2023 Lymphocytes/100 WBC Auto (Unsp spec) 21.4 % 19-41 [facility] Basophil percentageOrdered B y: Ulysses Spencer on 12-27-2023 Basophils/100 WBC (Bld) 0.9 % 0-1 [facility] Bilirubin [Mass/Vol] 0.70 mg/dL 0.20-1.00 [facility] Comment on above: For patients on eltr ombopag therapy, use of Dimension Amlin TBIL is not recommended. Chloride [Moles/Vol] 107 mmol/L 98-107 [facility] Eosinophils/100 WBC (Bld) 0.7 % 0-5 [facility] Glucose [Mass/Vol] 91 mg/dL 74-106 [facility] Hemoglobin (Bld) [Mass/Vol] 11.9 g/dL 12.0-15.0 [facility] Monocytes/100 WBC (Bld) 7.4 % 0-10 [facility] Neutrophils (Bld) [#/Vol] 4.0 10*3/uL 2.0-7.7 [facility] Neutrophils/100 WBC (Bld) 69.4 % 47-70 [facility] Potassium [Moles/Vol] 3.6 mmol/L 3.5-5.1 [facility] Protein [Mass/Vol] 7.3 g/dL 6.4-8.2 [facility] Sodium [Moles/Vol] 141 mmol/L 136-145 [facility] WBC (Bld) [#/Vol] 5.8 10*3/uL 4.4-11.0 [facility] Determination of erythrocyte mean corpuscular volume (MCV)Ordered By: Ulysses Spencer on 12-27-2023 MCV (RBC) [Entitic vol] 94.9 fL 81-99 [facility] Erythrocyte distribution wid th ratioOrdered By: Ulysses Spencer on 12-27-2023 Erythrocyte distribution width (RBC) [Ratio] 15.0 % 11.6-14.6 [facility] Erythrocyte distribution wid th standard deviationOrdered By: Ulysses Spencer on 12-27-2023 Erythrocyte distribution width (RBC) [Entitic vol] 52.7 fL 35.1-43.9 [facility] Hematocrit Auto (Bld) [Volum e fraction]Ordered By: Ulysses Spencer on 12-27-2023 Hematocrit (Bld) [Volume fraction] 37.4 % 37-47 [facility] Immature granulocytes/100 WB C Auto (Bld)Ordered By: Ulysses Spencer on 12-27-2023 Immature granulocytes/100 WBC (Bld) 0.200 % 0.0-0.9 [facility] Comment on above: IG% - Immature Granu locytes (promyelocytes, myelocytes and metamyelocytes) > 1% indicates that a LEFT SHIFT is Present. Laboratory - Chemistry and C hemistry - challengeOrdered By: Ulysses Spencer on 12-27-2023 Albumin/Globulin [Mass ratio] 1.0 {ratio} 0.9-2.4 [facility] ALP [Catalytic activity/Vol] 78 U/L 45-117 [facility] ALT [Catalytic activity/Vol] 24 U/L 13-56 [facility] CO2 [Moles/Vol] 30.0 mmol/L 21.0-32.0 [facility] Globulin (S) [Mass/Vol] 3.6 g/dL 2.2-4.2 [facility] Magnesium [Mass/Vol] 2.1 mg/dL 1.6-2.6 [facility] Urea nitrogen/Creatinine [Mass ratio] 18.9 mg/mg 10-20 [facility] Laboratory - Hematology and Cell countsOrdered By: Ulysses Spencer on 12-27-2023 MCH (RBC) [Entitic mass] 30.2 pg 27.0-32.0 [facility] MCHC (RBC) [Mass/Vol] 31.8 g/dL 32-36 [facility] Nucleated RBC/100 WBC (Bld) [Ratio] 0 % 0-5 [facility] Platelet mean volume (Bld) [Entitic vol] 11.0 fL 6.2-12.0 [facility] Platelets (Bld) [#/Vol] 193 10*3/uL 150-450 [facility] No Panel InformationOrdered By: Ulysses Spencer on 12-27-2023 Digoxin Level 0.41 ng/mL 0.80-2.00 [facility] Estimated GFR (MDRD) Amer 61 mL/min >60 [facility] Comment on above: GFR Calc Estimated GFR (MDRD) Non-Af Amer 50 mL/min >60 [facility] Comment on above: Non- GFR Calc RBC Auto (Bld) [#/Vol]Ordere d By: Ulysses Spencer on 12-27-2023 RBC (Bld) [#/Vol] 3.94 10*6/uL 4.2-5.4 [facility] Serum or plasma calcium kenny urement (mass/volume)Ordered By: Ulysses Spencer on 12-27-2023 Calcium [Mass/Vol] 8.9 mg/dL 8.5-10.1 [facility] Serum or plasma creatinine m easurement (mass/volume)Ordered By: Ulysses Spencer on 12-27-2023 Creatinine [Mass/Vol] 1.11 mg/dL 0.55-1.02 [facility] Comment on above: The validity of the calculated GFR & GFRAA in patients over 70 years has not been determined. Clinical correlation is essential. Serum or plasma urea nitroge n measurement (mass/volume)Ordered By: Ulysses Spencer on 12-27-2023 Urea nitrogen [Mass/Vol] 21 mg/dL 7-18 [facility] Thin prep Papanicolaou smear with manual screeningOrdered By: Ulysses Spencer on 12-27-2023 Thin prep Papanicolaou smear with manual screening 3.7 g/dL 3.2-5.0 [facility] Thin prep Papanicolaou smear with manual screening 23 U/L 15-37 [facility] Thin prep Papanicolaou smear with manual screening 4 5-15 [facility] .Auto Diffon 12-18-2023 Basophil, Absolute 0.1 10 3/mcL Normal 0.0-0.2 [facility] ([place]) Comment on above: Performed By: #### T GAYATHRI #### [address] [address] Basophils/100 WBC (Bld) 1.2 % Normal 0.0-2.5 [facility] ([place]) Comment on above: Performed By: #### T GAYATHRI #### [address] [address] Eosinophil, Absolute 0.1 10 3/mcL Normal 0.0-0.4 [facility] ([place]) Comment on above: Performed By: #### T GAYATHRI #### [address] [address] Eosinophils/100 WBC (Bld) 1.6 % Normal 0.0-7.0 [facility] ([place]) Comment on above: Performed By: #### T GAYATHRI #### [address] [address] Lymphocyte, Absolute 1.8 10 3/mcL Normal 0.8-3.9 [facility] ([place]) Comment on above: Performed By: #### T GAYATHRI #### [address] [address] Lymphocytes/100 WBC (Bld) 33.9 % Normal 10.0-50.0 [facility] ([place]) Comment on above: Performed By: #### T GAYATHRI #### [address] [address] Monocyte, Absolute 0.3 10 3/mcL Normal 0.2-1.0 [facility] ([place]) Comment on above: Performed By: #### T GAYATHRI #### [place] [address] [address] Monocytes/100 WBC (Bld) 4.7 % Normal 1.7-13.0 [facility] ([place]) Comment on above: Performed By: #### T GAYATHRI #### [place] [address] [address] Neutrophils/100 WBC (Bld) 58.6 % Normal 37.0-80.0 [facility] ([place]) Comment on above: Performed By: #### T GAYATHRI #### [address] [address] .GFRon 12-18-2023 GFR Non- 46 ml/min/1.73sqm Normal [facility] ([place]) Comment on above: Result Comment: GFR Population mean for , Non- Americans Ages 20-29 = 116 mL/min/1.73 sq.m. Ages 30-39 = 107 mL/min/1.73 sq.m. Ages 40-49 = 99 mL/min/1.73 sq.m. Ages 50-59 = 93 mL/min/1.73 sq.m. Ages 60-69 = 85 mL/min/1.73 sq.m. Ages 70+ = 75 mL/min/1.73 sq.m. Chronic Kidney Disease: Less than 60 mL/min/1.73 square meters End Stage Renal Disease: Less than 15 mL/min/1.73 square meters Performed By: #### T GAYATHRI #### [address] [address] GFR 56 ml/min/1.73sqm Normal [facility] ([place]) Comment on above: Result Comment: GFR Population mean for , Non- Americans Ages 20-29 = 116 mL/min/1.73 sq.m. Ages 30-39 = 107 mL/min/1.73 sq.m. Ages 40-49 = 99 mL/min/1.73 sq.m. Ages 50-59 = 93 mL/min/1.73 sq.m. Ages 60-69 = 85 mL/min/1.73 sq.m. Ages 70+ = 75 mL/min/1.73 sq.m. Chronic Kidney Disease: Less than 60 mL/min/1.73 square meters End Stage Renal Disease: Less than 15 mL/min/1.73 square meters Performed By: #### T GAYATHRI #### [address] [address] .NEUABSon 12-18-2023 Neutrophil, Absolute 3.2 10 3/mcL Normal 2.9-6.2 [facility] ([place]) Comment on above: Performed By: #### Zander TRINH #### [address] [address] BMPon 12-18-2023 BUN/Creatinine Ratio 21 ratio Normal 7-27 [facility] ([place]) Comment on above: Performed By: #### Zander TRINH #### [address] [address] Calcium [Mass/Vol] 8.5 mg/dL Normal 8.4-10.2 [facility] ([place]) Comment on above: Performed By: #### T GAYATHRI #### [address] [address] Chloride [Moles/Vol] 109 mmol/L High 98-107 [facility] ([place]) Comment on above: Performed By: #### T GAYATHRI #### [address] [address] CO2 [Moles/Vol] 30 mmol/L Normal 23-31 [facility] ([place]) Comment on above: Performed By: #### T GAYATHRI #### [address] [address] Creatinine [Mass/Vol] 1.13 mg/dL High 0.55-1.02 [facility] ([place]) Comment on above: Performed By: #### Zander TRINH #### [address] [address] Electrolyte Balance 6.0 mEq/L Normal 4.0-15.0 [facility] ([place]) Comment on above: Performed By: #### T GAYATHRI #### [address] [address] Glucose [Mass/Vol] 93 mg/dL Normal 83-110 [facility] ([place]) Comment on above: Performed By: #### T GAYATHRI #### [address] [address] Potassium [Moles/Vol] 4.2 mmol/L Normal 3.5-5.1 [facility] ([place]) Comment on above: Performed By: #### T GAYATHRI #### [address] [address] Sodium [Moles/Vol] 145 mmol/L Normal 136-145 [facility] ([place]) Comment on above: Performed By: #### T GAYATHRI #### [address] [address] Urea nitrogen [Mass/Vol] 24 mg/dL High 7-18 [facility] ([place]) Comment on above: Performed By: #### T GAYATHRI #### [address] [address] CBCon 12-18-2023 Erythrocyte distribution width (RBC) [Ratio] 15.1 % High 11.5-14.5 [facility] ([place]) Comment on above: Performed By: #### C BC, BMP, FT4, ADIFF, GFR, MG, ANEU #### [address] [address] Hematocrit (Bld) [Volume fraction] 32.3 % Low 37.0-47.0 [facility] ([place]) Comment on above: Performed By: #### C BC, BMP, FT4, ADIFF, GFR, MG, ANEU #### [address] [address] Hgb 11.1 G/dL Low 12.0-16.0 [facility] ([place]) Comment on above: Performed By: #### C BC, BMP, FT4, ADIFF, GFR, MG, ANEU #### [address] [address] MCH (RBC) [Entitic mass] 31.5 pg High 27.0-31.2 [facility] ([place]) Comment on above: Performed By: #### C BC, BMP, FT4, ADIFF, GFR, MG, ANEU #### [address] [address] MCHC 34.4 G/dL Normal 33.0-37.0 [facility] ([place]) Comment on above: Performed By: #### C BC, BMP, FT4, ADIFF, GFR, MG, ANEU #### [address] [address] MCV (RBC) [Entitic vol] 91.5 fL Normal 80.0-94.0 [facility] ([place]) Comment on above: Performed By: #### C BC, BMP, FT4, ADIFF, GFR, MG, ANEU #### [address] [address] Platelet 145 10 3/mcL Normal 130-400 [facility] ([place]) Comment on above: Performed By: #### C BC, BMP, FT4, ADIFF, GFR, MG, ANEU #### [address] [address] Platelet mean volume (Bld) [Entitic vol] 8.7 fL Normal 7.4-10.4 [facility] ([place]) Comment on above: Performed By: #### C BC, BMP, FT4, ADIFF, GFR, MG, ANEU #### [address] [address] RBC 3.53 10 6/mcL Low 4.20-5.40 [facility] ([place]) Comment on above: Performed By: #### C BC, BMP, FT4, ADIFF, GFR, MG, ANEU #### [address] [address] WBC 5.4 10 3/mcL Normal 4.6-10.8 [facility] ([place]) Comment on above: Performed By: #### C BC, BMP, FT4, ADIFF, GFR, MG, ANEU #### [place] [id number] [place], [place] [address] CT THORAX W/ CONTRASTon 040 CT THORAX W/ CONTRAST ORIGINAL EXAMINATION: CT OF THE CHEST WITH CONTRAST 12/18/2023 9:44 am TECHNIQUE: CT of the chest was performed with the administration of intravenous contrast. Multiplanar reformatted images are provided for review. Automated exposure control, iterative reconstruction, and/or weight based adjustment of the mA/kV was utilized to reduce the radiation dose to as low as reasonably achievable. COMPARISON: Chest x-ray 12/17/2023 HISTORY: ORDERING SYSTEM PROVIDED HISTORY: Reason for Exam: RML lung density FINDINGS: The heart is moderately enlarged. No pericardial thickening. Small to moderate pericardial effusion. Coronary atherosclerosis. The main pulmonary artery is normal in caliber. 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 The descending aorta is nonaneurysmal. Mild atherosclerosis of the aorta. The thyroid is unremarkable. No axillary, supraclavicular, mediastinal, or hilar adenopathy. No endotracheal or endobronchial lesion. No pneumothorax. Trace bilateral pleural effusions with adjacent atelectasis. No focal consolidation. No suspicious pulmonary nodule. The visualized upper abdomen is noncontributory. No acute osseous abnormality. Degenerative changes of the spine. IMPRESSION: No focal consolidation. Overlapping right lower lobe pulmonary vasculature and cardiomegaly appear to correlate with the previously noted chest x-ray finding. 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 Trace bilateral pleural effusions with associated atelectasis. Small to moderate pericardial effusion. I have personally reviewed the images of this examination and agree with the resident's findings and interpretation. Interpreted by: Murphy Lyons MD Preliminary Report By: Jaciel Crook Electronically signed By Murphy Lyons MD Dictated Date: 12/18/2023 9:53:58 AM Prelim Date: 12/18/2023 3:15:32 PM Sign Date: 12/18/2023 3:15:32 PM Ordering Provider: SANTIAGO KAHN Normal [facility] ([place]) FT4on 12-18-2023 Free T4 [Mass/Vol] 1.18 ng/dL Normal 0.76-1.46 [facility] ([place]) Comment on above: Performed By: #### T [facility] #### [facility] [address] [place], [place] [address] LABORATORYOrdered By: SYSTEM SYSTEM on 12-18-2023 Basophil, Absolute 0.1 103/mcL Normal 0.0 - 0.2 10^3/mcL AO Workflow SS Basophils/100 WBC (Bld) 1.2 % Normal 0.0 - 2.5 % AO Workflow SS Calcium [Mass/Vol] 8.5 mg/dL Normal 8.4 - 10. 2 mg/dL AO ADM SS Chloride [Moles/Vol] 109 mmol/L High 98 - 10 7 mmol/L AO ADM SS CO2 [Moles/Vol] 30 mmol/L Normal 23 - 31 mmol/L AO ADM SS Creatinine [Mass/Vol] 1.13 mg/dL High 0.55 - 1.02 mg/dL AO ADM SS Electrolyte Balance 6.0 mEq/L Normal 4.0 - 15 .0 mEq/L AO ADM SS Eosinophil, Absolute 0.1 103/mcL Normal 0.0 - 0 .4 10^3/mcL AO Workflow SS Eosinophils/100 WBC (Bld) 1.6 % Normal 0.0 - 7.0 % AO Workflow SS Erythrocyte distribution width (RBC) [Ratio] 15.1 % High 11.5 - 14.5 % AO Workflow SS Free T4 [Mass/Vol] 1.18 ng/dL Normal 0.76 - 1. 46 ng/dL AO ADM SS GFR/1.73 sq M.predicted among blacks MDRD (S/P/Bld) [Vol rate/Area] 56 ml/min/1.73sqm Invalid Interpretation Code AO Chemistry S Comment on above: Interpretive Data: GFR Population mean for , Non- Americans Ages 20-29 = 116 mL/min/1.73 sq.m. Ages 30-39 = 107 mL/min/1.73 sq.m. Ages 40-49 = 99 mL/min/1.73 sq.m. Ages 50-59 = 93 mL/min/1.73 sq.m. Ages 60-69 = 85 mL/min/1.73 sq.m. Ages 70+ = 75 mL/min/1.73 sq.m. Chronic Kidney Disease: Less than 60 mL/min/1.73 square meters End Stage Renal Disease: Less than 15 mL/min/1.73 square meters GFR/1.73 sq M.predicted among non-blacks MDRD (S/P/Bld) [Vol rate/Area] 46 ml/min/1.73sqm Invalid Interpretation Code AO Chemistry S Comment on above: Interpretive Data: GFR Population mean for , Non- Americans Ages 20-29 = 116 mL/min/1.73 sq.m. Ages 30-39 = 107 mL/min/1.73 sq.m. Ages 40-49 = 99 mL/min/1.73 sq.m. Ages 50-59 = 93 mL/min/1.73 sq.m. Ages 60-69 = 85 mL/min/1.73 sq.m. Ages 70+ = 75 mL/min/1.73 sq.m. Chronic Kidney Disease: Less than 60 mL/min/1.73 square meters End Stage Renal Disease: Less than 15 mL/min/1.73 square meters Glucose [Mass/Vol] 93 mg/dL Normal 83 - 110 mg/dL AO ADM SS Hematocrit (Bld) [Volume fraction] 32.3 % Low 37.0 - 47.0 % AO Workflow SS Hemoglobin (Bld) [Mass/Vol] 11.1 G/dL Low 12.0 - 16.0 G/dL AO Workflow SS Lymphocyte, Absolute 1.8 103/mcL Normal 0.8 - 3 .9 10^3/mcL AO Workflow SS Lymphocytes/100 WBC (Bld) 33.9 % Normal 10.0 - 50.0 % AO Workflow SS Magnesium [Mass/Vol] 2.4 mg/dL Normal 1.8 - 2 .4 mg/dL AO ADM SS MCH (RBC) [Entitic mass] 31.5 pg High 27.0 - 31.2 pg AO Workflow SS MCHC 34.4 G/dL Normal 33.0 - 37.0 G/dL AO Workflow SS MCV (RBC) [Entitic vol] 91.5 fL Normal 80.0 - 94.0 fL AO Workflow SS Monocyte, Absolute 0.3 103/mcL Normal 0.2 - 1.0 10^3/mcL AO Workflow SS Monocytes/100 WBC (Bld) 4.7 % Normal 1.7 - 13.0 % AO Workflow SS Neutrophil, Absolute 3.2 103/mcL Normal 2.9 - 6 .2 10^3/mcL AO Workflow SS Neutrophils/100 WBC (Bld) 58.6 % Normal 37.0 - 80.0 % AO Workflow SS Platelet mean volume (Bld) [Entitic vol] 8.7 fL Normal 7.4 - 10.4 fL AO Workflow SS Platelets (Bld) [#/Vol] 145 103/mcL Normal 130 - 400 10^3/mcL AO Workflow SS Potassium [Moles/Vol] 4.2 mmol/L Normal 3.5 - 5.1 mmol/L AO ADM SS RBC (Bld) [#/Vol] 3.53 106/mcL Low 4.20 - 5.4 0 10^6/mcL AO Workflow SS Sodium [Moles/Vol] 145 mmol/L Normal 136 - 145 mmol/L AO ADM SS Urea nitrogen [Mass/Vol] 24 mg/dL High 7 - 18 mg/dL AO ADM SS Urea nitrogen/Creatinine [Mass ratio] 21 ratio Normal 7 - 27 ratio AO ADM SS WBC (Bld) [#/Vol] 5.4 103/mcL Normal 4.6 - 10.8 10^3/mcL AO Workflow SS MGon 12-18-2023 Magnesium [Mass/Vol] 2.4 mg/dL Normal 1.8-2.4 [facility] ([place]) Comment on above: Performed By: #### T MASOOD #### [place] [address] [address] TROPHSon 12-18-2023 High Sensitivity Troponin I 124 ng/L High 0-51 [facility] ([place]) Comment on above: Result Comment: High Sensitive Troponin I Reference Ranges: Female: 0-51 ng/L Male: 0-76 ng/L Testing performed on [employer] using a homogeneous sandwich chemiluminescent immunoassay based on [employer] technology. Performed By: #### T GAYATHRI #### [place] [address] [address] .Auto Diffon 12-17-2023 Basophil, Absolute 0.1 10 3/mcL Normal 0.0-0.2 [facility] ([place]) Comment on above: Performed By: #### B MP, CBC, TROPHS, ADIFF, GFR, ANEU, W #### [address] [address] Basophils/100 WBC (Bld) 1.1 % Normal 0.0-2.5 [facility] ([place]) Comment on above: Performed By: #### B MP, CBC, TROPHS, ADIFF, GFR, ANEU, MDW #### [address] [address] Eosinophil, Absolute 0.1 10 3/mcL Normal 0.0-0.4 [facility] ([place]) Comment on above: Performed By: #### B MP, CBC, TROPHS, ADIFF, GFR, ANEU, W #### [address] [address] Eosinophils/100 WBC (Bld) 1.4 % Normal 0.0-7.0 [facility] ([place]) Comment on above: Performed By: #### B MP, CBC, TROPHS, ADIFF, GFR, ANEU, MDW #### [address] [address] Lymphocyte, Absolute 1.8 10 3/mcL Normal 0.8-3.9 [facility] ([place]) Comment on above: Performed By: #### B MP, CBC, TROPHS, ADIFF, GFR, ANEU, MDW #### [address] [address] Lymphocytes/100 WBC (Bld) 25.8 % Normal 10.0-50.0 [facility] ([place]) Comment on above: Performed By: #### B MP, CBC, TROPHS, ADIFF, GFR, ANEU, W #### [address] [address] Monocyte, Absolute 0.6 10 3/mcL Normal 0.2-1.0 [facility] ([place]) Comment on above: Performed By: #### B MP, CBC, TROPHS, ADIFF, GFR, ANEU, W #### [address] [address] Monocytes/100 WBC (Bld) 8.6 % Normal 1.7-13.0 [facility] ([place]) Comment on above: Performed By: #### B MP, CBC, TROPHS, ADIFF, GFR, TANIYA JORDAN #### [place] [id number] [place], [place] [address] Neutrophils/100 WBC (Bld) 63.1 % Normal 37.0-80.0 [facility] ([place]) Comment on above: Performed By: #### B MP, CBC, TROPHS, ADIFF, GFR, TANIYA JORDAN #### [address] [address] .GFRon 12-17-2023 GFR 49 ml/min/1.73sqm Normal [facility] ([place]) Comment on above: Result Comment: GFR Population mean for , Non- Americans Ages 20-29 = 116 mL/min/1.73 sq.m. Ages 30-39 = 107 mL/min/1.73 sq.m. Ages 40-49 = 99 mL/min/1.73 sq.m. Ages 50-59 = 93 mL/min/1.73 sq.m. Ages 60-69 = 85 mL/min/1.73 sq.m. Ages 70+ = 75 mL/min/1.73 sq.m. Chronic Kidney Disease: Less than 60 mL/min/1.73 square meters End Stage Renal Disease: Less than 15 mL/min/1.73 square meters Performed By: #### B MP, CBC, TROPHS, ADIFF, GFR, TANIYA JORDAN #### [id number] [place], [place] [address] GFR Non- 40 ml/min/1.73sqm Normal [facility] ([place]) Comment on above: Result Comment: GFR Population mean for , Non- Americans Ages 20-29 = 116 mL/min/1.73 sq.m. Ages 30-39 = 107 mL/min/1.73 sq.m. Ages 40-49 = 99 mL/min/1.73 sq.m. Ages 50-59 = 93 mL/min/1.73 sq.m. Ages 60-69 = 85 mL/min/1.73 sq.m. Ages 70+ = 75 mL/min/1.73 sq.m. Chronic Kidney Disease: Less than 60 mL/min/1.73 square meters End Stage Renal Disease: Less than 15 mL/min/1.73 square meters Performed By: #### B MP, CBC, TROPHS, ADIFF, GFR, TANIYA JORDAN #### [address] [address] .MDWon 12-17-2023 Monocyte Distribution Width 20.93 High 0.00-20.00 [facility] ([place]) Comment on above: Result Comment: For adults in ED, MDW>20.0 may be associated with a higher risk of sepsis during the first 12hrs of hospital admission Performed By: #### B MP, CBC, TROPHS, ADIFF, GFR, TANIYA JORDAN #### [address] [address] .NEUABSon 12-17-2023 Neutrophil, Absolute 4.4 10 3/mcL Normal 2.9-6.2 [facility] ([place]) Comment on above: Performed By: #### B MP, CBC, TROPHS, ADIFF, GFR, TANIYA JORDAN #### [address] [address] BMPon 12-17-2023 BUN/Creatinine Ratio 16 ratio Normal 7-27 [facility] ([place]) Comment on above: Performed By: #### B MP, CBC, TROPHS, ADIFF, GFR, TANIYA JORDAN #### [address] [address] Calcium [Mass/Vol] 9.0 mg/dL Normal 8.4-10.2 [facility] ([place]) Comment on above: Performed By: #### B MP, CBC, TROPHS, ADIFF, GFR, TANIYA JORDAN #### [address] [address] Chloride [Moles/Vol] 102 mmol/L Normal 98-107 [facility] ([place]) Comment on above: Performed By: #### B MP, CBC, TROPHS, ADIFF, GFR, INKKI, TANIYA #### [address] [address] CO2 [Moles/Vol] 30 mmol/L Normal 23-31 [facility] ([place]) Comment on above: Performed By: #### B MP, CBC, TROPHS, ADIFF, GFR, NIKKI, W #### [address] [address] Creatinine [Mass/Vol] 1.28 mg/dL High 0.55-1.02 [facility] ([place]) Comment on above: Performed By: #### B MP, CBC, TROPHS, ADIFF, GFR, TANIYA JORDAN #### [address] [address] Electrolyte Balance 14.0 mEq/L Normal 4.0-15.0 [facility] ([place]) Comment on above: Performed By: #### B MP, CBC, TROPHS, ADIFF, GFR, TANIYA JORDAN #### [address] [address] Glucose [Mass/Vol] 113 mg/dL High 83-110 [facility] ([place]) Comment on above: Performed By: #### B MP, CBC, TROPHS, ADIFF, GFR, TANIYA JORDAN #### [address] [address] Potassium [Moles/Vol] 3.8 mmol/L Normal 3.5-5.1 [facility] ([place]) Comment on above: Performed By: #### B MP, CBC, TROPHS, ADIFF, GFR, TANIYA JORDAN #### [address] [address] Sodium [Moles/Vol] 146 mmol/L High 136-145 [facility] ([place]) Comment on above: Performed By: #### B MP, CBC, TROPHS, ADIFF, GFR, TANIYA JORDAN #### [address] [address] Urea nitrogen [Mass/Vol] 21 mg/dL High 7-18 [facility] ([place]) Comment on above: Performed By: #### B MP, CBC, TROPHS, ADIFF, GFR, TANIYA JORDAN #### [address] [address] CBCon 12-17-2023 Erythrocyte distribution width (RBC) [Ratio] 15.1 % High 11.5-14.5 [facility] ([place]) Comment on above: Performed By: #### B MP, CBC, TROPHS, ADIFF, GFR, TANIYA JORDAN #### [address] [address] Hematocrit (Bld) [Volume fraction] 38.1 % Normal 37.0-47.0 [facility] ([place]) Comment on above: Performed By: #### B MP, CBC, TROPHS, ADIFF, GFR, TANIYA JORDAN #### [address] [address] Hgb 12.9 G/dL Normal 12.0-16.0 [facility] ([place]) Comment on above: Performed By: #### B MP, CBC, TROPHS, ADIFF, GFR, TANIYA JORDAN #### [address] [address] MCH (RBC) [Entitic mass] 31.4 pg High 27.0-31.2 [facility] ([place]) Comment on above: Performed By: #### B MP, CBC, TROPHS, ADIFF, GFR, TANIYA JORDAN #### [place] [id number] MCHC 34.0 G/dL Normal 33.0-37.0 [facility] ([place]) Comment on above: Performed By: #### B MP, CBC, TROPHS, ADIFF, GFR, TANIYA JORDAN #### [address] [address] MCV (RBC) [Entitic vol] 92.4 fL Normal 80.0-94.0 [facility] ([place]) Comment on above: Performed By: #### B MP, CBC, TROPHS, ADIFF, GFR, TANIYA JORDAN #### [address] [address] Platelet 189 10 3/mcL Normal 130-400 [facility] ([place]) Comment on above: Performed By: #### B MP, CBC, TROPHS, ADIFF, GFR, TANIYA JORDAN #### [address] [address] Platelet mean volume (Bld) [Entitic vol] 8.5 fL Normal 7.4-10.4 [facility] ([place]) Comment on above: Performed By: #### B MP, CBC, TROPHS, ADIFF, GFR, TANIYA JORDAN #### [address] [address] RBC 4.12 10 6/mcL Low 4.20-5.40 [facility] ([place]) Comment on above: Performed By: #### B MP, CBC, TROPHS, ADIFF, GFR, TANIYA JORDAN #### [place] [address] [address] WBC 7.0 10 3/mcL Normal 4.6-10.8 [facility] ([place]) Comment on above: Performed By: #### B MP, CBC, TROPHS, ADIFF, GFR, TANIYA JORDAN #### [address] [address] LABORATORYOrdered By: SYSTEM SYSTEM on 12-17-2023 Troponin I.cardiac DL <= 0.01 ng/mL [Mass/Vol] 124 ng/L High 0 - 51 ng/L AO ADM SS Comment on above: Interpretive Data: H igh Sensitive Troponin I Reference Ranges: Female: 0-51 ng/L Male: 0-76 ng/L Testing performed on [employer] using a homogeneous sandwich chemiluminescent immunoassay based on [employer] technology. Troponin I.cardiac DL <= 0.01 ng/mL [Mass/Vol] 140 ng/L High 0 - 51 ng/L AO ADM SS Comment on above: Interpretive Data: H igh Sensitive Troponin I Reference Ranges: Female: 0-51 ng/L Male: 0-76 ng/L Testing performed on [employer] using a homogeneous sandwich chemiluminescent immunoassay based on [employer] technology. Basophil, Absolute 0.1 103/mcL Normal 0.0 - 0.2 10^3/mcL AO Workflow SS Basophils/100 WBC (Bld) 1.1 % Normal 0.0 - 2.5 % AO Workflow SS Calcium [Mass/Vol] 9.0 mg/dL Normal 8.4 - 10. 2 mg/dL AO ADM SS Chloride [Moles/Vol] 102 mmol/L Normal 98 - 10 7 mmol/L AO ADM SS CO2 [Moles/Vol] 30 mmol/L Normal 23 - 31 mmol/L AO ADM SS Creatinine [Mass/Vol] 1.28 mg/dL High 0.55 - 1.02 mg/dL AO ADM SS Electrolyte Balance 14.0 mEq/L Normal 4.0 - 15 .0 mEq/L AO ADM SS Eosinophil, Absolute 0.1 103/mcL Normal 0.0 - 0 .4 10^3/mcL AO Workflow SS Eosinophils/100 WBC (Bld) 1.4 % Normal 0.0 - 7.0 % AO Workflow SS Erythrocyte distribution width (RBC) [Ratio] 15.1 % High 11.5 - 14.5 % AO Workflow SS GFR/1.73 sq M.predicted among blacks MDRD (S/P/Bld) [Vol rate/Area] 49 ml/min/1.73sqm Invalid Interpretation Code AO Chemistry S Comment on above: Interpretive Data: GFR Population mean for , Non- Americans Ages 20-29 = 116 mL/min/1.73 sq.m. Ages 30-39 = 107 mL/min/1.73 sq.m. Ages 40-49 = 99 mL/min/1.73 sq.m. Ages 50-59 = 93 mL/min/1.73 sq.m. Ages 60-69 = 85 mL/min/1.73 sq.m. Ages 70+ = 75 mL/min/1.73 sq.m. Chronic Kidney Disease: Less than 60 mL/min/1.73 square meters End Stage Renal Disease: Less than 15 mL/min/1.73 square meters GFR/1.73 sq M.predicted among non-blacks MDRD (S/P/Bld) [Vol rate/Area] 40 ml/min/1.73sqm Invalid Interpretation Code AO Chemistry S Comment on above: Interpretive Data: GFR Population mean for , Non- Americans Ages 20-29 = 116 mL/min/1.73 sq.m. Ages 30-39 = 107 mL/min/1.73 sq.m. Ages 40-49 = 99 mL/min/1.73 sq.m. Ages 50-59 = 93 mL/min/1.73 sq.m. Ages 60-69 = 85 mL/min/1.73 sq.m. Ages 70+ = 75 mL/min/1.73 sq.m. Chronic Kidney Disease: Less than 60 mL/min/1.73 square meters End Stage Renal Disease: Less than 15 mL/min/1.73 square meters Glucose [Mass/Vol] 113 mg/dL High 83 - 110 mg/dL AO ADM SS Hematocrit (Bld) [Volume fraction] 38.1 % Normal 37.0 - 47.0 % AO Workflow SS Hemoglobin (Bld) [Mass/Vol] 12.9 G/dL Normal 12.0 - 16.0 G/dL AO Workflow SS Lymphocyte, Absolute 1.8 103/mcL Normal 0.8 - 3 .9 10^3/mcL AO Workflow SS Lymphocytes/100 WBC (Bld) 25.8 % Normal 10.0 - 50.0 % AO Workflow SS MCH (RBC) [Entitic mass] 31.4 pg High 27.0 - 31.2 pg AO Workflow SS MCHC 34.0 G/dL Normal 33.0 - 37.0 G/dL AO Workflow SS MCV (RBC) [Entitic vol] 92.4 fL Normal 80.0 - 94.0 fL AO Workflow SS Monocyte distribution width Auto (Bld) [Entitic vol] 20.93 1 High 0.00 - 20.00 AO Workflow SS Comment on above: Result Comment: For adults in ED, MDW>20.0 may be associated with a higher risk of sepsis during the first 12hrs of hospital admission Monocyte, Absolute 0.6 103/mcL Normal 0.2 - 1.0 10^3/mcL AO Workflow SS Monocytes/100 WBC (Bld) 8.6 % Normal 1.7 - 13.0 % AO Workflow SS Neutrophil, Absolute 4.4 103/mcL Normal 2.9 - 6 .2 10^3/mcL AO Workflow SS Neutrophils/100 WBC (Bld) 63.1 % Normal 37.0 - 80.0 % AO Workflow SS Platelet mean volume (Bld) [Entitic vol] 8.5 fL Normal 7.4 - 10.4 fL AO Workflow SS Platelets (Bld) [#/Vol] 189 103/mcL Normal 130 - 400 10^3/mcL AO Workflow SS Potassium [Moles/Vol] 3.8 mmol/L Normal 3.5 - 5.1 mmol/L AO ADM SS RBC (Bld) [#/Vol] 4.12 106/mcL Low 4.20 - 5.4 0 10^6/mcL AO Workflow SS Sodium [Moles/Vol] 146 mmol/L High 136 - 145 mmol/L AO ADM SS Troponin I.cardiac DL <= 0.01 ng/mL [Mass/Vol] 136 ng/L High 0 - 51 ng/L AO ADM SS Comment on above: Interpretive Data: H igh Sensitive Troponin I Reference Ranges: Female: 0-51 ng/L Male: 0-76 ng/L Testing performed on [employer] using a homogeneous sandwich chemiluminescent immunoassay based on [employer] technology. TSH Qn 1.78 m[IU]/L Normal 0.36 - 3.74 mcIU/mL AO ADM SS Urea nitrogen [Mass/Vol] 21 mg/dL High 7 - 18 mg/dL AO ADM SS Urea nitrogen/Creatinine [Mass ratio] 16 ratio Normal 7 - 27 ratio AO ADM SS WBC (Bld) [#/Vol] 7.0 103/mcL Normal 4.6 - 10.8 10^3/mcL AO Workflow SS LABORATORYOrdered By: Catina Love on 12-17-2023 Appearance (U) Clear (12/17/23 3:47 PM) Normal Clear AO Auto Urine SS Bilirubin Ql (U) Negative (12/17/23 3:47 PM) Normal Negative AO Auto Urine SS Color (U) Yellow (12/17/23 3:47 PM) Normal AO Auto Urine SS Glucose Test strip (U) [Mass/Vol] Negative Normal Negative AO Auto Urine SS Hemoglobin Auto test strip (U) [Mass/Vol] Trace *ABN* (12/17/23 3:47 PM) Invalid Interpretation Code Negative AO Auto Urine SS Ketones Ql (U) Negative Normal Negative AO Auto Ur ine SS UA Leuk Est Negative (12/17/23 3:47 PM) Normal Negative AO Auto Urine SS UA Nitrite Negative (12/17/23 3:47 PM) Normal Negative AO Auto Urine SS UA pH 6.0 (12/17/23 3:47 PM) Normal 5.0 - 8.0 AO Auto Urine SS UA Protein Negative Normal Negative AO Auto Urine SS UA Spec Grav 1.015 (12/17/23 3:47 PM) Normal 1.015-1.025 AO Auto Urine SS UA Specimen Type Clean Catch (12/17/23 3:47 PM) Normal AO Auto Urine SS UA Urobilinogen 0.2 E.U./dL Normal 0.2-1.0 AO Auto Urine SS TROPHSon 12-17-2023 High Sensitivity Troponin I 140 ng/L High 0-51 [facility] ([place]) Comment on above: Result Comment: High Sensitive Troponin I Reference Ranges: Female: 0-51 ng/L Male: 0-76 ng/L Testing performed on [employer] using a homogeneous sandwich chemiluminescent immunoassay based on [employer] technology. Performed By: #### T MASOOD #### [address] [address] High Sensitivity Troponin I 136 ng/L High 0-51 [facility] ([place]) Comment on above: Result Comment: High Sensitive Troponin I Reference Ranges: Female: 0-51 ng/L Male: 0-76 ng/L Testing performed on [employer] using a homogeneous sandwich chemiluminescent immunoassay based on [employer] technology. Performed By: #### B MP, CBC, TROPHS, TIERRA, GFR, ANEU, MDW #### [address] [address] TSHon 12-17-2023 TSH Qn 1.78 m[IU]/L Normal 0.36-3.74 [facility] ([place]) Comment on above: Performed By: #### T GAYATHRI #### [address] [address] UAon 12-17-2023 Color (U) Yellow Normal [facility] ([place]) Comment on above: Performed By: #### T GAYATHRI #### [address] [address] Glucose (U) [Mass/Vol] Negative Normal Negative [facility] ([place]) Comment on above: Performed By: #### T GAYATHRI #### [address] [address] Ketones Ql (U) Negative Normal Negative [facility] ([place]) Comment on above: Performed By: #### Zander TRINH #### [place] [address] [address] UA Appear Clear Normal Clear [facility] ([place]) Comment on above: Performed By: #### T GAYATHRI #### [place] [address] [address] UA Blood Trace Abnormal Negative [facility] ([place]) Comment on above: Performed By: #### T GAYATHRI #### [place] [address] [address] UA Leuk Est Negative Normal Negative [facility] ([place]) Comment on above: Performed By: #### T GAYATHRI #### [place] [address] [address] UA Nitrite Negative Normal Negative [facility] ([place]) Comment on above: Performed By: #### Zander TRINH #### [place] [address] [address] UA pH 6.0 Normal 5.0 - 8.0 [facility] ([place]) Comment on above: Performed By: #### Zander TRINH #### [place] [address] [address] UA Protein Negative Normal Negative [facility] ([place]) Comment on above: Performed By: #### Zander TRINH #### [place] [address] [address] UA Spec Grav 1.015 Normal 1.015-1.025 [facility] ([place]) Comment on above: Performed By: #### Zander TRINH #### [place] [address] [address] UA Specimen Type Clean Catch Normal [facility] ([place]) Comment on above: Performed By: #### Zander TRINH #### [place] [address] [address] UA Urobilinogen 0.2 E.U./dL Normal 0.2-1.0 [facility] ([place]) Comment on above: Performed By: #### T [facility] #### [address] [place] [address] [place], [place] [address] Urobilinogen (U) [Mass/Vol] Negative Normal Negative [facility] ([place]) Comment on above: Performed By: #### T [facility] #### [place] [address] [place], [place] [address] XR CHEST 1 VIEWon 12-17-2023 XR CHEST 1 VIEW ORIGINAL EXAMINATION: ONE XRAY VIEW OF THE CHEST12/17/2023 3:46 pm COMPARISON: None HISTORY: ORDERING SYSTEM PROVIDED HISTORY: Reason for Exam: syncopal episode, FINDINGS: There is moderate enlargement of the cardiopericardial silhouette. There is nodular density adjacent to the right heart border uncertain if this is epicardial fat or actual pathology 2.5 cm diameter. Prominent markings in interstitium may be simply hypoventilatory change. There is no vascular congestion, large consolidation, pleural effusion or pneumothorax. Bilateral shoulder degenerative changes. IMPRESSION: No acute findings in the lungs accounting for hypoventilatory changes. Right basilar nodular density, uncertain if this is lung pathology, epicardial fat or other type of mass/pseudo mass. Suggest PA and lateral views to determine if this is a persistent finding. Interpreted by: Satya Nieves MD Preliminary Report By: Satya Nieves MD Electronically signed By Satya Nieves MD Dictated Date: 12/17/2023 3:47:32 PM Prelim Date: 12/17/2023 3:49:02 PM Sign Date: 12/17/2023 3:49:02 PM Ordering Provider: JACIEL Bermudez [facility] ([place]) XR CHEST 2 VIEWSon XR CHEST 2 VIEWS ORIGINAL EXAMINATION: TWO XRAY VIEWS OF THE CHEST 12/17/2023 4:11 pm COMPARISON: 12/17/2023 at 1547 hours HISTORY: ORDERING SYSTEM PROVIDED HISTORY: Reason for Exam: Evaluate right basilar nodular density seen on 1 view chest x-ray FINDINGS: Density confirm the region the right middle lobe. Infection, inflammation or mass lesion requires consideration. Remaining lung pederson are clear. Heart is top-normal in size. There is no lobar consolidation, pleural effusion pneumothorax. IMPRESSION: Right middle lobe density. Infection, inflammation or mass requires consideration. Interpreted by: Robert Lopez DO Preliminary Report By: Robert Lopez DO Electronically signed By Robert Lopez DO Dictated Date: 12/17/2023 4:20:40 PM Prelim Date: 12/17/2023 4:21:57 PM Sign Date: 12/17/2023 4:21:57 PM Ordering Provider: AUGUSTO HAYNES [facility] ([place]) Absolute lymphocyte countOrd ered By: Ulysses Spencer on 12-12-2023 Lymphocytes Auto (Unsp spec) [#/Vol] 1.60 10*3/uL 0.83-4.51 [facility] Automated lymphocyte count a s percentage of total leukocytesOrdered By: Ulysses Spencer on 12-12-2023 Lymphocytes/100 WBC Auto (Unsp spec) 25.6 % 19-41 [facility] Basophil percentageOrdered B y: Ulysses Spencer on 12-12-2023 Basophil percentage 3.5 mg/dL 2.5-4.9 [facility] Basophils/100 WBC (Bld) 0.5 % 0-1 [facility] Bilirubin [Mass/Vol] 0.50 mg/dL 0.20-1.00 [facility] Comment on above: For patients on eltr ombopag therapy, use of Dimension Amlin TBIL is not recommended. Chloride [Moles/Vol] 111 mmol/L 98-107 [facility] Cholesterol [Mass/Vol] 130 mg/dL <200 [facility] Comment on above: <200 mg/dL Desirable 200-240 mg/dL Borderline >240 mg/dL High Risk Eosinophils/100 WBC (Bld) 1.1 % 0-5 [facility] Glucose [Mass/Vol] 80 mg/dL 74-106 [facility] Hemoglobin (Bld) [Mass/Vol] 11.6 g/dL 12.0-15.0 [facility] Monocytes/100 WBC (Bld) 8.0 % 0-10 [facility] Neutrophils (Bld) [#/Vol] 4.0 10*3/uL 2.0-7.7 [facility] Neutrophils/100 WBC (Bld) 64.5 % 47-70 [facility] Potassium [Moles/Vol] 3.6 mmol/L 3.5-5.1 [facility] Protein [Mass/Vol] 6.8 g/dL 6.4-8.2 [facility] Sodium [Moles/Vol] 145 mmol/L 136-145 [facility] Triglyceride [Mass/Vol] 73 mg/dL <199 [facility] Comment on above: The drugs N-Acetylcy steine and Metamizole may falsely depress this assay.Serum Triglycerides Reference Interval Normal <150 mg/dL Borderline high 150 - 199 mg/dL High 200 - 499 mg/dL Very High > or = 500 mg/dL WBC (Bld) [#/Vol] 6.2 10*3/uL 4.4-11.0 [facility] Determination of erythrocyte mean corpuscular volume (MCV)Ordered By: Ulysses Spencer on 12-12-2023 MCV (RBC) [Entitic vol] 93.3 fL 81-99 [facility] Erythrocyte distribution wid th ratioOrdered By: Ulysses Spencer on 12-12-2023 Erythrocyte distribution width (RBC) [Ratio] 14.6 % 11.6-14.6 [facility] Erythrocyte distribution wid th standard deviationOrdered By: Ulysses Spencer on 12-12-2023 Erythrocyte distribution width (RBC) [Entitic vol] 49.5 fL 35.1-43.9 [facility] Hematocrit Auto (Bld) [Volum e fraction]Ordered By: Ulysses Spencer on 12-12-2023 Hematocrit (Bld) [Volume fraction] 36.3 % 37-47 [facility] Immature granulocytes/100 WB C Auto (Bld)Ordered By: Ulysses Spencer on 12-12-2023 Immature granulocytes/100 WBC (Bld) 0.300 % 0.0-0.9 [facility] Comment on above: IG% - Immature Granu locytes (promyelocytes, myelocytes and metamyelocytes) > 1% indicates that a LEFT SHIFT is Present. Iron measurement (mass/mass) Ordered By: Ulysses Spencer on 12-12-2023 Iron (Unsp spec) [Mass/Mass] 80 ug/dL 50-170 [facility] Laboratory - Chemistry and C hemistry - challengeOrdered By: Ulysses Spencer on 12-12-2023 Albumin/Globulin [Mass ratio] 1.0 {ratio} 0.9-2.4 [facility] ALP [Catalytic activity/Vol] 69 U/L 45-117 [facility] ALT [Catalytic activity/Vol] 26 U/L 13-56 [facility] Cholesterol in HDL [Mass/Vol] 59 mg/dL >40 [facility] Comment on above: The drugs N-Acetylcy steine and Metamizole may falsely depress this assay. Reference Range HDL <40 mg/dL Low HDL Cholesterol HDL >or= 60 mg/dL High HDL Cholesterol Cholesterol in LDL [Mass/Vol] 56 mg/dL 0-130 [facility] CO2 [Moles/Vol] 30.0 mmol/L 21.0-32.0 [facility] Cobalamin (Vitamin B12) [Mass/Vol] 584 pg/mL 211-911 [facility] Ferritin [Mass/Vol] 85 ng/mL 8-252 [facility] Globulin (S) [Mass/Vol] 3.4 g/dL 2.2-4.2 [facility] Magnesium [Mass/Vol] 2.1 mg/dL 1.6-2.6 [facility] Urea nitrogen/Creatinine [Mass ratio] 15.1 mg/mg 10-20 [facility] - Hematology and Cell countsOrdered By: Ulysses Spencer on 12-12-2023 MCH (RBC) [Entitic mass] 29.8 pg 27.0-32.0 [facility] MCHC (RBC) [Mass/Vol] 32.0 g/dL 32-36 [facility] Nucleated RBC/100 WBC (Bld) [Ratio] 0 % 0-5 [facility] Platelet mean volume (Bld) [Entitic vol] 11.0 fL 6.2-12.0 [facility] Platelets (Bld) [#/Vol] 198 10*3/uL 150-450 [facility] No Panel InformationOrdered By: Ulysses Spencer on 12-12-2023 Estimated GFR (MDRD) Amer 64 mL/min >60 [facility] Comment on above: GFR Calc Estimated GFR (MDRD) Non-Af Amer 53 mL/min >60 [facility] Comment on above: Non- GFR Calc Folate 13.90 ng/mL 3.1-55.4 [facility] Parathyroid Hormone (Intact) 171.3 pg/mL 18.4-80.1 [facility] Total Iron Binding Capacity 339 ug/dL 250-450 [facility] VLDL Cholesterol 15 mg/dL 5-40 [facility] RBC Auto (Bld) [#/Vol]Ordere d By: Ulysses Spencer on 12-12-2023 RBC (Bld) [#/Vol] 3.89 10*6/uL 4.2-5.4 [facility] Serum or plasma calcium kenny urement (mass/volume)Ordered By: Ulysses Spencer on 12-12-2023 Calcium [Mass/Vol] 8.7 mg/dL 8.5-10.1 [facility] Serum or plasma creatinine m easurement (mass/volume)Ordered By: Ulysses Spencer on 12-12-2023 Creatinine [Mass/Vol] 1.06 mg/dL 0.55-1.02 [facility] Comment on above: The validity of the calculated GFR & GFRAA in patients over 70 years has not been determined. Clinical correlation is essential. Serum or plasma urea nitroge n measurement (mass/volume)Ordered By: Ulysses Spenecr on 12-12-2023 Urea nitrogen [Mass/Vol] 16 mg/dL 7-18 [facility] Thin prep Papanicolaou smear with manual screeningOrdered By: Ulysses Spencer on 12-12-2023 Thin prep Papanicolaou smear with manual screening < 6.0 mg/dL 0.0-11.8 [facility] Thin prep Papanicolaou smear with manual screening 3.4 g/dL 3.2-5.0 [facility] Thin prep Papanicolaou smear with manual screening 24 U/L 15-37 [facility] Thin prep Papanicolaou smear with manual screening 4 5-15 [facility] Urine creatinine measurement (mass/volume)Ordered By: Ulysses Spencer on 12-12-2023 Creatinine (U) [Mass/Vol] 28.40 mg/dL NO RANGE EST. [facility] Urine protein/creatinine mas s ratioOrdered By: Ulysses Spencer on 12-12-2023 Protein/Creatinine (U) [Mass ratio] TNP [facility] Comment on above: Test not performed Absolute lymphocyte countOrd ered By: Matilde Correia on 10-31-2023 Lymphocytes Auto (Unsp spec) [#/Vol] 1.37 10*3/uL 0.83-4.51 [facility] Automated lymphocyte count a s percentage of total leukocytesOrdered By: Matilde Correia on 10-31-2023 Lymphocytes/100 WBC Auto (Unsp spec) 24.2 % 19-41 [facility] Basophil percentageOrdered B y: Matilde Correia on 10-31-2023 Basophils/100 WBC (Bld) 0.9 % 0-1 [facility] Chloride [Moles/Vol] 110 mmol/L 98-107 [facility] Eosinophils/100 WBC (Bld) 1.6 % 0-5 [facility] Glucose [Mass/Vol] 90 mg/dL 74-106 [facility] Hemoglobin (Bld) [Mass/Vol] 11.9 g/dL 12.0-15.0 [facility] Monocytes/100 WBC (Bld) 9.4 % 0-10 [facility] Neutrophils (Bld) [#/Vol] 3.6 10*3/uL 2.0-7.7 [facility] Neutrophils/100 WBC (Bld) 63.7 % 47-70 [facility] Potassium [Moles/Vol] 3.9 mmol/L 3.5-5.1 [facility] Sodium [Moles/Vol] 142 mmol/L 136-145 [facility] WBC (Bld) [#/Vol] 5.7 10*3/uL 4.4-11.0 [facility] Determination of erythrocyte mean corpuscular volume (MCV)Ordered By: Matilde Correia on 10-31-2023 MCV (RBC) [Entitic vol] 92.9 fL 81-99 [facility] Erythrocyte distribution wid th ratioOrdered By: Matilde Correia on 10-31-2023 Erythrocyte distribution width (RBC) [Ratio] 14.1 % 11.6-14.6 [facility] Erythrocyte distribution wid th standard deviationOrdered By: Matilde Correia on 10-31-2023 Erythrocyte distribution width (RBC) [Entitic vol] 48.4 fL 35.1-43.9 [facility] Hematocrit Auto (Bld) [Volum e fraction]Ordered By: Matilde Correia on 10-31-2023 Hematocrit (Bld) [Volume fraction] 36.7 % 37-47 [facility] Immature granulocytes/100 WB C Auto (Bld)Ordered By: Matilde Correia on 10-31-2023 Immature granulocytes/100 WBC (Bld) 0.200 % 0.0-0.9 [facility] Comment on above: IG% - Immature Granu locytes (promyelocytes, myelocytes and metamyelocytes) > 1% indicates that a LEFT SHIFT is Present. Laboratory - Chemistry and C hemistry - challengeOrdered By: Matilde Correia on 10-31-2023 CO2 [Moles/Vol] 29.0 mmol/L 21.0-32.0 [facility] Urea nitrogen/Creatinine [Mass ratio] 20.3 mg/mg 10-20 [facility] Laboratory - Hematology and Cell countsOrdered By: Matilde Correia on 10-31-2023 MCH (RBC) [Entitic mass] 30.1 pg 27.0-32.0 [facility] MCHC (RBC) [Mass/Vol] 32.4 g/dL 32-36 [facility] Nucleated RBC/100 WBC (Bld) [Ratio] 0 % 0-5 [facility] Platelet mean volume (Bld) [Entitic vol] 11.3 fL 6.2-12.0 [facility] Platelets (Bld) [#/Vol] 153 10*3/uL 150-450 [facility] No Panel InformationOrdered By: Matilde Correia on 10-31-2023 Estimated GFR (MDRD) Amer 57 mL/min >60 [facility] Comment on above: GFR Calc Estimated GFR (MDRD) Non-Af Amer 47 mL/min >60 [facility] Comment on above: Non- GFR Calc RBC Auto (Bld) [#/Vol]Ordere d By: Matilde Correia on 10-31-2023 RBC (Bld) [#/Vol] 3.95 10*6/uL 4.2-5.4 [facility] Serum or plasma calcium kenny urement (mass/volume)Ordered By: Matilde Correia on 10-31-2023 Calcium [Mass/Vol] 9.0 mg/dL 8.5-10.1 [facility] Serum or plasma creatinine m easurement (mass/volume)Ordered By: Matilde Correia on 10-31-2023 Creatinine [Mass/Vol] 1.18 mg/dL 0.55-1.02 [facility] Comment on above: The validity of the calculated GFR & GFRAA in patients over 70 years has not been determined. Clinical correlation is essential. Serum or plasma urea nitroge n measurement (mass/volume)Ordered By: Matilde Correia on 10-31-2023 Urea nitrogen [Mass/Vol] 24 mg/dL 7-18 [facility] Thin prep Papanicolaou smear with manual screeningOrdered By: Matilde Correia on 10-31-2023 Thin prep Papanicolaou smear with manual screening 3 5-15 [facility] Basophil percentageOrdered B y: Matilde Correia on 09-19-2023 Chloride [Moles/Vol] 105 mmol/L 98-107 [facility] Glucose [Mass/Vol] 100 mg/dL 74-106 [facility] Comment on above: Fasting Glucose resu lt from 100 to 125 mg/dL suggests IMPAIRED HOMEOSTASIS per A.D.A. criteria. Potassium [Moles/Vol] 3.9 mmol/L 3.5-5.1 [facility] Sodium [Moles/Vol] 139 mmol/L 136-145 [facility] Laboratory - Chemistry and C hemistry - challengeOrdered By: Matilde Correia on 09-19-2023 CO2 [Moles/Vol] 30.0 mmol/L 21.0-32.0 [facility] Urea nitrogen/Creatinine [Mass ratio] 18.2 mg/mg 10-20 [facility] No Panel InformationOrdered By: Matilde Correia on 09-19-2023 Estimated GFR (MDRD) Amer 50 mL/min >60 [facility] Comment on above: GFR Calc Estimated GFR (MDRD) Non-Af Amer 41 mL/min >60 [facility] Comment on above: Non- GFR Calc Serum or plasma calcium kenny urement (mass/volume)Ordered By: Matilde Correia on 09-19-2023 Calcium [Mass/Vol] 9.8 mg/dL 8.5-10.1 [facility] Serum or plasma creatinine m easurement (mass/volume)Ordered By: Matilde Correia on 09-19-2023 Creatinine [Mass/Vol] 1.32 mg/dL 0.55-1.02 [facility] Comment on above: The validity of the calculated GFR & GFRAA in patients over 70 years has not been determined. Clinical correlation is essential. Serum or plasma urea nitroge n measurement (mass/volume)Ordered By: Matilde Correia on 09-19-2023 Urea nitrogen [Mass/Vol] 24 mg/dL 7-18 [facility] Thin prep Papanicolaou smear with manual screeningOrdered By: Matilde Correia on 09-19-2023 Thin prep Papanicolaou smear with manual screening 4 5-15 [facility] Basophil percentageOrdered B y: Nicki Hung on 09-11-2023 Chloride [Moles/Vol] 108 mmol/L 98-107 [facility] Glucose [Mass/Vol] 87 mg/dL 74-106 [facility] Potassium [Moles/Vol] 3.8 mmol/L 3.5-5.1 [facility] Sodium [Moles/Vol] 142 mmol/L 136-145 [facility] Laboratory - Chemistry and C hemistry - challengeOrdered By: Nicki Hung on 09-11-2023 CO2 [Moles/Vol] 31.0 mmol/L 21.0-32.0 [facility] Urea nitrogen/Creatinine [Mass ratio] 16.8 mg/mg 10-20 [facility] No Panel InformationOrdered By: Nicki Hung on 09-11-2023 Estimated GFR (MDRD) Amer 60 mL/min >60 [facility] Comment on above: GFR Calc Estimated GFR (MDRD) Non-Af Amer 49 mL/min >60 [facility] Comment on above: Non- GFR Calc Serum or plasma calcium kenny urement (mass/volume)Ordered By: Nicki Hung on 09-11-2023 Calcium [Mass/Vol] 8.6 mg/dL 8.5-10.1 [facility] Serum or plasma creatinine m easurement (mass/volume)Ordered By: Nicki Hung on 09-11-2023 Creatinine [Mass/Vol] 1.13 mg/dL 0.55-1.02 [facility] Comment on above: The validity of the calculated GFR & GFRAA in patients over 70 years has not been determined. Clinical correlation is essential. Serum or plasma urea nitroge n measurement (mass/volume)Ordered By: Nicki Hung on 09-11-2023 Urea nitrogen [Mass/Vol] 19 mg/dL 7-18 [facility] Thin prep Papanicolaou smear with manual screeningOrdered By: Nicki Hung on 09-11-2023 Thin prep Papanicolaou smear with manual screening 3 5-15 [facility] Absolute lymphocyte countOrd ered By: Ulysses Spencer on 08-07-2023 Lymphocytes Auto (Unsp spec) [#/Vol] 1.26 10*3/uL 0.83-4.51 [facility] Basophil percentageOrdered B y: Ulysses Spencer on 08-07-2023 Basophils/100 WBC (Bld) 0.5 % 0-1 [facility] Bilirubin [Mass/Vol] 0.30 mg/dL 0.20-1.00 [facility] Comment on above: For patients on eltr ombopag therapy, use of Dimension Amlin TBIL is not recommended. Chloride [Moles/Vol] 111 mmol/L 98-107 [facility] Eosinophils/100 WBC (Bld) 0.9 % 0-5 [facility] Glucose [Mass/Vol] 84 mg/dL 74-106 [facility] Neutrophils (Bld) [#/Vol] 4.0 10*3/uL 2.0-7.7 [facility] Neutrophils/100 WBC (Bld) 69.3 % 47-70 [facility] Potassium [Moles/Vol] 4.1 mmol/L 3.5-5.1 [facility] Protein [Mass/Vol] 6.8 g/dL 6.4-8.2 [facility] Sodium [Moles/Vol] 144 mmol/L 136-145 [facility] WBC (Bld) [#/Vol] 5.8 10*3/uL 4.4-11.0 [facility] Blood erythrocytes count (nu mber/volume)Ordered By: Ulysses Spencer on 08-07-2023 RBC (Bld) [#/Vol] 3.69 10*6/uL 4.2-5.4 [facility] Blood hemoglobin measurement (mass/volume)Ordered By: Ulysses Spencer on 08-07-2023 Hemoglobin (Bld) [Mass/Vol] 11.7 g/dL 12.0-15.0 [facility] Blood lymphocytes/100 leukoc ytesOrdered By: Ulysses Spencer on 08-07-2023 Lymphocytes/100 WBC (Bld) 21.8 % 19-41 [facility] Blood monocytes/100 leukocyt esOrdered By: Ulysses Spencer on 08-07-2023 Monocytes/100 WBC (Bld) 7.3 % 0-10 [facility] Blood platelet mean volumeOr dered By: Ulysses Spencer on 08-07-2023 Platelet mean volume (Bld) [Entitic vol] 11.1 fL 6.2-12.0 [facility] Determination of erythrocyte mean corpuscular volume (MCV)Ordered By: Ulysses Spencer on 08-07-2023 MCV (RBC) [Entitic vol] 97.8 fL 81-99 [facility] Hematocrit Auto (Bld) [Volum e fraction]Ordered By: Ulysses Spencer on 08-07-2023 Hematocrit (Bld) [Volume fraction] 36.1 % 37-47 [facility] - Chemistry and C hemistry - challengeOrdered By: Ulysses Spencer on 08-07-2023 ALP [Catalytic activity/Vol] 82 U/L 45-117 [facility] ALT [Catalytic activity/Vol] 44 U/L 13-56 [facility] CO2 [Moles/Vol] 27.0 mmol/L 21.0-32.0 [facility] Globulin (S) [Mass/Vol] 3.3 g/dL 2.2-4.2 [facility] Magnesium [Mass/Vol] 2.3 mg/dL 1.6-2.6 [facility] Urea nitrogen/Creatinine [Mass ratio] 18.4 mg/mg 10-20 [facility] - Hematology and Cell countsOrdered By: Ulysses Spencer on 08-07-2023 Erythrocyte distribution width (RBC) [Entitic vol] 51.7 fL 35.1-43.9 [facility] Erythrocyte distribution width (RBC) [Ratio] 14.3 % 11.6-14.6 [facility] Immature granulocytes/100 WBC (Bld) 0.200 % 0.0-0.9 [facility] Comment on above: IG% - Immature Granu locytes (promyelocytes, myelocytes and metamyelocytes) > 1% indicates that a LEFT SHIFT is Present. MCH (RBC) [Entitic mass] 31.7 pg 27.0-32.0 [facility] Nucleated RBC/100 WBC (Bld) [Ratio] 0 % 0-5 [facility] MCHC Auto (RBC) [Mass/Vol]Or dered By: Ulysses Spencer on 08-07-2023 MCHC (RBC) [Mass/Vol] 32.4 g/dL 32-36 [facility] No Panel InformationOrdered By: Ulysses Spencer on 08-07-2023 Estimated GFR (MDRD) Amer 70 mL/min >60 [facility] Comment on above: GFR Calc Estimated GFR (MDRD) Non-Af Amer 58 mL/min >60 [facility] Comment on above: Non- GFR Calc Thyroid Stimulating Hormone (TSH) 1.35 uIU/mL 0.358-3.74 [facility] Platelets bldOrdered By: Philip Spencer on 08-07-2023 Platelets (Bld) [#/Vol] 165 10*3/uL 150-450 [facility] Serum or plasma albumin kenny urement (mass/volume)Ordered By: Ulysses Spencer on 08-07-2023 Albumin [Mass/Vol] 3.5 g/dL 3.2-5.0 [facility] Serum or plasma albumin/glob ulin mass ratioOrdered By: Ulysses Spencer on 08-07-2023 Albumin/Globulin [Mass ratio] 1.1 {ratio} 0.9-2.4 [facility] Serum or plasma calcium kenny urement (mass/volume)Ordered By: Ulysses Spencer on 08-07-2023 Calcium [Mass/Vol] 8.5 mg/dL 8.5-10.1 [facility] Serum or plasma creatinine m easurement (mass/volume)Ordered By: Ulysses Spencer on 08-07-2023 Creatinine [Mass/Vol] 0.98 mg/dL 0.55-1.02 [facility] Comment on above: The validity of the calculated GFR & GFRAA in patients over 70 years has not been determined. Clinical correlation is essential. Serum or plasma urea nitroge n measurement (mass/volume)Ordered By: Ulysses Spencer on 08-07-2023 Urea nitrogen [Mass/Vol] 18 mg/dL 7-18 [facility] Thin prep Papanicolaou smear with manual screeningOrdered By: Ulysses Spencer on 08-07-2023 Thin prep Papanicolaou smear with manual screening 30 U/L 15-37 [facility] Thin prep Papanicolaou smear with manual screening 6 5-15 [facility] Absolute lymphocyte countOrd ered By: Ulysses Spencer on 07-11-2023 Lymphocytes Auto (Unsp spec) [#/Vol] 1.16 10*3/uL 0.83-4.51 [facility] Basophil percentageOrdered B y: Ulysses Spencer on 07-11-2023 Basophil percentage 3.3 mg/dL 2.5-4.9 [facility] Basophils/100 WBC (Bld) 0.8 % 0-1 [facility] Bilirubin [Mass/Vol] 0.60 mg/dL 0.20-1.00 [facility] Comment on above: For patients on eltr ombopag therapy, use of Dimension Amlin TBIL is not recommended. Chloride [Moles/Vol] 109 mmol/L 98-107 [facility] Cholesterol [Mass/Vol] 155 mg/dL <200 [facility] Comment on above: <200 mg/dL Desirable 200-240 mg/dL Borderline >240 mg/dL High Risk Eosinophils/100 WBC (Bld) 0.4 % 0-5 [facility] Glucose [Mass/Vol] 90 mg/dL 74-106 [facility] Neutrophils (Bld) [#/Vol] 3.4 10*3/uL 2.0-7.7 [facility] Neutrophils/100 WBC (Bld) 68.0 % 47-70 [facility] Potassium [Moles/Vol] 4.2 mmol/L 3.5-5.1 [facility] Protein [Mass/Vol] 7.0 g/dL 6.4-8.2 [facility] Sodium [Moles/Vol] 142 mmol/L 136-145 [facility] Triglyceride [Mass/Vol] 57 mg/dL <199 [facility] Comment on above: The drugs N-Acetylcy steine and Metamizole may falsely depress this assay.Serum Triglycerides Reference Interval Normal <150 mg/dL Borderline high 150 - 199 mg/dL High 200 - 499 mg/dL Very High > or = 500 mg/dL WBC (Bld) [#/Vol] 5.0 10*3/uL 4.4-11.0 [facility] Blood erythrocytes count (nu mber/volume)Ordered By: Ulysses Spencer on 07-11-2023 RBC (Bld) [#/Vol] 3.68 10*6/uL 4.2-5.4 [facility] Blood hemoglobin measurement (mass/volume)Ordered By: Ulysses Spencer on 07-11-2023 Hemoglobin (Bld) [Mass/Vol] 11.4 g/dL 12.0-15.0 [facility] Blood lymphocytes/100 leukoc ytesOrdered By: Ulysses Spencer on 07-11-2023 Lymphocytes/100 WBC (Bld) 23.2 % 19-41 [facility] Blood monocytes/100 leukocyt esOrdered By: Ulysses Spencer on 07-11-2023 Monocytes/100 WBC (Bld) 7.2 % 0-10 [facility] Blood platelet mean volumeOr dered By: Ulysses Spencer on 07-11-2023 Platelet mean volume (Bld) [Entitic vol] 11.2 fL 6.2-12.0 [facility] Determination of erythrocyte mean corpuscular volume (MCV)Ordered By: Ulysses Spencer on 07-11-2023 MCV (RBC) [Entitic vol] 98.4 fL 81-99 [facility] Hematocrit Auto (Bld) [Volum e fraction]Ordered By: Ulysses Spencer on 07-11-2023 Hematocrit (Bld) [Volume fraction] 36.2 % 37-47 [facility] Iron measurement (mass/mass) Ordered By: Ulysses Spencer on 07-11-2023 Iron (Unsp spec) [Mass/Mass] 59 ug/dL 50-170 [facility] Laboratory - Chemistry and C hemistry - challengeOrdered By: Ulysses Spencer on 07-11-2023 ALP [Catalytic activity/Vol] 67 U/L 45-117 [facility] ALT [Catalytic activity/Vol] 21 U/L 13-56 [facility] CO2 [Moles/Vol] 27.0 mmol/L 21.0-32.0 [facility] Cobalamin (Vitamin B12) [Mass/Vol] 368 pg/mL 211-911 [facility] Globulin (S) [Mass/Vol] 3.4 g/dL 2.2-4.2 [facility] Urea nitrogen/Creatinine [Mass ratio] 14.2 mg/mg 10-20 [facility] - Hematology and Cell countsOrdered By: Ulysses Spencer on 07-11-2023 Erythrocyte distribution width (RBC) [Entitic vol] 47.1 fL 35.1-43.9 [facility] Erythrocyte distribution width (RBC) [Ratio] 13.2 % 11.6-14.6 [facility] Immature granulocytes/100 WBC (Bld) 0.400 % 0.0-0.9 [facility] Comment on above: IG% - Immature Granu locytes (promyelocytes, myelocytes and metamyelocytes) > 1% indicates that a LEFT SHIFT is Present. MCH (RBC) [Entitic mass] 31.0 pg 27.0-32.0 [facility] Nucleated RBC/100 WBC (Bld) [Ratio] 0 % 0-5 [facility] MCHC Auto (RBC) [Mass/Vol]Or dered By: Ulysses Spencer on 07-11-2023 MCHC (RBC) [Mass/Vol] 31.5 g/dL 32-36 [facility] No Panel InformationOrdered By: Ulysses Spencer on 07-11-2023 Estimated GFR (MDRD) Amer 83 mL/min >60 [facility] Comment on above: GFR Calc Estimated GFR (MDRD) Non-Af Amer 69 mL/min >60 [facility] Comment on above: Non- GFR Calc Parathyroid Hormone (Intact) 83.5 pg/mL 18.4-80.1 [facility] Total Iron Binding Capacity 316 ug/dL 250-450 [facility] Vitamin D 25-Hydroxy 36.8 ng/mL [facility] Comment on above: Vitamin D 25(OH) Sta tus Range Deficiency <20 ng/mL (50nmol/L) Insufficiency 20 - 30 ng/mL (50 - 75 nmol/L) Sufficiency 30 - 100 ng/mL (75 - 250 nmol/L) Toxicity >100 ng/mL (>250 nmol/L) Platelets bldOrdered By: Philip Spencer on 07-11-2023 Platelets (Bld) [#/Vol] 161 10*3/uL 150-450 [facility] Serum or plasma albumin kenny urement (mass/volume)Ordered By: Ulysses Spencer on 07-11-2023 Albumin [Mass/Vol] 3.6 g/dL 3.2-5.0 [facility] Serum or plasma albumin/glob ulin mass ratioOrdered By: Ulysses Spencer on 07-11-2023 Albumin/Globulin [Mass ratio] 1.1 {ratio} 0.9-2.4 [facility] Serum or plasma calcium kenny urement (mass/volume)Ordered By: Ulysses Spencer on 07-11-2023 Calcium [Mass/Vol] 9.3 mg/dL 8.5-10.1 [facility] Serum or plasma cholesterol in HDL measurement (mass/volume)Ordered By: Ulysses Spencer on 07-11-2023 Cholesterol in HDL [Mass/Vol] 73 mg/dL >40 [facility] Comment on above: The drugs N-Acetylcy steine and Metamizole may falsely depress this assay. Reference Range HDL <40 mg/dL Low HDL Cholesterol HDL >or= 60 mg/dL High HDL Cholesterol Serum or plasma cholesterol in VLDL measurement (mass/volume)Ordered By: Ulysses Spencer on 07-11-2023 Cholesterol in VLDL [Mass/Vol] 11 mg/dL 5-40 [facility] Serum or plasma creatinine m easurement (mass/volume)Ordered By: Ulysses Spencer on 07-11-2023 Creatinine [Mass/Vol] 0.84 mg/dL 0.55-1.02 [facility] Comment on above: The validity of the calculated GFR & GFRAA in patients over 70 years has not been determined. Clinical correlation is essential. Serum or plasma ferritin bobby surement (mass/volume)Ordered By: Ulysses Spencer on 07-11-2023 Ferritin [Mass/Vol] 78 ng/mL 8-252 [facility] Serum or plasma folate measu rement (mass/volume)Ordered By: Ulysses Spencer on 07-11-2023 Folate [Mass/Vol] 10.60 ng/mL 3.1-55.4 [facility] Serum or plasma low density lipoprotein (LDL) cholesterol measurement (mass/volume)Ordered By: Ulysses Spencer on 07-11-2023 Cholesterol in LDL [Mass/Vol] 71 mg/dL 0-130 [facility] Serum or plasma urea nitroge n measurement (mass/volume)Ordered By: Ulysses Spencer on 07-11-2023 Urea nitrogen [Mass/Vol] 12 mg/dL 7-18 [facility] Thin prep Papanicolaou smear with manual screeningOrdered By: Ulysses Spencer on 07-11-2023 Thin prep Papanicolaou smear with manual screening 14 U/L 15-37 [facility] Thin prep Papanicolaou smear with manual screening 6 5-15 [facility] Basophil percentageOrdered B y: Nicki Hung on 03-16-2023 Cholesterol [Mass/Vol] 216 mg/dL <200 [facility] Comment on above: <200 mg/dL Desirable 200-240 mg/dL Borderline >240 mg/dL High Risk Triglyceride [Mass/Vol] 67 mg/dL <199 [facility] Comment on above: The drugs N-Acetylcy steine and Metamizole may falsely depress this assay.Serum Triglycerides Reference Interval Normal <150 mg/dL Borderline high 150 - 199 mg/dL High 200 - 499 mg/dL Very High > or = 500 mg/dL Iron measurement (mass/mass) Ordered By: Ulysses Spencer on 03-16-2023 Iron (Unsp spec) [Mass/Mass] 67 ug/dL 50-170 [facility] - Chemistry and C hemistry - challengeOrdered By: Ulysses Spencer on 03-16-2023 Cobalamin (Vitamin B12) [Mass/Vol] 300 pg/mL 211-911 [facility] No Panel InformationOrdered By: Nicki Hung on 03-16-2023 Vitamin D 25-Hydroxy 63.0 ng/mL [facility] Comment on above: Vitamin D 25(OH) Sta tus Range Deficiency <20 ng/mL (50nmol/L) Insufficiency 20 - 30 ng/mL (50 - 75 nmol/L) Sufficiency 30 - 100 ng/mL (75 - 250 nmol/L) Toxicity >100 ng/mL (>250 nmol/L) No Panel InformationOrdered By: Ulysses Spencer on 03-16-2023 Total Iron Binding Capacity 286 ug/dL 250-450 [facility] Serum or plasma cholesterol in HDL measurement (mass/volume)Ordered By: Nicki Hung on 03-16-2023 Cholesterol in HDL [Mass/Vol] 68 mg/dL >40 [facility] Comment on above: The drugs N-Acetylcy steine and Metamizole may falsely depress this assay. Reference Range HDL <40 mg/dL Low HDL Cholesterol HDL >or= 60 mg/dL High HDL Cholesterol Serum or plasma cholesterol in VLDL measurement (mass/volume)Ordered By: Nicki Hung on 03-16-2023 Cholesterol in VLDL [Mass/Vol] 13 mg/dL 5-40 [facility] Serum or plasma ferritin bobby surement (mass/volume)Ordered By: Ulysses Spencer on 03-16-2023 Ferritin [Mass/Vol] 85 ng/mL 8-252 [facility] Serum or plasma low density lipoprotein (LDL) cholesterol measurement (mass/volume)Ordered By: Nicki Hung on 03-16-2023 Cholesterol in LDL [Mass/Vol] 135 mg/dL 0-130 [facility] Absolute lymphocyte countOrd ered By: Dr. Spencer on 11-09-2022 Lymphocytes Auto (Unsp spec) [#/Vol] 1.39 10*3/uL 0.83-4.51 [facility] Basophil percentageOrdered B y: Dr. Spencer on 11-09-2022 Basophil percentage 0 SEEN /hpf 0-5 [facility] Basophil percentage 3.3 mg/dL 2.5-4.9 [facility] Basophils/100 WBC (Bld) 1.0 % 0-1 [facility] Bilirubin [Mass/Vol] 0.40 mg/dL 0.20-1.00 [facility] Comment on above: For patients on eltr ombopag therapy, use of Dimension Amlin TBIL is not recommended. Chloride [Moles/Vol] 109 mmol/L 98-107 [facility] Cholesterol [Mass/Vol] 210 mg/dL <200 [facility] Comment on above: <200 mg/dL Desirable 200-240 mg/dL Borderline >240 mg/dL High Risk Eosinophils/100 WBC (Bld) 2.0 % 0-5 [facility] Glucose [Mass/Vol] 91 mg/dL 74-106 [facility] Neutrophils (Bld) [#/Vol] 3.0 10*3/uL 2.0-7.7 [facility] Neutrophils/100 WBC (Bld) 59.9 % 47-70 [facility] Potassium [Moles/Vol] 4.2 mmol/L 3.5-5.1 [facility] Protein [Mass/Vol] 7.1 g/dL 6.4-8.2 [facility] Sodium [Moles/Vol] 143 mmol/L 136-145 [facility] Triglyceride [Mass/Vol] 57 mg/dL <199 [facility] Comment on above: The drugs N-Acetylcy steine and Metamizole may falsely depress this assay.Serum Triglycerides Reference Interval Normal <150 mg/dL Borderline high 150 - 199 mg/dL High 200 - 499 mg/dL Very High > or = 500 mg/dL WBC (Bld) [#/Vol] 5.0 10*3/uL 4.4-11.0 [facility] Bilirubin Test strip Ql (U)O rdered By: Dr. Spencer on 11-09-2022 Bilirubin Ql (U) Negative Negative [facility] Blood erythrocytes count (nu mber/volume)Ordered By: Dr. Spencer on 11-09-2022 RBC (Bld) [#/Vol] 3.73 10*6/uL 4.2-5.4 [facility] Blood hemoglobin measurement (mass/volume)Ordered By: Dr. Spencer on 11-09-2022 Hemoglobin (Bld) [Mass/Vol] 11.6 g/dL 12.0-15.0 [facility] Blood lymphocytes/100 leukoc ytesOrdered By: Dr. Spencer on 11-09-2022 Lymphocytes/100 WBC (Bld) 27.6 % 19-41 [facility] Blood monocytes/100 leukocyt esOrdered By: Dr. Spencer on 11-09-2022 Monocytes/100 WBC (Bld) 9.1 % 0-10 [facility] Blood platelet mean volumeOr dered By: Dr. Spencer on 11-09-2022 Platelet mean volume (Bld) [Entitic vol] 10.6 fL 6.2-12.0 [facility] Determination of erythrocyte mean corpuscular volume (MCV)Ordered By: Dr. Spencer on 11-09-2022 MCV (RBC) [Entitic vol] 97.1 fL 81-99 [facility] Hematocrit Auto (Bld) [Volum e fraction]Ordered By: Dr. Spencer on 11-09-2022 Hematocrit (Bld) [Volume fraction] 36.2 % 37-47 [facility] Iron measurement (mass/mass) Ordered By: Dr. Spencer on 11-09-2022 Iron (Unsp spec) [Mass/Mass] 62 ug/dL 50-170 [facility] Ketones Test strip Ql (U)Ord ered By: Dr. Spencer on 11-09-2022 Ketones Ql (U) Negative Negative [facility] - Chemistry and C hemistry - challengeOrdered By: Dr. Spencer on 11-09-2022 ALP [Catalytic activity/Vol] 61 U/L 45-117 [facility] ALT [Catalytic activity/Vol] 16 U/L 13-56 [facility] CO2 [Moles/Vol] 27.0 mmol/L 21.0-32.0 [facility] Cobalamin (Vitamin B12) [Mass/Vol] 337 pg/mL 211-911 [facility] Globulin (S) [Mass/Vol] 3.6 g/dL 2.2-4.2 [facility] Urea nitrogen/Creatinine [Mass ratio] 21.6 mg/mg 10-20 [facility] - Hematology and Cell countsOrdered By: Dr. Spencer on 11-09-2022 Erythrocyte distribution width (RBC) [Entitic vol] 49.8 fL 35.1-43.9 [facility] Erythrocyte distribution width (RBC) [Ratio] 14.0 % 11.6-14.6 [facility] Immature granulocytes/100 WBC (Bld) 0.400 % 0.0-0.9 [facility] Comment on above: IG% - Immature Granu locytes (promyelocytes, myelocytes and metamyelocytes) > 1% indicates that a LEFT SHIFT is Present. MCH (RBC) [Entitic mass] 31.1 pg 27.0-32.0 [facility] Nucleated RBC/100 WBC (Bld) [Ratio] 0 % 0-5 [facility] MCHC Auto (RBC) [Mass/Vol]Or dered By: Dr. Spencer on 11-09-2022 MCHC (RBC) [Mass/Vol] 32.0 g/dL 32-36 [facility] Mucus LM Ql (Urine sed)Order ed By: Dr. Spencer on 11-09-2022 Mucus Ql (Urine sed) 0 SEEN /hpf [facility] Nitrite Test strip Ql (U)Ord ered By: Dr. Spencer on 11-09-2022 Nitrite Ql (U) Negative Negative [facility] No Panel InformationOrdered By: Dr. Spencer on 11-09-2022 Estimated GFR (MDRD) Amer 80 mL/min >60 [facility] Comment on above: GFR Calc Estimated GFR (MDRD) Non-Af Amer 66 mL/min >60 [facility] Comment on above: Non- GFR Calc Parathyroid Hormone (Intact) 73.3 pg/mL 18.4-80.1 [facility] Total Iron Binding Capacity 291 ug/dL 250-450 [facility] Vitamin D 25-Hydroxy 16.2 ng/mL [facility] Comment on above: Vitamin D 25(OH) Sta tus Range Deficiency <20 ng/mL (50nmol/L) Insufficiency 20 - 30 ng/mL (50 - 75 nmol/L) Sufficiency 30 - 100 ng/mL (75 - 250 nmol/L) Toxicity >100 ng/mL (>250 nmol/L) Platelets bldOrdered By: Dr. Spencer on 11-09-2022 Platelets (Bld) [#/Vol] 214 10*3/uL 150-450 [facility] Protein Test strip Ql (U)Ord ered By: Dr. Spencer on 11-09-2022 Protein Ql (U) Negative Negative [facility] Serum or plasma albumin kenny urement (mass/volume)Ordered By: Dr. Spencer on 11-09-2022 Albumin [Mass/Vol] 3.5 g/dL 3.2-5.0 [facility] Serum or plasma albumin/glob ulin mass ratioOrdered By: Dr. Spencer on 11-09-2022 Albumin/Globulin [Mass ratio] 1.0 {ratio} 0.9-2.4 [facility] Serum or plasma calcium kenny urement (mass/volume)Ordered By: Dr. Spencer on 11-09-2022 Calcium [Mass/Vol] 9.2 mg/dL 8.5-10.1 [facility] Serum or plasma cholesterol in HDL measurement (mass/volume)Ordered By: Dr. Spencer on 11-09-2022 Cholesterol in HDL [Mass/Vol] 73 mg/dL >40 [facility] Comment on above: The drugs N-Acetylcy steine and Metamizole may falsely depress this assay. Reference Range HDL <40 mg/dL Low HDL Cholesterol HDL >or= 60 mg/dL High HDL Cholesterol Serum or plasma cholesterol in VLDL measurement (mass/volume)Ordered By: Dr. Spencer on 11-09-2022 Cholesterol in VLDL [Mass/Vol] 11 mg/dL 5-40 [facility] Serum or plasma creatinine m easurement (mass/volume)Ordered By: Dr. Spencer on 11-09-2022 Creatinine [Mass/Vol] 0.88 mg/dL 0.55-1.02 [facility] Comment on above: The validity of the calculated GFR & GFRAA in patients over 70 years has not been determined. Clinical correlation is essential. Serum or plasma ferritin bobby surement (mass/volume)Ordered By: Dr. Spencer on 11-09-2022 Ferritin [Mass/Vol] 57 ng/mL 8-252 [facility] Serum or plasma iron saturat ion measurement (mass fraction)Ordered By: Dr. Spencer on 11-09-2022 Iron saturation [Mass fraction] 21.3 % 15.0-55.0 [facility] Serum or plasma low density lipoprotein (LDL) cholesterol measurement (mass/volume)Ordered By: Dr. Spencer on 11-09-2022 Cholesterol in LDL [Mass/Vol] 126 mg/dL 0-130 [facility] Serum or plasma urea nitroge n measurement (mass/volume)Ordered By: Dr. Spencer on 11-09-2022 Urea nitrogen [Mass/Vol] 19 mg/dL 7-18 [facility] Squamous epithelial cells de tection in urine sediment by light microscopyOrdered By: Dr. Spencer on 11-09-2022 Epithelial cells.squamous LM Ql (Urine sed) 0-5 SEEN /hpf 5-10 [facility] Thin prep Papanicolaou smear with manual screeningOrdered By: Dr. Spencer on 11-09-2022 Thin prep Papanicolaou smear with manual screening 13 U/L 15-37 [facility] Thin prep Papanicolaou smear with manual screening 7 5-15 [facility] Urine blood detectionOrdered By: Dr. Spencer on 11-09-2022 RBC Ql (U) 25 /ul Negative [facility] RBC Ql (U) 0-5 SEEN /hpf 0-5 [facility] Urine clarityOrdered By: Dr. Spencer on 11-09-2022 Clarity (U) Clear Clear [facility] Urine color determinationOrd ered By: Dr. Spencer on 11-09-2022 Color (U) Yellow Yellow [facility] Urine creatinine measurement (mass/volume)Ordered By: Dr. Spencer on 11-09-2022 Creatinine (U) [Mass/Vol] 83.70 mg/dL NO RANGE EST. [facility] Urine glucose detectionOrder ed By: Dr. Spencer on 11-09-2022 Glucose Ql (U) Normal mg/dl Normal [facility] Urine leukocyte esterase det ection by dipstickOrdered By: Dr. Spencer on 11-09-2022 Leukocyte esterase Test strip Ql (U) Negative Negative [facility] Urine pHOrdered By: Dr. Dimitri aguilera on 11-09-2022 pH (U) 7.0 [pH] 5.0 - 8.0 [facility] Urine protein measurement (m ass/volume)Ordered By: Dr. Spencer on 11-09-2022 Protein (U) [Mass/Vol] 7.4 mg/dL 0.0-11.8 [facility] Urine protein/creatinine mas s ratioOrdered By: Dr. Spencer on 11-09-2022 Protein/Creatinine (U) [Mass ratio] 88 mg/g CRE 0-200 [facility] Urine sediment bacteria coun t by microscopy (number/high power field)Ordered By: Dr. Spencer on 11-09-2022 Bacteria LM.HPF (Urine sed) [#/Area] 0 /[HPF] None Seen [facility] Urine specific gravity measu rementOrdered By: Dr. Spencer on 11-09-2022 Specific gravity (U) [Rel density] 1.010 1.002-1.030 [facility] Urobilinogen Auto test strip Ql (U)Ordered By: Dr. Spencer on 11-09-2022 Urobilinogen Ql (U) Normal mg/dl Normal [facility] - Microbiology an d Antimicrobial susceptibilityon 09-02-2022 SARS-CoV-2 (COVID-19) RNA LENNIE+probe Ql (Unsp spec) Detected [facility] No Panel Informationon 09-02 Influenza Types A,B Rapid (Clinic) Not detected [facility] Basophil percentageon 2021 Basophil percentage 0 SEEN /hpf 0-5 [facility] Work Phone: Chloride [Moles/Vol] 107 mmol/L 98-107 [facility] Work Phone: Cholesterol [Mass/Vol] 222 mg/dL <200 [facility] Work Phone: Comment on above: <200 mg/dL Desirable 200-240 mg/dL Borderline >240 mg/dL High Risk Glucose [Mass/Vol] 128 mg/dL 74-106 [facility] Work Phone: Comment on above: Fasting Glucose resu lt greater than or equal to 126 mg/dL suggests DIABETES MELLITUS per A.D.A. criteria. Potassium [Moles/Vol] 4.1 mmol/L 3.5-5.1 [facility] Work Phone: Sodium [Moles/Vol] 140 mmol/L 136-145 [facility] Work Phone: Triglyceride [Mass/Vol] 73 mg/dL <199 [facility] Work Phone: Comment on above: The drugs N-Acetylcy steine and Metamizole may falsely depress this assay.Serum Triglycerides Reference Interval Normal <150 mg/dL Borderline high 150 - 199 mg/dL High 200 - 499 mg/dL Very High > or = 500 mg/dL Bilirubin Test strip Ql (U)o n 07-06-2022 Bilirubin Ql (U) Negative Negative [facility] Work Phone: Ketones Test strip Ql (U)on 07-06-2022 Ketones Ql (U) 5 mg/dl Negative [facility] Work Phone: Laboratory - Chemistry and C hemistry - challengeon 07-06-2022 CO2 [Moles/Vol] 26.0 mmol/L 21.0-32.0 [facility] Work Phone: Urea nitrogen/Creatinine [Mass ratio] 18.9 mg/mg 07-06 [facility] Work Phone: Mucus LM Ql (Urine sed)on Mucus Ql (Urine sed) 0 SEEN /hpf [facility] Work Phone: Nitrite Test strip Ql (U)on 07-06-2022 Nitrite Ql (U) Negative Negative [facility] Work Phone: No Panel Informationon 07-06 Estimated GFR (MDRD) Amer 64 mL/min >60 [facility] Work Phone: Comment on above: GFR Calc Estimated GFR (MDRD) Non-Af Amer 53 mL/min >60 [facility] Work Phone: Comment on above: Non- GFR Calc Protein Test strip Ql (U)on 07-06-2022 Protein Ql (U) Negative Negative [facility] Work Phone: Serum or plasma calcium kenny urement (mass/volume)on 07-06-2022 Calcium [Mass/Vol] 9.3 mg/dL 8.5-10.1 [facility] Work Phone: Serum or plasma cholesterol in HDL measurement (mass/volume)on 07-06-2022 Cholesterol in HDL [Mass/Vol] 76 mg/dL >40 [facility] Work Phone: Comment on above: The drugs N-Acetylcy steine and Metamizole may falsely depress this assay. Reference Range HDL <40 mg/dL Low HDL Cholesterol HDL >or= 60 mg/dL High HDL Cholesterol Serum or plasma cholesterol in VLDL measurement (mass/volume)on 07-06-2022 Cholesterol in VLDL [Mass/Vol] 15 mg/dL 5-40 [facility] Work Phone: Serum or plasma creatinine m easurement (mass/volume)on 07-06-2022 Creatinine [Mass/Vol] 1.06 mg/dL 0.55-1.02 [facility] Work Phone: Comment on above: The validity of the calculated GFR & GFRAA in patients over 70 years has not been determined. Clinical correlation is essential. Serum or plasma low density lipoprotein (LDL) cholesterol measurement (mass/volume)on 07-06-2022 Cholesterol in LDL [Mass/Vol] 131 mg/dL 0-130 [facility] Work Phone: Serum or plasma urea nitroge n measurement (mass/volume)on 07-06-2022 Urea nitrogen [Mass/Vol] 20 mg/dL 7-18 [facility] Work Phone: Squamous epithelial cells de tection in urine sediment by light microscopyon 07-06-2022 Epithelial cells.squamous LM Ql (Urine sed) 0 SEEN /hpf 5- [facility] Work Phone: Thin prep Papanicolaou smear with manual screeningon 07-06-2022 Thin prep Papanicolaou smear with manual screening 7 - [facility] Work Phone: Urine blood detectionon 06-18 RBC Ql (U) 25 /ul Negative [facility] Work Phone: RBC Ql (U) 0 SEEN /hpf 0-5 [facility] Work Phone: Urine clarityon 07-06-2022 Clarity (U) Clear Clear [facility] Work Phone: Urine color determinationon 07-06-2022 Color (U) Yellow Yellow [facility] Work Phone: Urine glucose detectionon Glucose Ql (U) Normal mg/dl Normal [facility] Work Phone: Urine leukocyte esterase det ection by dipstickon 07-06-2022 Leukocyte esterase Test strip Ql (U) Negative Negative [facility] Work Phone: Urine pHon 07-06-2022 pH (U) 6.5 [pH] 5.0 - 8.0 [facility] Work Phone: Urine sediment bacteria coun t by microscopy (number/high power field)on 07-06-2022 Bacteria LM.HPF (Urine sed) [#/Area] 2 /[HPF] None Seen [facility] Work Phone: Urine specific gravity measu rementon 07-06-2022 Specific gravity (U) [Rel density] 1.015 1.002-1.030 [facility] Work Phone: Urobilinogen Auto test strip Ql (U)on 07-06-2022 Urobilinogen Ql (U) Normal mg/dl Normal [facility] Work Phone: Absolute lymphocyte counton 02-28-2022 Lymphocytes Auto (Unsp spec) [#/Vol] 1.19 10*3/uL 0.83-4.51 [facility] Work Phone: Basophil percentageon 2021 Basophils/100 WBC (Bld) 0.7 % 0-1 [facility] Work Phone: Bilirubin [Mass/Vol] 0.40 mg/dL 0.20-1.00 [facility] Work Phone: Comment on above: For patients on eltr ombopag therapy, use of Dimension Amlin TBIL is not recommended. Chloride [Moles/Vol] 107 mmol/L 98-107 [facility]: [phone] Cholesterol [Mass/Vol] 254 mg/dL <200 [facility] Work Phone: Comment on above: <200 mg/dL Desirable 200-240 mg/dL Borderline >240 mg/dL High Risk Eosinophils/100 WBC (Bld) 0.8 % 0-5 [facility] Work Phone: Glucose [Mass/Vol] 84 mg/dL 74-106 [facility] Work Phone: [phone] Neutrophils (Bld) [#/Vol] 4.2 10*3/uL 2.0-7.7 [facility] Work Phone: [phone] Neutrophils/100 WBC (Bld) 71.1 % 47-70 [facility] Work Phone: [phone] Potassium [Moles/Vol] 3.8 mmol/L 3.5-5.1 [facility] Work Phone: [phone] Protein [Mass/Vol] 7.7 g/dL 6.4-8.2 [facility] Work Phone: [phone] Sodium [Moles/Vol] 141 mmol/L 136-145 [facility] Work Phone: [phone] Triglyceride [Mass/Vol] 91 mg/dL <199 [facility] Work Phone: Comment on above: The drugs N-Acetylcy steine and Metamizole may falsely depress this assay.Serum Triglycerides Reference Interval Normal <150 mg/dL Borderline high 150 - 199 mg/dL High 200 - 499 mg/dL Very High > or = 500 mg/dL WBC (Bld) [#/Vol] 5.9 10*3/uL 4.4-11.0 [facility] Work Phone: [phone] Blood erythrocytes count (nu mber/volume)on 02-28-2022 RBC (Bld) [#/Vol] 4.05 10*6/uL 4.2-5.4 [facility] Work Phone: Blood hemoglobin measurement (mass/volume)on 02-28-2022 Hemoglobin (Bld) [Mass/Vol] 12.6 g/dL 12.0-15.0 [facility] Work Phone: Blood lymphocytes/100 leukoc yteson 02-28-2022 Lymphocytes/100 WBC (Bld) 20.1 % 19-41 [facility] Work Phone: Blood monocytes/100 leukocyt eson 02-28-2022 Monocytes/100 WBC (Bld) 7.1 % 0-10 [facility] Work Phone: Blood platelet mean volumeon 02-28-2022 Platelet mean volume (Bld) [Entitic vol] 10.6 fL 6.2-12.0 [facility] Work Phone: Determination of erythrocyte mean corpuscular volume (MCV)on 02-28-2022 MCV (RBC) [Entitic vol] 94.3 fL 81-99 [facility] Work Phone: Hematocrit Auto (Bld) [Volum e fraction]on 02-28-2022 Hematocrit (Bld) [Volume fraction] 38.2 % 37-47 [facility] Work Phone: Laboratory - Chemistry and C hemistry - challengeon 02-28-2022 ALP [Catalytic activity/Vol] 69 U/L 45-117 [facility] Work Phone: ALT [Catalytic activity/Vol] 20 U/L 13-56 [facility] Work Phone: CO2 [Moles/Vol] 30.0 mmol/L 21.0-32.0 [facility] Work Phone: Globulin (S) [Mass/Vol] 3.8 g/dL 2.2-4.2 [facility] Work Phone: Urea nitrogen/Creatinine [Mass ratio] 19.2 mg/mg 10-20 [facility] Work Phone: Laboratory - Hematology and Cell countson 02-28-2022 Erythrocyte distribution width (RBC) [Entitic vol] 44.9 fL 35.1-43.9 [facility] Work Phone: Erythrocyte distribution width (RBC) [Ratio] 12.9 % 11.6-14.6 [facility] Work Phone: Immature granulocytes/100 WBC (Bld) 0.200 % 0.0-0.9 [facility] Work Phone: Comment on above: IG% - Immature Granu locytes (promyelocytes, myelocytes and metamyelocytes) > 1% indicates that a LEFT SHIFT is Present. MCH (RBC) [Entitic mass] 31.1 pg 27.0-32.0 [facility] Work Phone: Nucleated RBC/100 WBC (Bld) [Ratio] 0 % 0-5 [facility] Work Phone: MCHC Auto (RBC) [Mass/Vol]on 02-28-2022 MCHC (RBC) [Mass/Vol] 33.0 g/dL 32-36 [facility] Work Phone: No Panel Informationon 02-28 Estimated GFR (MDRD) Amer 66 mL/min >60 [facility] Work Phone: Comment on above: GFR Calc Estimated GFR (MDRD) Non-Af Amer 54 mL/min >60 [facility] Work Phone: Comment on above: Non- GFR Calc Platelets bldon 02-28-2022 Platelets (Bld) [#/Vol] 219 10*3/uL 150-450 [facility] Work Phone: Serum or plasma albumin kenny urement (mass/volume)on 02-28-2022 Albumin [Mass/Vol] 3.9 g/dL 3.2-5.0 [facility] Work Phone: Serum or plasma albumin/glob ulin mass ratioon 02-28-2022 Albumin/Globulin [Mass ratio] 1.0 {ratio} 0.9-2.4 [facility] Work Phone: Serum or plasma calcium kenny urement (mass/volume)on 02-28-2022 Calcium [Mass/Vol] 9.4 mg/dL 8.5-10.1 [facility] Work Phone: Serum or plasma cholesterol in HDL measurement (mass/volume)on 02-28-2022 Cholesterol in HDL [Mass/Vol] 71 mg/dL >40 [facility] Work Phone: Comment on above: The drugs N-Acetylcy steine and Metamizole may falsely depress this assay. Reference Range HDL <40 mg/dL Low HDL Cholesterol HDL >or= 60 mg/dL High HDL Cholesterol Serum or plasma cholesterol in VLDL measurement (mass/volume)on 02-28-2022 Cholesterol in VLDL [Mass/Vol] 18 mg/dL 5-40 [facility] Work Phone: Serum or plasma creatinine m easurement (mass/volume)on 02-28-2022 Creatinine [Mass/Vol] 1.04 mg/dL 0.55-1.02 [facility] Work Phone: Comment on above: The validity of the calculated GFR & GFRAA in patients over 70 years has not been determined. Clinical correlation is essential. Serum or plasma low density lipoprotein (LDL) cholesterol measurement (mass/volume)on 02-28-2022 Cholesterol in LDL [Mass/Vol] 165 mg/dL 0-130 [facility] Work Phone: Serum or plasma urea nitroge n measurement (mass/volume)on 02-28-2022 Urea nitrogen [Mass/Vol] 20 mg/dL 7-18 [facility] Work Phone: Thin prep Papanicolaou smear with manual screeningon 02-28-2022 Thin prep Papanicolaou smear with manual screening 18 U/L 15-37 [facility] Work Phone: Thin prep Papanicolaou smear with manual screening 4 5-15 [facility] Work Phone: Vital Signs Date Time Vital Sign Value Performing Clinician Facility 04-16-2025 14:45-0400 Body height 152.[address] Ulysses Spencer MD Work Phone: [phone] [place] [address] 04-16-2025 14:45-0400 Body mass index (BMI) [Ratio] 25.5 kg/m2 Dr. Ulysses Spencer MD Work Phone: [phone] [place] [address] 04-16-2025 14:45-0400 Body weight 59.[address] Ulysses Spencer MD Work Phone: [phone] [place] [address] 04-16-2025 14:45-0400 Diastolic blood pressure 59 mm[Hg] Dr. Ulysses Spencer MD Work Phone: [phone] [place] [address] 04-16-2025 14:45-0400 Heart rate 10 /min Dr. Ulysses Spencer MD Work Phone: [phone] [place] [address] 04-16-2025 14:45-0400 Respiratory rate 17 /min Dr. Ulysses Spencer MD Work Phone: [phone] [place] [address] 04-16-2025 14:45-0400 SaO2% (BldA) [Mass fraction] 95 % Dr. Ulysses Spencer MD Work Phone: [phone] [place] [address] 04-16-2025 14:45-0400 Systolic blood pressure 101 mm[Hg] Dr. Ulysses Spencer MD Work Phone: [phone] [place] [address] 02-20-2025 07:15-0400 Body mass index (BMI) [Ratio] 24.7 kg/m2 Dr. Ulysses Spencer MD Work Phone: [phone] [place] [address] 02-20-2025 07:15-0400 Body weight 57.[address] Ulysses Spencer MD Work Phone: [phone] [place] [address] 02-20-2025 07:15-0400 Diastolic blood pressure 69 mm[Hg] Dr. Ulysses Spencer MD Work Phone: [phone] [place] [address] 02-20-2025 07:15-0400 Heart rate 86 /min Dr. Ulysses Spencer MD Work Phone: [facility] 02-20-2025 07:15-0400 Respiratory rate 18 /min Dr. Ulysses Spencer MD Work Phone: [phone] [address] [place], [place] [address] 02-20-2025 07:15-0400 SaO2% (BldA) [Mass fraction] 99 % Dr. Ulysses Spencer MD Work Phone: 1(173)[phone] [place] [address] 02-20-2025 07:15-0400 Systolic blood pressure 104 mm[Hg] Dr. Ulysses Spencer MD Work Phone: 1(090)573-758658 [place] [address] 01-06-2025 08:08-0400 Body height 152.[address] Ulysses Spencer MD Work Phone: 4(521)358-297358 [place] [address] 01-06-2025 08:08-0400 Body mass index (BMI) [Ratio] 25.4 kg/m2 Dr. Ulysses Spencer MD Work Phone: 5(657)657-653358 [place] [address] 01-06-2025 08:08-0400 Body weight 58.[address] Ulysses Spencer MD Work Phone: 5(173)[phone] [place] [address] 01-06-2025 08:08-0400 Diastolic blood pressure 90 mm[Hg] Dr. Ulysses Spencer MD Work Phone: 7(015)887-177858 [place] [address] 01-06-2025 08:08-0400 Heart rate 75 /min Dr. Ulysses Spencer MD Work Phone: 3(084)573-934158 [place] [address] 01-06-2025 08:08-0400 Respiratory rate 16 /min Dr. Ulysses Spencer MD Work Phone: 5(782)375-214158 [place] [address] 01-06-2025 08:08-0400 Systolic blood pressure 154 mm[Hg] Dr. Ulysses Spencer MD Work Phone: 1(738)[phone] [place] [address] 12-25-2023 09:40-0400 Body height 152.[address] Ulysses Spencer Work Phone: 7(219)511-919858 [place] [address] 12-25-2023 09:40-0400 Body mass index (BMI) [Ratio] 26.7 kg/m2 Dr. Ulysses Spencer Work Phone: [facility] 12-25-2023 09:40-0400 Body weight 62.[address] Ulysses Spencer Work Phone: [facility] 12-25-2023 09:40-0400 Diastolic blood pressure 63 mm[Hg] Dr. Ulysses Spencer Work Phone: [facility] 12-25-2023 09:40-0400 Heart rate 87 /min Dr. Ulysses Spencer Work Phone: [facility] 12-25-2023 09:40-0400 Respiratory rate 18 /min Dr. Ulysses Spencer Work Phone: [facility] 12-25-2023 09:40-0400 SaO2% (BldA) [Mass fraction] 96 % Dr. Ulysses Spencer Work Phone: [facility] 12-25-2023 09:40-0400 Systolic blood pressure 100 mm[Hg] Dr. Ulysses Spencer Work Phone: [facility] 12-18-2023 16:46-0400 Heart rate 118 /min 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 [facility] 12-18-2023 15:35-0400 Blood Pressure Location 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 [facility] 12-18-2023 15:35-0400 Blood Pressure Method 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 [facility] 12-18-2023 15:35-0400 Diastolic Blood Pressure Non-Invasive 70 mm[Hg] 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 [facility] 12-18-2023 15:35-0400 Heart rate 103 /min 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 [facility] 12-18-2023 15:35-0400 Systolic Blood Pressure Non-Invasive 110 mm[Hg] SANTIAGO GALLOWAYGarry 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-MEDICAL RECRUITER [facility] 12-18-2023 14:35-0400 Body temperature 98.24 [degF] 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 [facility] 12-18-2023 14:35-0400 Diastolic Blood Pressure Non-Invasive 78 mm[Hg] SANTIAGO LIEBERMANMIKA 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-MEDICAL RECRUITER [facility] 12-18-2023 14:35-0400 Heart rate 90 /min SANTIAGO GALLOWAYGarry 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-MEDICAL RECRUITER [facility] 12-18-2023 14:35-0400 Reason For Taking VItal Signs SANTIAGO LIEBERMANMIKA 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-MEDICAL RECRUITER [facility] 12-18-2023 14:35-0400 Respiratory rate 18 /min SANTIAGO GALLOWAYGarry 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-MEDICAL RECRUITER [facility] 12-18-2023 14:35-0400 Systolic Blood Pressure Non-Invasive 100 mm[Hg] SANTIAGO GALLOWAYGarry 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-MEDICAL RECRUITER [facility] 12-18-2023 11:28-0400 Blood Pressure Cuff Size SANTIAGO GALLOWAYGarry 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-MEDICAL RECRUITER [facility] 12-18-2023 11:28-0400 Blood Pressure Location SANTIAGO GALLOWAYGarry 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-MEDICAL RECRUITER [facility] 12-18-2023 11:28-0400 Blood Pressure Method SANTIAGO GALLOWAYGarry 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-MEDICAL RECRUITER [facility] 12-18-2023 11:28-0400 Diastolic Blood Pressure Non-Invasive 58 mm[Hg] SANTIAGO LIEBERMANMIKA 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-MEDICAL RECRUITER [facility] 12-18-2023 11:28-0400 Systolic Blood Pressure Non-Invasive 108 mm[Hg] 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 [facility] 12-18-2023 11:19-0400 Body temperature 97.52 [degF] 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 [facility] 12-18-2023 11:19-0400 Heart rate 91 /min 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 [facility] 12-18-2023 11:19-0400 Reason For Taking VItal Signs SANTIAGO AKHN 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-MEDICAL RECRUITER [facility] 12-18-2023 11:19-0400 Respiratory rate 18 /min 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 [facility] 12-18-2023 09:45-0400 Heart rate 109 /min 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 [facility] 12-18-2023 09:07-0400 Heart rate 108 /min 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 [facility] 12-18-2023 06:38-0400 Body temperature 98.06 [degF] 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 [facility] 12-18-2023 06:38-0400 Reason For Taking VItal Signs 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 [facility] 12-18-2023 06:38-0400 Respiratory rate 18 /min 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 [facility] 12-17-2023 18:36-0400 Body height 149.9 cm 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 [facility] 12-17-2023 18:36-0400 Body weight 61 kg 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 [facility] 12-17-2023 18:36-0400 Body weight 27.15 kg/m2 SANTIAGOAYALA KAHN 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-MEDICAL RECRUITER [facility] 12-17-2023 18:33-0400 Body height 149.9 cm 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 [facility] 12-17-2023 18:33-0400 Body weight 61 kg SANTIAGOAYALA KAHN 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-MEDICAL RECRUITER [facility] 12-17-2023 18:33-0400 Body weight 27.15 kg/m2 SANTIAGOAYALA GALLOWAYN 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-MEDICAL RECRUITER [address] [place] [address] 12-17-2023 14:42-0400 Body weight 61 kg 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 [facility] 12-17-2023 14:42-0400 Heart rate 118 /min 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 [facility] 10-31-2023 13:31-0500 Body height 152.[address] Ulysses Spencer Work Phone: [facility] 10-31-2023 13:31-0500 Body mass index (BMI) [Ratio] 27.9 kg/m2 Dr. Ulysses Spencer Work Phone: [facility] 10-31-2023 13:31-0500 Body weight 64.[address] Ulysses Spencer Work Phone: [facility] 10-31-2023 13:31-0500 Diastolic blood pressure 70 mm[Hg] Dr. Ulysses Spencer Work Phone: [facility] 10-31-2023 13:31-0500 Heart rate 104 /min Dr. Ulysses Spencer Work Phone: [facility] 10-31-2023 13:31-0500 Respiratory rate 18 /min Dr. Ulysses Spencer Work Phone: [facility] 10-31-2023 13:31-0500 SaO2% (BldA) [Mass fraction] 98 % Dr. Ulysses Spencer Work Phone: [facility] 10-31-2023 13:31-0500 Systolic blood pressure 111 mm[Hg] Dr. Ulysses Spencer Work Phone: [facility] 08-20-2023 15:05-0500 Body height 152.[address] Ulysses Spencer Work Phone: [facility] 08-20-2023 15:05-0500 Body mass index (BMI) [Ratio] 31 kg/m2 Dr. Ulysses Spencer Work Phone: [facility] 08-20-2023 15:05-0500 Body weight 72.[address] Ulysses Spencer Work Phone: [facility] 08-20-2023 15:05-0500 Diastolic blood pressure 78 mm[Hg] Dr. Ulysses Spencer Work Phone: [facility] 08-20-2023 15:05-0500 Heart rate 108 /min Dr. Ulysses Spencer Work Phone: [facility] 08-20-2023 15:05-0500 Respiratory rate 18 /min Dr. Ulysses Spencer Work Phone: [facility] 08-20-2023 15:05-0500 Systolic blood pressure 112 mm[Hg] Dr. Ulysses Spencer Work Phone: [facility] 09-28-2022 22:56-0500 Diastolic blood pressure 102 mm[Hg] Dr. Ulysses Spencer Work Phone: [facility] 09-28-2022 22:56-0500 Heart rate 90 /min Dr. Ulysses Spencer Work Phone: [facility] 09-28-2022 22:56-0500 Respiratory rate 15 /min Dr. Ulysses Spencer Work Phone: [facility] 09-28-2022 22:56-0500 SaO2% (BldA) [Mass fraction] 98 % Dr. Ulysses Spencer Work Phone: [facility] 09-28-2022 22:56-0500 Systolic blood pressure 182 mm[Hg] Dr. Ulysses Spencer Work Phone: [facility] 09-28-2022 21:43-0500 Body height 152.[address] Ulysses Spencer Work Phone: [facility] 09-28-2022 21:43-0500 Body mass index (BMI) [Ratio] 29.2 kg/m2 Dr. Ulysses Spencer Work Phone: [facility] 09-28-2022 21:43-0500 Body temperature 98.1 [degF] Dr. Ulysses Spencer Work Phone: [facility] 09-28-2022 21:43-0500 Body weight 68.[address] Ulysses Spencer Work Phone: [facility] 09-02-2022 11:37-0500 Body temperature 98.6 [degF] Dr. Ulysses Spencer Work Phone: [facility] 09-02-2022 11:37-0500 Diastolic blood pressure 62 mm[Hg] Dr. Ulysses Spencer Work Phone: [facility] 09-02-2022 11:37-0500 Heart rate 85 /min Dr. Ulysses Spencer Work Phone: [facility] 09-02-2022 11:37-0500 Respiratory rate 16 /min Dr. Ulysses Spencer Work Phone: [facility] 09-02-2022 11:37-0500 SaO2% (BldA) [Mass fraction] 96 % Dr. Ulysses Spencer Work Phone: [facility] 09-02-2022 11:37-0500 Systolic blood pressure 118 mm[Hg] Dr. Ulysses Spencer Work Phone: [facility] Encounters Encounter Date Encounter Type Care Provider Facility Start: 07-28-2025 End: 07-28-2025 ambulatory Ulysses Spencer Facility:[facility] Start: 07-14-2025 End: 07-14-2025 ambulatory PETERSON SHELLEY Facility:[facility] Start: 06-09-2025 End: 06-09-[address] Ulysses Spencer MD Work Phone: -[facility] Start: 06-09-2025 End: 06-09-[address] Ulysses Spencer MD -[facility] Start: 06-09-2025 End: 06-09-2025 ambulatory Ulysses Spencer Facility:[facility] Start: 04-16-2025 End: 04-16-[address] Stevie Sheldon MD -[facility] Work Phone: Start: 04-16-2025 End: 04-16-[address] Ulysses Spencer MD Work Phone: -[facility] Start: 04-08-2025 End: 04-08-2025 Telephone encounter Peterson Shelley MD Work Phone: [facility] Comment on above: Appointment (Appoint ment) Start: 04-02-2025 Non-patient / Non-visit Dr. Larry BEATTY -[facility] Start: 04-02-2025 End: 04-02-[address] Ulysses Spencer MD Work Phone: -[facility] Start: 04-02-2025 End: 04-02-2025 Patient encounter procedure Matilde BRUNER -[facility] Work Phone: Start: 04-02-2025 End: 04-02-2025 ambulatory Matilde BRUNER Facility:[facility] Start: 03-18-2025 End: 03-18-[address] Ulysses Spencer MD Work Phone: -[facility] Start: 03-18-2025 End: 03-18-2025 Patient encounter procedure Matilde Correia PA -[facility] Work Phone: Start: 03-18-2025 End: 03-18-2025 ambulatory Matilde BRUNER Facility:[facility] Start: 02-20-2025 End: 02-20-2025 Patient encounter procedure Matilde Correia PA -[facility] Work Phone: Start: 02-20-2025 End: 02-20-[address] Ulysses Spencer MD Work Phone: [facility] Work Phone: Start: 01-06-2025 End: 01-06-2025 Patient encounter procedure Matilde BRUNER -[facility] Work Phone: Start: 01-06-2025 End: 01-06-2025 ambulatory Ulysses Spencer Facility:[facility] Start: 01-11-2024 End: 01-11-[address] Ulysses Spencer Work Phone: [facility] Work Phone: Start: 01-11-2024 End: 01-11-[address] Ulysses Spencer Work Phone: [facility] Work Phone: Start: 12-27-2023 End: 12-27-[address] Ulysses Spencer Work Phone: [facility] Work Phone: Start: 12-27-2023 End: 12-27-[address] Ulysses Spencer Work Phone: [facility] Start: 12-25-2023 End: 12-25-[address] Ulysses Spencer Work Phone: [facility] Work Phone: Start: 12-17-2023 End: 12-18-2023 Evaluation and management of inpatient DR FRITZ TODD DO Facility:[facility] Start: 12-17-2023 End: 12-18-2023 Evaluation and management of inpatient 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 [facility] Start: 12-12-2023 End: 12-12-[address] Ulysses Spencer Work Phone: [facility] Work Phone: Start: 12-12-2023 End: 12-12-[address] Ulysses Spencer Work Phone: [facility] Start: 10-31-2023 End: 10-31-[address] Ulysses Spencer Work Phone: [facility] Work Phone: Start: 10-31-2023 End: 10-31-[address] Ulysses Spencer Work Phone: [facility] Work Phone: Start: 10-04-2023 End: 10-04-[address] [facility] Start: 09-19-2023 End: 09-19-[address] Ulysses Spencer Work Phone: [facility] Work Phone: Start: 09-19-2023 End: 09-19-[address] Ulysses Spencer Work Phone: [facility]Laboratory Work Phone: Start: 09-11-2023 End: 09-11-[address] Ulysses Spencer Work Phone: [facility] Work Phone: Start: 09-11-2023 End: 09-11-[address] Ulysses Spencer Work Phone: [facility] Work Phone: Start: 09-11-2023 End: 09-11-[address] Ulysses Spencer Work Phone: [facility] Work Phone: Start: 09-11-2023 End: 09-11-[address] Ulysses Spencer Work Phone: [facility] Start: 09-04-2023 Non-patient / Non-visit Dr. Sanjuanita Spencer Work Phone: [facility] Start: 09-04-2023 End: 09-04-[address] Ulysses Spencer Work Phone: [facility] Work Phone: Start: 09-04-2023 End: 09-04-[address] [facility]lysses Spencer [facility] Start: 08-20-2023 End: 08-20-[address] Ulysses Spencer Work Phone: [facility] Work Phone: Start: 08-07-2023 End: 08-07-2023 ambulatory [facility] Work Phone: Start: 08-07-2023 End: 08-07-2023 Patient encounter procedure [facility] Start: 07-11-2023 End: 07-11-2023 ambulatory [facility] Work Phone: Start: 07-11-2023 End: 07-11-2023 Patient encounter procedure [facility] Start: 03-16-2023 End: 03-16-2023 ambulatory [facility] Work Phone: Start: 03-16-2023 End: 03-16-2023 Patient encounter procedure [facility] Work Phone: Start: 11-09-2022 End: 11-09-[address] Ulysses Spencer Work Phone: [facility] Work Phone: Start: 11-09-2022 End: 11-09-[address] Ulysses Spencer Work Phone: [facility] Start: 09-28-2022 End: 09-28-2022 Emergency department patient visit Dr. Ulysses Spencer [facility] Start: 09-02-2022 End: 09-02-[address] Ulysses Spencer Work Phone: [facility] Start: 07-06-2022 End: 07-06-2022 ambulatory [facility] Work Phone: Start: 07-06-2022 End: 07-06-2022 Patient encounter procedure [facility] Start: 02-28-2022 End: 02-28-2022 Patient encounter procedure [facility] Procedures Date Procedure Procedure Detail Performing Clinician Start: 06-09-[address] Ulysses Spencer MD Work Phone: Start: 06-09-2025 Total iron binding c apacity measurement Dr. Ulysses Spencer MD Work Phone: Start: 06-09-2025 Vitamin D, 25-hydrox y measurement Dr. Ulysses Spencer MD Work Phone: Comment on above: Vitamin D StatusDefi ciency: <20 ng/mL (50nmol/L)Insufficiency: 20-30 ng/mL (50-75 nmol/L)Sufficiency: 30-100 ng/mL (75-250 nmol/L)Toxicity: >100 ng/mL (>250 nmol/L) Start: 03-18-2025 CT angiography of ch est with contrast Dr. Ulysses Spencer MD Work Phone: Start: 09-11-2023 Dual energy X-ray absorptiometry Dr. Ulysses Spencer Work Phone: Start: 09-28-2022 CT of head without contrast Dr. Ulysses Spencer Work Phone: Bacteria identificat ion test Dr. Ulysses Spencer Work Phone: Cataract (disorder) SANTIAGO CAMILO 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 Comment on above: bilateral eyes Dentition (body structure) R MARCOS KAHN 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 Plan of Treatment Date Care Activity Detail Author Start: 08-17-2025 ambulatory Ambulatory Facility:[facility] Start: 09-11-2023 Dual energy X-ray absorptiometry Dexa Bone Density Study [facility] Ambulatory ECG [facility] CTA Chest vessels WO and W contrast IV [facility] Patient Education ED Scalp Contusion [facility] Work Phone: Patient referral [facility] Work Phone: [facility] Heart limited [facility] Immunizations Immunization Date Immunization Notes Care Provider Napoleon sauceda 07-11-2023 influenza virus vacc ine, unspecified formulation SANTIAGO KAHN 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 [facility] 06-30-2021 SARS-CoV-2 mRNA (tozinameran) vaccine SANTIAGO KAHN 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 [facility] 12-14-2020 Covid (Pfizer) [facility] 11-23-2020 Covid (Pfizer) [facility] Comment on above: Result Comment: 2023: [id number] 07-19-2020 influenza virus vacc ine, unspecified formulation 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 [facility] 06-11-2018 influenza virus vacc ine, unspecified formulation 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 [facility] 08-20-2015 pneumococcal conjuga te vaccine, 13 valent 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 [facility] 09-17-2014 pneumococcal polysaccharide vaccine, 23 valent 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 2023 Medicare [id number] 2023 Unknown [id number] 2003 Unknown [id number] 1945 Unknown [id number] Medicare [id number] Unknown [id number] Unknown [id number] Unknown [id number] Unknown [id number] Unknown [id number] Unknown [id number] Unknown [id number] Unknown [id number] Unknown [id number] Unknown [id number] Social History Date Type Detail Facility Start: 10-14-2021 End: 12-25-2023 Tobacco smoking status NHIS Unknown if ever smoked [facility] Start: 08-29-2018 Non-smoker [facility] Start: 1945 Sex Assigned At Female [facility] Start: 12-17-2023 End: 01-06-2025 Tobacco smoking status Never smoked tobacco (finding) [facility] Start: 1945 Sex assigned at Not on file [facility] Gender identity Not on file [facility] Functional Status Date Assessment Result Facility 12-18-2023 Functional Status Nurse Safety C denisse q2hrs Performed 7am-7pm [facility] 12-18-2023 Functional Status Lunch Percent 100 [facility] 12-18-2023 Functional Status Repositions self [facility] 12-18-2023 Functional Status Multilevel home [facility] 12-18-2023 Functional Status [facility] 12-18-2023 Functional Status [facility] 12-17-2023 Functional Status [facility] 12-17-2023 Functional Status Environmental Safety Implemented Adequate room lighting, Bed in low position, Call device within reach [facility] Mental Status Date Assessment Result Facility 12-18-2023 Mental Status Oriented x 4 [facility] 12-18-2023 Mental Status [facility] 12-17-2023 Mental Status [facility] Clinical Notes 12-17-2023 to 07-14-2025 Telephone Encounter - Andie Drew - 04/08/2025 2:47 PM EDTTelephone Encounter - Andie Drew - 04/08/2025 2:47 PM EDT Note Date & Type Note Facility 07-14-2025 Note HNO ID: [id number] Author: IDA CHRISTENSEN APRN.CNP Service: ? Author Type: Nurse Practitioner Type: Progress Notes Filed: 07/14/2025 14:56 Note Text: Procedure Type: Ascending Aorta Only Operative Outcome Estimate % Operative Mortality 3.63% Morbidity AND Mortality 17.1% Stroke 5.1% Renal Failure 2.51% Reoperation 4.02% Prolonged Ventilation 14.3% Deep Sternal Wound Infection NA Long Hospital Stay (>14 days) 13.5% Short Hospital Stay (<6 days)* 20.4% *higher values reflect a better outcome Clinical Summary Planned Surgery: Ascending Aorta Only, Elective, First cardiovascular surgery, Planned Circulatory Arrest Demographics: 80 year old, White, female, 60.7kg, 148.5cm, BMI: 27.5 kg/m?, BSA: 1.54m? Substance Abuse: Never smoker Risk Factors / Comorbidities: Hypertension Cardiac Status: Ejection Fraction = 55% Coronary Artery Disease: No coronary symptoms Valve Disease: Mild AR, Mild MR, Mild TR Arrhythmia: Recent A-fib, Unknown [facility] 07-14-2025 Note HNO ID: [id number] Author: PETERSON SHELLEY MD Service: ? Author Type: Physician Type: Progress Notes Filed: 07/14/2025 14:56 Note Text: CARDIOTHORACIC SURGERY CONSULT / HANDP SERVICE DATE: 07/14/2025 SERVICE TIME: 1:18 PM Subjective PRIMARY SERVICE: Cardiothoracic Surgery CHIEF COMPLAINT: Ascending aortic aneurysm HPI: This is a 80 year old woman is referred for evaluation of an ascending aortic aneurysm. The patient is an 80-year-old female with paroxysmal atrial fibrillation, HTN, HLD, CKD stage 3, and anemia presenting for evaluation of a thoracic aortic aneurysm. The patient reports recent onset of dyspnea, most noticeable in the mornings when feeding her cats. She denies any history of emphysema or bronchitis, has never smoked, and has never used inhalers. She denies chest heaviness, pressure, or pain. She also notes that her balance is not as good as it used to be. She was diagnosed with paroxysmal atrial fibrillation a little over a year ago and has been on Eliquis since diagnosis. She is also on metoprolol and digoxin. She reports easy bruising and difficulty stopping bleeding from minor injuries, such as cat scratches. She denies any history of stroke or heart failure. She has a history of HTN, with a recent BP reading in the 130s systolic, which she attributes to being measured over a bulky sweatshirt. She is also being treated for HLD. She denies diabetes, but her eye doctor recently suggested she be checked for it due to a finding on a recent eye exam. She reports intermittent rectal bleeding, with blood visible in the toilet for a few days at a time, then resolving. She denies abdominal pain and any history of colon ulcers or tumors. She was seen by surgery in late March for rectal bleeding, which was thought to be from hemorrhoids, and a colonoscopy was recommended if symptoms persisted. She has not had a recent colonoscopy. She reports being told by her PCP that she has CKD, but has never required dialysis. She denies liver disease, hepatitis, cirrhosis, vascular disease, or procedures on the blood vessels in her legs. She denies leg swelling. 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 She lives independently, does her own grocery shopping, and still drives. PAST MEDICAL HISTORY Diagnosis Date A-fib (HCC) Anemia Aortic root dilatation CKD (chronic kidney disease) stage 3, GFR 30-59 ml/min (HCC) PAST SURGICAL HISTORY Procedure Laterality Date LASER SURGERY OF EYE 2007 FAMILY HISTORY Problem Relation Age of Onset Diabetes Mother Hypertension Mother Heart disease Father Diabetes Father SOCIAL HISTORY[1] Prescriptions Prior to Admission[2] ELIQUIS 5 mg tab(s) Take 1 tablet by mouth every 12 hours. digoxin (LANOXIN) 125 mcg (0.125 mg) tablet Take 1 tablet by mouth once daily. furosemide (LASIX) 40 mg tablet Take 1 tablet by mouth once daily. metoprolol tartrate, short acting, (LOPRESSOR) 50 mg tablet Take 1 tablet by mouth every 12 hours. rosuvastatin (CRESTOR) 5 mg tablet Take 1 tablet by mouth once daily. Cholecalciferol, Vitamin D3, (VITAMIN D-3) 50 mcg (2,000 unit) cap Take 1 capsule by mouth once daily. ALLERGIES No Known Allergies REVIEW OF SYSTEMS: Constitutional: (+) fatigue Ears/Nose/Mouth/Throat: (+) dry throat Cardiovascular: (-) chest pain, (-) chest pressure, (-) lower extremity swelling Respiratory: (+) dyspnea Gastrointestinal: (+) rectal bleeding, (-) abdominal pain Neurological: (+) balance difficulty Hematologic/Lymphatic: (+) easy bruising Objective PHYSICAL EXAM: General: No acute distress. CV: Irregularly irregular rhythm; strong radial pulses bilaterally; strong carotid pulses bilaterally; no jugular venous distention. Resp: Lungs clear to auscultation bilaterally. Abd: Soft, non-tender. MSK/Ext: No lower extremity edema. Skin: Mild ecchymosis on dorsum of hands. DATA: Diagnostic tests reviewed for today's visit: CTA of chest and echo CTA chest performed 03/18/2025 at [facility] shows: Dilated ascending aorta measuring 5.1 x 5.3 cm maximum cross-section; proximal arch measures up to 5 cm; descending thoracic aorta is nondilated. 2D echo performed on 04/02/2025 at [facility] shows: Normal left ventricle function Normal mitral valve with 1+ MR Normal tricuspid valve with mild TR Aortic valve trileaflet with mild AI Mildly dilated aortic root Assessment AND Plan Aneurysm of ascending aorta without rupture Ashley Crews is a 80-year-old woman with paroxysmal atrial fibrillation on chronic anticoagulation without complication who was found to have an ascending aortic aneurysm which extends to the proximal aortic arch with a trileaflet and normally functional aortic valve, normal LV function. She is indication for resection of placement of the acing aorta and proximal arch (hemiarch procedure). The aortic root does not need t (more content not included)... [facility] 04-08-2025 Telephone encounter Note Left to schedule OV. Referral from [facility]/Matilde BRUNER #[phone] - Thoracic aortic aneurysm (ECHO & CTA uploaded) [facility] 04-08-2025 Miscellaneous Notes Left VM to schedule OV. Referral from [facility]/Matilde BRUNER #[phone] - Thoracic aortic aneurysm (ECHO & CTA uploaded) documented in this encounter [facility] 03-19-2025 Radiology Diagnostic study note [facility] Imaging Services [address] [place] [address] CTA Chest W/WO Contrast MR#: [id number] Acct: [id number] Name: ASHLEY CREWS Rep #: [id number] : 1945 F 79 From: Vanessa Booker MD PCP: Dr. Ulysses Spencer MD Status: RE G CLI Study:CTA Chest W/WO Contrast Date of Exam: 03/18/25 Exam# [id number] Ordering Dr: Matilde Rutherford PROCEDURE: CTA CHEST W/WO CONTRAST 03/18/2025 REASON FOR EXAM: KNOWN TAA TECHNIQUE: CTA CHEST W/WO CONTRAST Multiplanar Sagittal and Coronal images were obtained. CONTRAST: Isovue 370 VOLUME: 75 mL One or more dose reduction techniques were used (e.g., Automated exposure control, adjustment of the mA and/or kV according to patient size, use of iterative reconstruction technique). RADIATION DOSE SUMMARY: CTDlvol: 14 mGy DLP: 193 mGycm COMPARISON: No FINDINGS: Unremarkable base of neck and axilla. Thoracic spine scoliosis and degeneration. Normal esophagus. Cardiac enlargement. Small pericardial effusion. No central pulmonary embolism. Dilated ascending aorta, measuring 5.1 x 5.3 cm maximum cross-section. Proximalarch measures up to 5 cm. Distal arch measures up to 3.6 cm. The descending thoracic aorta is nondilated. At the thoracoabdominal junction, aorta measures 2.8 x 3.2 cm, borderline prominent. No significant calcified plaque. No dissection. No acute chest wall findings. No acute upper abdominal findings. Central airways are patent. Basilar atelectasis. No consolidation, effusion, or pneumothorax. CT/CTA Chest W/WO Contrast IMPRESSION: Ascending aortic aneurysm, measuring 5.1 x 5.3 cm maximum cross-section. No dissection. No acute chest findings. Reading Location: [facility] CC: Dr. Ulysses Spencer MD; FRANC Aguilar ~ [employer]: Signed [facility] 02-20-2025 Evaluation note Diagnosis Onset Date Resolution Cardiomyopathy acute February 20, 2025 12:55pm Essential hypertension acute Ju 2024 12:55pm Longstanding persistent atrial fibrillation acute February 20 12:55pm Pericardial effusion acute February 20, 2025 12:55pm Thoracic aortic aneurysm (TAA) acute February 20, 2025 12:55pm Rectal bleeding acute March 2:26pm [facility] Work Phone: 1(912) 198-589504-22-2025 Evaluation note* Diagnosis Onset Date Resolution Status Admit Date Cardiomyopathy acute December 7:49am Essential hypertension acute Ap ril 2024 7:49am Longstanding persistent atri al fibrillation acute January 06, 2025 7:49am Pericardial effusion acute Apri l 2024 7:49am Thoracic aortic aneurysm (TAA) acute January 06, 2025 7:49am [facility] Work Phone: 1(133) 945-625004-22-2025 Evaluation note* Diagnosis Onset Date Resolution Status Admit Date Cardiomyopathy acute December 7:49am Essential hypertension acute Ap ril 2024 7:49am Longstanding persistent atri al fibrillation acute January 06, 2025 7:49am Pericardial effusion acute Apri l 2024 7:49am Thoracic aortic aneurysm (TAA) acute January 06, 2025 7:49am Cardiomyopathy acute February 20, 2025 12:55pm Essential hypertension acute Ju 2024 12:55pm Longstanding persistent atri al fibrillation acute February 20, 2025 1 2:55pm Pericardial effusion acute February 20, 2025 12:55pm Thoracic aortic aneurysm (TAA) acute February 20, 2025 12:55pm [facility] Work Phone: 1(888) 282-500504-02-2024 Hospital Discharge instructions Patient Education 12/18/2023 16:18:43 Pericardial Effusion Pericardial Effusion Pericardial effusion is a buildup of fluid around the heart. The heart is surrounded by a thin, double-layered sac (pericardium). When fluid builds up in this sac, it can put too much pressure on theheart and make it harder for the heart to pump blood (cardiac tamponade). This can be life-threatening. What are the causes? Often, the cause of pericardial effusion is not known (idiopathic effusion). In some cases, the condition may be caused by: Infections from a virus, fungus, parasite, or bacteria. Damage to the pericardium from heart surgery or a heart attack. Inflammatory diseases, such as rheumatoid arthritis or lupus. Kidney or thyroid disease. Cancer or treatment for cancer, including radiation or chemotherapy. Certain medicines, including medicines for tuberculosis or seizures. Chest injury. What are the signs or symptoms? Pericardial effusion may not cause symptoms at first, especially if the fluid builds up slowly. In time, pressure on the heart may cause: Chest pain and trouble breathing. This may include pain and shortness of breath that get worse whenlying down. Dizziness and fainting. Coughing and hiccups. Skipped heartbeats. Anxiety and confusion. A bluish skin color (cyanosis). Swollen legs and ankles. A feeling of fullness in the chest. How is this diagnosed? This condition is diagnosed based on your symptoms and testing, which may include: A test that creates ultrasound images of your heart (echocardiogram). A test to examine the electrical functions of your heart (electrocardiogram). Chest X-ray. CT scan. MRI. Blood tests. How is this treated? Treatment for this condition depends on the cause of your condition and how severe your symptoms are. Treatment may include: Medicines, such as: ?NSAIDs, such as ibuprofen. ?Anti-inflammatory medicines, such as steroids. ?Medicines to fight infection, such as antibiotics. Hospital treatment. This may be necessary if the fluid around the heart prevents it from pumping enough blood. Treatment in the hospital may include: ?IV fluids. ?Breathing support. Surgery. This may be needed in severe cases. Surgery may include: ?A procedure to remove fluid from the pericardium by placing a needle into it (pericardiocentesis). ?A procedure to make a permanent opening in the pericardium (pericardial window). ?Open heart surgery. Follow these instructions at home: Take jfid-piv-eeevsdo and prescription medicines only as told by your health care provider. If you were prescribed a medicine to fight infection, such as antibiotic medicine, take it as told by your health care provider. Do not stop taking the medicine even if you start to feel better. Rest as told by your health care provider. Ask your health care provider what activities are safe for you. Keep all follow-up visits as told by your health care provider. This is important. Contact a health care provider if: You have a cough or hiccups that do not go away. You have severe swelling in your legs or ankles. Get help right away if you: Have fast or irregular heartbeats (palpitations). Feel dizzy or light-headed. Faint. Have chest pain. Have trouble breathing. These symptoms may represent a serious problem that is an emergency. Do not wait to see if the symptoms will go away. Get medical help right away. Call your local emergency services (911 in the [place] Do not drive yourself to the hospital. Summary Pericardial effusion is a buildup of fluid around the heart. The fluid can eventually prevent the heart from pumping enough blood (cardiac tamponade), which can be life-threatening. Pericardial effusion may not cause symptoms at first. Treatment for pericardial effusion depends on the cause of your condition and how severe your symptoms are. In severe cases, hospital treatment or surgery may be required. Rest as told by your health care provider. Ask your health care provider what activities are safe for you. This information is not intended to replace advice given to you by your health care provider. Make sure you discuss any questions you have with your health care provider. Document Released: 05/01/2006 Document Revised: 01/20/2020 Document Reviewed: 01/20/2020 Button Patient Education 2020 [employer]. 12/18/2023 16:18:17 Atrial Fibrillation, Peut-xd-Dihj Atrial Fibrillation Atrial fibrillation is a type of heartbeat that is irregular or fast (rapid). If you have this condition, your heart beats without any order. This makes it hard for your heart to pump blood in a normal way. Having this condition gives you more risk for stroke, heart failure, and other heart problems. Atrial fibrillation may start all of a sudden and then stop on its own, or it may become a long-lasting problem. What are the causes? This condition may be caused by heart conditions, such as: High blood pressure. Heart failure. Heart valve disease. Heart surgery. Other causes include: Pneumonia. Obstructive sleep apnea. Lung cancer. Thyroid disease. Drinking too much alcohol. Sometimes the cause is not known. What increases the risk? You are more likely to develop this condition if: You smoke. You are older. You have diabetes. You are overweight. You have a family history of this condition. You exercise often and hard. What are the signs or symptoms? Common symptoms of this condition include: A feeling like your heart is beating very fast. Chest pain. Feeling short of breath. Feeling light-headed or weak. Getting tired easily. Follow these instructions at home: Medicines Take fnfy-rhy-rksuxrt and prescription medicines only as told by your doctor. If your doctor gives you a blood-thinning medicine, take it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 Afib acute [facility] Work Phone: Evaluation note* Diagnosis Onset Date Resolution Status Afib acute Cardiomyopathy acute Longstanding persistent atrial fibrillation acute Pericardial effusion acute [facility] Work Phone: Evaluation note* Diagnosis Onset Date Resolution Status Cardiomyopathy acute Longstanding persistent atrial fibrillation acute Pericardial effusion acute Cardiomyopathy acute Longstanding persistent atrial fibrillation acute Pericardial effusion acute [facility] Work Phone: Hospital course Narrative No data available for this section [facility] Reason for referral (narrative)No reason for [facility] Family History No Family History Records Found Relationship Condition Age at Onset Recorded Date/T gigi mother Diabetes mellitus Unknown Cardiac disease Unknown Hypertension Unknown Cerebrovascular accident (CVA) Unknown Disorder of thyroid Unknown father Cardiac disease Unknown brother Coronary artery disease Unknown Advance Directives No Advanced Directives Records Found Advance Directive Response Recorded Date/ Time Living Will No August 29 11:44am Power of Manufacturing Team Member No August 29, 2018 11:44am Advance Directive Response Recorded Date/ Time Living Will No September 28 9:46pm Power of Manufacturing Team Member No September 28, 2022 9:46pm Advance Directive Response Recorded Date/ Time Living Will No September 28 10:46pm Power of Manufacturing Team Member No September 28, 2022 10:46pm Chief Complaint and Reason for Visit Chief Complaint SORE THROAT, COUGH HEAD INJURY EORDER Reason for Visit Encounter for screen ing for COVID-19 Chief Complaint [facility]- [facility] Chief Complaint NEW ONSET AFIB (SCHI NNER) NEW ONSET A-FIB (KEO) Reason for Visit Afib Chief Complaint NEW ONSET AFIB (SCHI NNER) NEW ONSET A-FIB (KEO) MENOPAUSAL STATE Reason for Visit Afib Chief Complaint NEW ONSET AFIB (SCHI NNER) NEW ONSET A-FIB (KEO) MENOPAUSAL STATE INT LABS Reason for Visit Afib Chief Complaint NEW ONSET AFIB (SCHI NNER) NEW ONSET A-FIB (KEO) MENOPAUSAL STATE INT LABS ELEVATED BP 2 M FU E-ORDER Reason for Visit Afib Cardiomyopathy Longstanding persistent atrial fibrillation Pericardial effusion Chief Complaint NEW ONSET A-FIB (OFO RI) MENOPAUSAL STATE INT LABS ELEVATED BP 2 M FU E-ORDER S/P MARCELO. SALMON./ AFIB Reason for Visit Cardiomyopathy Longstanding persistent atrial fibrillation Pericardial effusion Cardiomyopathy Longstanding persistent atrial fibrillation Pericardial effusion Chief Complaint INT LABS ELEVATED BP 2 M FU E-ORDER S/P MARCELO. SALMON./ AFIB Longstanding persistent atrial fibrillation Reason for Visit Cardiomyopathy Longstanding persistent atrial fibrillation Pericardial effusion Cardiomyopathy Longstanding persistent atrial fibrillation Pericardial effusion Chief Complaint Admit Date 6 M FU January 06, 2025 7:4 9am 6 WK FU February 20, 2025 12:55 pm Reason for Visit Admit Date Cardiomyopathy January 06, 2025 7:4 9am Essential hypertension January 06, 2025 7:49am Longstanding persistent atrial fibrillat ion January 06, 2025 7:49am Pericardial effusion January 06, 2025 7: 49am Thoracic aortic aneurysm (TAA) December 7:49am Chief Complaint Admit Date 6 M FU January 06, 2025 7:4 9am 6 WK FU February 20, 2025 12:55 pm KNOWN TAA March 18, 2025 3:56p m Reason for Visit Admit Date Cardiomyopathy January 06, 2025 7:4 9am Essential hypertension January 06, 2025 7:49am Longstanding persistent atrial fibrillat ion January 06, 2025 7:49am Pericardial effusion January 06, 2025 7: 49am Thoracic aortic aneurysm (TAA) December 7:49am Cardiomyopathy February 20, 2025 12:55 pm Essential hypertension February 20, 2025 12 :55pm Longstanding persistent atrial fibrillat ion February 20, 2025 12:55pm Pericardial effusion February 20, 2025 12:5 5pm Thoracic aortic aneurysm (TAA) February 20, 2025 12:55pm Chief Complaint Admit Date 6 M FU January 06, 2025 7:4 9am 6 WK FU February 20, 2025 12:55 pm KNOWN TAA March 18, 2025 3:56p m CHF April 02, 2025 12:1 7pm Chief Complaint Admit Date 6 M FU January 06, 2025 7:4 9am 6 WK FU February 20, 2025 12:55 pm KNOWN TAA March 18, 2025 3:56p m CHF April 02, 2025 12:1 7pm RECTAL BLEEDING April 16, 2025 2:26 pm Chief Complaint Admit Date 6 WK FU February 20, 2025 12:55 pm KNOWN TAA March 18, 2025 3:56p m CHF April 02, 2025 12:1 7pm RECTAL BLEEDING April 16, 2025 2:26 pm Reason for Visit Admit Date Cardiomyopathy February 20, 2025 12:55 pm Essential hypertension February 20, 2025 12 :55pm Longstanding persistent atrial fibrillat ion February 20, 2025 12:55pm Pericardial effusion February 20, 2025 12:5 5pm Thoracic aortic aneurysm (TAA) February 20, 2025 12:55pm Rectal bleeding April 16, 2025 2:26 pm Summary Purpose Additional Source Comments Goals (unrecognized section and content) Goals may be documented in a n alternate sectionGoals may be documented in an alternate sectionGoals may be documented in an alternate sectionGoals may be documented in an alternate sectionGoals may be documented in an alternate sectionGoals may be documented in an alternate sectionGoals may be documented in an alternate sectionGoals may be documented in an alternate sectionGoals may be documented in an alternate sectionGoals may be documented in an alternate sectionGoals may be documented in an alternate sectionGoals may be documented in an alternate section No data available for this sectionGoals may be documented in an alternate sectionGoals may be documented in an alternate sectionGoals may be documented in an alternate sectionGoals may be documented in an alternate sectionGoals may be documented in an alternate sectionGoals may be documented in an alternate sectionGoals may be documented in an alternate section Care Teams (unrecognized sec tion and content) Team Status: Active Member Role Status Dates Dr. Ulysses Spencer MD Family Provider Active Dr. Ulysses Spencer MD Primary Care Provider Active Team Status: Inactive Member Role Status Dates Dr. Ulysses Spencer MD Primary Care Provider, Referr ing Provider Active ROOF Active Ulysses Oquendo NP, MORTAR CARRIER-C Attending Provider Active Team Status: Inactive Member Role Status Dates Dr. Ulysses Spencer MD Primary Care Provider Active Dr. Tyler Melo MD Attending Provider, Emergency Provider Active Team Status: Inactive Member Role Status Dates Dr. Ulysses Spencer MD Primary Care Pr ovider, Attending Provider, Referring Provider Active Team Status: Inactive Member Role Status Dates Dr. Ulysses Spencer MD Primary Care Provider, Other Provider Active Nicki Hung NP-C Attending Provider, Referring Pr ovider Active Team Status: Inactive Member Role Status Dates Dr. Ulysses Spencer MD Primary Care Provider, Attend ing Provider Active Team Status: Inactive Member Role Status Dates Dr. Ulysses Spencer MD Primary Care Provider, Referr ing Provider Active Dr. Lucho Crowley MD Attending Provider Active Team Status: Active Member Role Status Dates Dr. Ulysses Spencer MD Primary Care Provider Active Dr. Lucho Crowley MD Attending Provider Active Team Status: Active Member Role Status Dates Dr. Ulysses Spencer MD Primary Care Provider Active Dr. Lucho Crowley MD Attending Provider, Referring Pro vider Active Team Status: Active Member Role Status Dates Dr. Ulysses Spencer MD Primary Care Provider, Attend ing Provider Active Team Status: Inactive Member Role Status Dates Dr. Ulysses Spencer MD Primary Care Provider Active Matilde Correia PA, PA Attending Provider, Referr ing Provider Active Team Status: Inactive Member Role Status Dates Dr. Ulysses Spencer MD Primary Care Provider, Referr ing Provider Active Matilde Correia PA, PA Attending Provider Active Team Status: Inactive Member Role Status Dates Dr. Ulysses Spencer MD Primary Care Provider Active Ulysses Oquendo MORTAR CARRIER, MORTAR CARRIER-C Attending Provider, Referring Pro vider Active Team Status: Inactive Member Role Status Dates Dr. Ulysses Spencer MD Primary Care Provider Active Start: January 06, 2025 End: January 06, 2025 Dr. Ulysses Spencer MD Referring Provider Active Start: January 06, 2025 End: January 06, 2025 Matilde Correia PA, PA Attending Provider Active Start: January 06, 2025 End: January 06, 2025 Team Status: Inactive Member Role Status Dates Dr. Ulysses Spencer MD Primary Care Provider Active Start: February 20, 2025 End: February 20, 2025 Dr. Ulysses Spencer MD Referring Provider Active Start: February 20, 2025 End: February 20, 2025 Matilde Correia PA, PA Attending Provider Active Start: February 20, 2025 End: February 20, 2025 Team Status: Active Member Role/Relationship Status Dates Dr. Ulysses Spencer MD Primary Care Provider Active Team Status: Inactive Member Role/Relationship Status Dates Dr. Ulysses Spencer MD Primary Care Provider Active Start: January 06, 2025 End: January 06, 2025 Dr. Ulysses Spencer MD Referring Provider Active Start: January 06, 2025 End: January 06, 2025 Matilde BRUNER, PA Attending Provider Active Start: January 06, 2025 End: January 06, 2025 Team Status: Inactive Member Role/Relationship Status Dates Dr. Ulysses Spencer MD Primary Care Provider Active Start: February 20, 2025 End: February 20, 2025 Dr. Ulysses Spencer MD Referring Provider Active Start: February 20, 2025 End: February 20, 2025 Matilde Correia PA, PA Attending Provider Active Start: February 20, 2025 End: February 20, 2025 Team Status: Inactive Member Role/Relationship Status Dates Dr. Ulysses Spencer MD Primary Care Provider Active Start: March 18, 2025 End: March 18, 2025 Matilde Correia PA, PA Attending Provider Active Start: March 18, 2025 End: March 18, 2025 Matilde Correia PA, PA Referring Provider Active Start: March 18, 2025 End: March 18, 2025 Team Status: Inactive Member Role/Relationship Status Dates Dr. Ulysses Spencer MD Primary Care Provider Active Start: April 02, 2025 End: April 02, 2025 Matilde Correia PA, PA Attending Provider Active Start: April 02, 2025 End: April 02, 2025 Matilde Correia PA, PA Referring Provider Active Start: April 02, 2025 End: April 02, 2025 Team Status: Active Member Role/Relationship Status Dates Dr. Ulysses Spencer MD Primary Care Provider Active Start: April 02, 2025 Dr. Lucho Crowley MD Attending Provider Active S tart: April 02, 2025 Team Status: Inactive Member Role/Relationship Status Dates Dr. Ulysses Spencer MD Primary Care Provider Active Start: April 16, 2025 End: April 16, 2025 Dr. Ulysses Spencer MD Referring Provider Active Start: April 16, 2025 End: April 16, 2025 Dr. Stevie Sheldon MD Attending Provider Active Start: April 16, 2025 End: April 16, 2025 Team Status: Active Member Role/Relationship Status Dates Dr. Ulysses Spencer MD Primary care physician Active Team Status: Inactive Member Role/Relationship Status Dates Dr. Ulysses Spencer MD Primary care physician Active Start: February 20, 2025 End: February 20, 2025 Dr. Ulysses Spencer MD Referring Provider Active Start: February 20, 2025 End: February 20, 2025 Matilde BRUNER PA Attending physician Active Start: February 20, 2025 End: February 20, 2025 Team Status: Inactive Member Role/Relationship Status Dates Dr. Ulysses Spencer MD Primary care physician Active Start: March 18, 2025 End: March 18, 2025 Matilde BRUNER PA Attending physician Active Start: March 18, 2025 End: March 18, 2025 Matilde BRUNER PA Referring Provider Active Start: March 18, 2025 End: March 18, 2025 Team Status: Inactive Member Role/Relationship Status Dates Dr. Ulysses Spencer MD Primary care physician Active Start: April 02, 2025 End: April 02, 2025 Matilde BRUNER PA Attending physician Active Start: April 02, 2025 End: April 02, 2025 Matilde BRUNER PA Referring Provider Active Start: April 02, 2025 End: April 02, 2025 Team Status: Active Member Role/Relationship Status Dates Dr. Ulysses Spencer MD Primary care physician Active Start: April 02, 2025 Dr. Lucho Crowley MD Attending physician Active Start: April 02, 2025 Team Status: Inactive Member Role/Relationship Status Dates Dr. Ulysses Spencer MD Primary care physician Active Start: April 16, 2025 End: April 16, 2025 Dr. Ulysses Spencer MD Referring Provider Active Start: April 16, 2025 End: April 16, 2025 Dr. Stevie Sheldon MD Attending physician Active Start: April 16, 2025 End: April 16, 2025 Team Status: Inactive Member Role/Relationship Status Dates Dr. Ulysses Spencer MD Primary care physician Active Start: June 09, 2025 End: June 09, 2025 Dr. Ulysses Spencer MD Attending physician Active Start: June 09, 2025 End: June 09, 2025 INFORMATION SOURCE (unrecogn ized section and content) DATE CREATED AUTHOR 01/02/2024 [facility] ([place]) DATE CREATED AUTHOR AUTHOR'S ORGANIZ ATION 04/16/2025 [facility] DATE CREATED AUTHOR AUTHOR'S ORGANIZ ATION 07/15/2025 [facility] DATE CREATED AUTHOR AUTHOR'S ORGANIZ ATION 07/28/2025 [facility] Source Comments (unrecognize d section and content) In the event this informatio n is protected by the Federal Confidentiality of Alcohol and Drug Abuse Patient Records regulations: The Federal rules restrict any use of the information to criminally investigate or prosecute any alcohol or drug abuse patient.[facility] Reason for Visit (unrecogniz ed section and content) Reason Comments Appointment Appointment FOR RECORDS PERTAINING TO PATIENTS WHO ARE OR HAVE BEEN ENROLLED IN A CHEMICAL DEPENDENCY/SUBSTANCEABUSE PROGRAM, SOME INFORMATION MAY BE OMITTED. This clinical summary was aggregated from multiple sources. Caution should be exercised in using it in the provision of clinical care. This summary normalizes information from multiple sources, and as a consequence, information in this document may materially change the coding, format and clinical context of patient data. In addition, data may be omitted in some cases. CLINICAL DECISIONS SHOULD BE BASED ON THE PRIMARY CLINICAL RECORDS. [facility]. provides no warranty or guarantee of the accuracy or completeness of information in this document.
--- NOTE | 2025-08-17 08:59 | CL.D_ITS ---
Patient Name: ASHLEY CADE Study Date: 08/17/2025 Performing: Lucho Crowley MD Ht: 60 inches 152.4 cm : 1945 Wt: 134 lbs 60.78 kg Age: 80 Gender: female BSA: 1.57 PROCEDURE(S) PERFORMED [id number])LHC/COR/LV CLINICAL PROFILE AND INDICATIONS Indications: Valvular Disease Heart Failure: None Stress/Imaging Stress/Image Study Performed: No CAD Presentations: No Sxs, no angina. CONCLUSIONS Normal coronary arteries Normal LV size, wall motion,and systolic function Aortic Root Aneurysm RECOMMENDATIONS For aortic root surgery. DESCRIPTION OF PROCEDURE The patient arrived to the procedure lab. The risks and benefits of the procedure as well as a full description of our services here and current unavailability of surgical backup were fully explained to the patient and/or their significant other prior to the catheterization. The Timeout was completed, verifying the correct patient and procedure. The patient's procedural site was prepped and draped in the usual fashion. Local anesthetic was given subcutaneously to right radial region with Lidocaine 2%. Using a modified Seldinger technique, arterial access was obtained via the right radial artery, a 6Fr sheath was inserted. Left Coronary Artery selective angiography was performed in multiple views using a 5 Fr. JL4 catheter. Right Coronary Artery selective angiography was then performed in multiple views using a 5 Fr. JR 5 catheter. Left Ventriculography was performed in PIPER projection using a 5 Fr. Pigtail catheter. LV to AO pullback pressures were then recorded.The arterial sheath was pulled and a TR Band was applied for hemostasis CORONARY ANGIOGRAPHY DOMINANCE: Left Dominant LEFT HEART ASSESSMENT Left Ventricular Ejection Fraction: by LV Gram 55 % Normal LV wall motion Normal Left Ventricular systolic function LEFT MAIN: Angiographically normal LEFT ANTERIOR DESCENDING ARTERY: No significant disease noted CIRCUMFLEX ARTERY: Mild luminal irregularities RIGHT CORONARY ARTERY: Mild luminal irregularities AORTIC ROOT: Dilated COMPLICATIONS No Complications PROCEDURE MEDICATIONS Fentanyl 50 mcg IV Versed 1 mg IV Aspirin (325mg) 1 Tabs PO @ 08/17/2025 07:31:13 Heparin given IA 08/17/2025 08:08:49 Verapamil 2.5mg, Ntg 100mcgs, 3000 units of Heparin given IA 08/17/2025 08:08:49 SUMMARY OF HEMODYNAMIC DATA Time AIR REST ECG 07:28:12 AO 107/48 (73) SA 08:11:04 AO 118/50 (75) 08:20:06 LV 143/10, 20 08:24:09 LV 136/11, 19 08:24:17 LV 103/14, 20 08:25:13 LVp 101/16, 19 08:25:18 AOp 117/55 (81) 08:25:25 Signed By Lucho Crowley MD On 08/17/2025 08:58:21 Lucho Crowley MD
== END 2025-08-17 10:20 | disposition home or self-care (01) ==
PROVIDERS: Physician Assistant Medical; PCP Family Medicine; Referring Provider Internal Medicine Cardiovascular Disease; Visit Provider Internal Medicine Cardiovascular Disease
DX: I71.20 Thoracic aortic aneurysm, without rupture, unspecified (principal); I48.11 Longstanding persistent atrial fibrillation; I42.9 Cardiomyopathy, unspecified; Z79.899 Other long term (current) drug therapy; Z79.01 Long term (current) use of anticoagulants; I10 Essential (primary) hypertension
CPT/HCPCS: 36415; 80048; 85025; 85610; 85730; 93458; 99152; 99153; Q9967; C1769; C1894